=== PATIENT | female | born 1930 | race Caucasian/White ===

== ENCOUNTER 2017-06-06 10:41 | Inpatient (IN) ==
[2017-06-06] MEDS ORDERED: 0.9 % Sodium Chloride 500 ML IVC ONE ×2 (11:06→13:05)
--- NOTE | 2017-06-06 11:08 | Emergency Department Note ---
Disposition Clinical Impression: Atrial fibrillation with RVR, Acute kidney injury Dyspnea Qualifiers: Dyspnea type: unspecified Qualified Code(s): R06.00 - Dyspnea, unspecified Disposition: Admitted As Inpatient Condition: Fair General Adult HPI - General Chief complaint: ED Shortness of Breath/Dyspnea Stated complaint: BRANDT Time Seen by Provider: 06/06/17 10:45 Source: patient Limitations: age Nursing Notes Reviewed: Yes Vital Signs Reviewed: Yes - History of Present Illness HPI Narrative: 86-year-old female who presents to the emergency Department due to shortness of breath. She reports she has a history of atrial fibrillation. She was just admitted a little over one week ago due to congestive heart failure. The patient is a poor historian and is unable to give much more significant history aside from feeling short of breath and feeling "sick". EMS did administer a DuoNeb in route. Pain Scale: 0 Improves with: nothing Worsens with: nothing Associated symptoms: Reports: denies other symptoms Treatments Prior to Arrival: none - Related Data Home Medications Medication Instructions Recorded Confirmed Aspirin [Adult Low Dose Aspirin EC] 81 mg PO QAM 12/29/14 06/06/17 Docusate [Colace] 100 mg PO BID 12/29/14 06/06/17 FLUoxetine HCl [Prozac] 20 mg PO QAM 12/29/14 06/06/17 Nitroglycerin [Nitrostat] 0.4 mg SL Q5M PRN 12/29/14 06/06/17 Simvastatin [Zocor] 20 mg PO 12/29/14 06/06/17 Pantoprazole Sodium [Protonix] 40 mg PO QAM 06/10/15 06/06/17 Albuterol Sulfate [Albuterol 2 puff IH Q4HR PRN 04/26/17 06/06/17 Inhaler] Budesonide/Formoterol 160/4.5 2 puff IH QA 05/19/17 06/06/17 [Symbicort 160/4.5] Diltiazem HCl [Diltiazem 24Hr Cd] 360 mg PO QA 05/19/17 06/06/17 Isosorbide MONOnitrate (24 HR) 60 mg PO [facility] 05/19/17 06/06/17 [Imdur] Pramipexole Di-HCl [Pramipexole 0.5 mg PO 05/19/17 06/06/17 Dihydrochloride] hydrOXYzine HCl [Hydroxyzine HCl] 25 mg PO HS PRN 05/19/17 06/06/17 metOLazone [Zaroxolyn] 5 mg PO QAM 05/19/17 06/06/17 Furosemide [Lasix] 40 mg PO BID 06/06/17 06/06/17 Ipratropium/Albuterol Neb [Duoneb] 3 ml IH 0800,2000 06/06/17 06/06/17 Ipratropium/Albuterol Neb [Duoneb] 3 ml IH Q4H PRN 06/06/17 06/06/17 LORazepam [Ativan] 0.5 mg PO BID PRN 06/06/17 06/06/17 Lactose-Reduced Food [Ensure 1 bottle PO TIDWM 06/06/17 06/06/17 Liquid] Metoprolol Tartrate [Lopressor] 125 mg PO BID 06/06/17 06/06/17 Oxycodone HCl/Acetaminophen 1 each PO Q8H PRN 06/06/17 06/06/17 [Percocet 5-325 mg Tablet] Oxygen 3 l NS CONT 06/06/17 06/06/17 Potassium Chloride 40 meq PO QAM 06/06/17 06/06/17 Allergies Allergy/AdvReac Type Severity Reaction Status Date / Time Sulfa (Sulfonamide AdvReac Nausea Verified 10/20/16 14:06 Antibiotics) All systems ED: reviewed and negative except as stated. Constitutional: Denies: fever Cardiovascular: Reports: palpitations. Denies: chest pain Respiratory: Reports: cough, dyspnea Integumentary: Denies: rash Past Medical History - Past Medical History Medical history: Reports: arthritis, atrial fibrillation, CHF, COPD, coronary artery disease, CVA, GERD, hyperlipidemia, hypertension, osteoporosis Surgical history: Reports: angioplasty/stent, appendectomy, carotid endarterectomy, coronary bypass (CABG), hysterectomy, orthopedic, other, other, LE stent (s), LE vascular intervention Psychiatric history: Reports: anxiety, depression - Social History Smoking Status: Former smoker Smokeless Tobacco Status: No Alcohol use: Reports: none Drug use: Reports: none Physical Exam - General Limitations: age General appearance: alert, in no apparent distress - Head Head exam: atraumatic - Eye Eye exam: Present: normal appearance, PERRL - ENT ENT exam: normal exam - Neck Neck exam: Present: normal inspection - Respiratory Respiratory exam: Present: other (Mild coarse wheezing is present. No respiratory distress she is to get neck.) - Cardiovascular Cardiovascular exam: Present: tachycardia, irregular rhythm - Abdominal Exam Abdominal exam: Present: soft, Non-Tender - Extremities Exam Extremities exam: Present: normal inspection - Skin Skin exam: Present: warm, dry Course Course Narrative: Troponin of 0.04 is chronic. CXR shows no new acute abnormality. Afib RVR on EKG. Started cardizem and HR is now in the 90's. Symptoms of dyspnea have improved markedly after being on cardizem. Will admit. She received a total of 1L of NS. Conservative in hydration due to hx of CHF and recent admission for such. Dr Roque accepts. Vital Signs Temperature 0 F L 06/06/17 10:44 Pulse Rate 140 06/06/17 10:44 Respiratory Rate 18 06/06/17 10:44 Blood Pressure 110/75 06/06/17 10:44 O2 Sat by Pulse Oximetry 96 06/06/17 10:44 Temperature 97.7 F 06/08/17 15:10 Pulse Rate 92 06/08/17 15:10 Respiratory Rate 18 06/08/17 15:10 Blood Pressure 144/80 06/08/17 15:10 O2 Sat by Pulse Oximetry 94 06/08/17 15:10 Oxygen Delivery Oxygen Delivery Nasal Cannula Medical Decision Making - Medical Records Medical records reviewed: Yes I reviewed the patient's medical records. - Lab Data Lab results reviewed: Yes I reviewed the patient's lab results. Result diagrams: 06/07/17 05:30 06/08/17 05:55 Lab Results 06/06/17 06/06/17 06/06/17 Range/Units 11:10 11:10 11:10 WBC 14.9 H D (4.3-11.1) K/mcL RBC 4.49 (3.82-4.97) M/mcL Hgb 12.8 (11.5-15.4) g/dL Hct 41.1 (35.3-44.9) % MCV 91.5 (83.0-100.0) fL MCH 28.5 (28.0-33.3) pg MCHC 31.1 L (31.6-35.5) g/dL RDW 17.7 H (11.5-14.5) % Plt Count 500 H (140-400) K/mcL MPV 10.3 (9.4-12.4) fL Immature Gran % 0.7 (0-4) % Seg Neutrophils % 83.5 % Lymphocytes % 8.3 % Monocytes % 7.3 % Eosinophils % 0.0 % Basophils % 0.2 % Neutrophils # 12.4 H (1.6-8.9) K/mcL Lymphocytes # 1.2 (0.6-4.6) K/mcL Monocytes # 1.1 (0.0-1.3) K/mcL Eosinophils # 0.0 (0.0-0.6) K/mcL Basophils # 0.0 (0.0-0.2) K/mcL Sodium 137 (136-145) mEq/L Potassium 3.4 L (3.5-5.1) mEq/L Chloride 89 L (98-107) mEq/L Carbon Dioxide 35 H (23-29) mEq/L BUN 68 H (8-23) mg/dL Creatinine 1.34 H (0.60-1.20) mg/dL Est GFR ( Amer) 45 L (> 60) Est GFR (Non-Af Amer) 37 L (> 60) BUN/Creatinine Ratio 51 H (6-26) Glucose 183 H (70-105) mg/dL Calculated Osmolality 308 H (280-300) Lactic Acid 3.2 H (0.5-2.2) mmol/L Calcium 9.9 (8.6-10.3) mg/dL Troponin I (< 0.04) ng/mL B-Natriuretic Peptide (Less than 100) pg/mL Urine Color (Yellow) Urine Clarity (Clear) Urine pH (5.0-8.0) pH Units Ur Specific [place] (1.010-1.025) Urine Protein (Neg-Trace) mg/dL Urine Glucose (UA) (Normal) mg/dL Urine Ketones (Negative) mg/dL Urine Blood (Negative) Urine Nitrite (Negative) Urine Bilirubin (Negative) Urine Urobilinogen (Normal) mg/dL Ur Leukocyte Esterase (Negative) Ur Culture Indicated? (NO) 06/06/17 06/06/17 06/06/17 Range/Units 11:10 11:10 13:00 WBC (4.3-11.1) K/mcL RBC (3.82-4.97) M/mcL Hgb (11.5-15.4) g/dL Hct (35.3-44.9) % MCV (83.0-100.0) fL MCH (28.0-33.3) pg MCHC (31.6-35.5) g/dL RDW (11.5-14.5) % Plt Count (140-400) K/mcL MPV (9.4-12.4) fL Immature Gran % (0-4) % Seg Neutrophils % % Lymphocytes % % Monocytes % % Eosinophils % % Basophils % % Neutrophils # (1.6-8.9) K/mcL Lymphocytes # (0.6-4.6) K/mcL Monocytes # (0.0-1.3) K/mcL Eosinophils # (0.0-0.6) K/mcL Basophils # (0.0-0.2) K/mcL Sodium (136-145) mEq/L Potassium (3.5-5.1) mEq/L Chloride (98-107) mEq/L Carbon Dioxide (23-29) mEq/L BUN (8-23) mg/dL Creatinine (0.60-1.20) mg/dL Est GFR ( Amer) (> 60) Est GFR (Non-Af Amer) (> 60) BUN/Creatinine Ratio (6-26) Glucose (70-105) mg/dL Calculated Osmolality (280-300) Lactic Acid 1.8 (0.5-2.2) mmol/L Calcium (8.6-10.3) mg/dL Troponin I 0.04 H* (< 0.04) ng/mL B-Natriuretic Peptide 389 H (Less than 100) pg/mL Urine Color (Yellow) Urine Clarity (Clear) Urine pH (5.0-8.0) pH Units Ur Specific [place] (1.010-1.025) Urine Protein (Neg-Trace) mg/dL Urine Glucose (UA) (Normal) mg/dL Urine Ketones (Negative) mg/dL Urine Blood (Negative) Urine Nitrite (Negative) Urine Bilirubin (Negative) Urine Urobilinogen (Normal) mg/dL Ur Leukocyte Esterase (Negative) Ur Culture Indicated? (NO) 06/06/17 06/06/17 Range/Units 13:29 17:24 WBC (4.3-11.1) K/mcL RBC (3.82-4.97) M/mcL Hgb (11.5-15.4) g/dL Hct (35.3-44.9) % MCV (83.0-100.0) fL MCH (28.0-33.3) pg MCHC (31.6-35.5) g/dL RDW (11.5-14.5) % Plt Count (140-400) K/mcL MPV (9.4-12.4) fL Immature Gran % (0-4) % Seg Neutrophils % % Lymphocytes % % Monocytes % % Eosinophils % % Basophils % % Neutrophils # (1.6-8.9) K/mcL Lymphocytes # (0.6-4.6) K/mcL Monocytes # (0.0-1.3) K/mcL Eosinophils # (0.0-0.6) K/mcL Basophils # (0.0-0.2) K/mcL Sodium (136-145) mEq/L Potassium (3.5-5.1) mEq/L Chloride (98-107) mEq/L Carbon Dioxide (23-29) mEq/L BUN (8-23) mg/dL Creatinine (0.60-1.20) mg/dL Est GFR ( Amer) (> 60) Est GFR (Non-Af Amer) (> 60) BUN/Creatinine Ratio (6-26) Glucose (70-105) mg/dL Calculated Osmolality (280-300) Lactic Acid (0.5-2.2) mmol/L Calcium (8.6-10.3) mg/dL Troponin I 0.03 (< 0.04) ng/mL B-Natriuretic Peptide (Less than 100) pg/mL Urine Color Yellow (Yellow) Urine Clarity Clear (Clear) Urine pH 6.0 (5.0-8.0) pH Units Ur Specific [place] 1.017 (1.010-1.025) Urine Protein Negative (Neg-Trace) mg/dL Urine Glucose (UA) Normal (Normal) mg/dL Urine Ketones Negative (Negative) mg/dL Urine Blood Negative (Negative) Urine Nitrite Negative (Negative) Urine Bilirubin Negative (Negative) Urine Urobilinogen Normal (Normal) mg/dL Ur Leukocyte Esterase Negative (Negative) Ur Culture Indicated? NO (NO) - Radiology Data Radiology results reviewed: Yes I reviewed the patient's radiology results. - EKG Data EKG #1 EKG attestation: Yes I reviewed and interpreted this EKG. Rate: tachycardia Rhythm: A.Fib ST segment depression in: v5, v6 Interpretation: other (Afib RVR, rate 144.) Attestation Statement - Attestation Attestation: I, Samm Drew, examined this patient and my medical decision-making was reviewed with the HEALTH COUNSELOR/PA/Advanced Practice Nurse/Resident Physician. I agree with the documented findings, disposition and treatment plan as described except to the extent set forth below. 86-year-old female presents emergency department with concerns of generalized malaise, shortness of breath. Pt recently admitted for similar symptoms. Pt has a history of atrial fibrillation with RVR. EKG shows A. fib with RVR in the emergency department today. Heart rate improved with Cardizem in the emergency department. Patient be admitted to the hospital for continuation of care.
[2017-06-06 11:23] LABS: Basophils % 0.2 %; Hematocrit 41.1 % (35.3-44.9); Hemoglobin 12.8 g/dL (11.5-15.4); Immature Granulocytes % 0.7 % (0-4); Lymphocytes # 1.2 K/mcL (0.6-4.6); Lymphocytes % 8.3 %; Mean Corpuscular HGB Conc 31.1 g/dL (31.6-35.5); Mean Corpuscular Hemoglobin 28.5 pg (28.0-33.3); Mean Corpuscular Volume 91.5 fL (83.0-100.0); Mean Platelet Volume 10.3 fL (9.4-12.4); Monocytes # 1.1 K/mcL (0.0-1.3); Monocytes % 7.3 %; Neutrophils # 12.4 K/mcL (1.6-8.9); Platelet Count 500 K/mcL (140-400); Red Blood Count 4.49 M/mcL (3.82-4.97); Red Cell Distribution Width 17.7 % (11.5-14.5); Segmented Neutrophils % 83.5 %
[2017-06-06 11:38] LABS: Calcium 9.9 mg/dL (8.6-10.3); Potassium 3.4 mEq/L (3.5-5.1)
[2017-06-06 13:36] LABS: Bilirubin,Urine Negative (Negative); Blood,Urine Negative (Negative); Clarity,Urine Clear (Clear); Color,Urine Yellow (Yellow); Glucose,Urine (UA) Normal (Normal); Ketones,Urine Negative (Negative); Leukocyte Esterase,Urine Negative (Negative); Nitrite,Urine Negative (Negative); Protein,Urine Negative (Neg-Trace); Specific Gravity,Urine 1.017 (1.010-1.025); Urobilinogen,Urine Normal (Normal)
[2017-06-06] MEDS ORDERED: Naloxone 0.4 MG/ML INJ IVP PRN (15:16)
[2017-06-06] MEDS ORDERED: *HR* Morphine 2 MG/ML SYRINGE IVP PRN (15:16)
[2017-06-06] MEDS ORDERED: hydrOXYzine pamoate 25 MG CAPSULE PO PRN (15:20)
[2017-06-06] MEDS ORDERED: Nitroglycerin 0.4 MG TAB.SUBL SL PRN (15:20)
[2017-06-06] MEDS ORDERED: NON-FORMULARY MEDICATION 1 EACH EACH (Oxygen [Oxygen] 3 L) NS SCH (15:30)
--- NOTE | 2017-06-06 15:42 | Internal Med History&Physical ---
Date of Encounter: 06/06/17 Time of Encounter: 15:42 Assessment and Plan (1) Atrial fibrillation with rapid ventricular response Current visit: Yes Status: Acute Patient is presently admitted with atrial fibrillation with a rapid ventricular response. Her heart rate is between 130 and 140. EKG: Atrial fibrillation with rapid ventricular rate. Chest x-ray: Increased interstitial markings otherwise stable exam. Rate control: Intravenous Cardizem drip, titrate to keep heart rate between 80 and 90. Jass miroslava: Metoprolol 125 mg twice a day. Anticoagulation: This patient has a previous history of a GI bleed and recurrent falls. This patient is not a candidate for anticoagulation. (2) COPD (chronic obstructive pulmonary disease) Current visit: No Status: Chronic Atrial fibrillation with rapid ventricular rest is likely secondary to COPD exacerbation. Plan: We will start patient on IV levofloxacin 500 mg every 48 hours. We will start patient on IV Solu-Medrol 40 mg every 8 hour. We will start patient on inhaled bronchodilators. Was monitoring of the respiratory status Qualifiers: COPD type: unspecified COPD Qualified Code(s): J44.9 - Chronic obstructive pulmonary disease, unspecified (3) Hypertension Current visit: No Status: Chronic At this point blood pressure is within acceptable range. Noted that patient's creatinine is mildly worsened. We will trend the labs tomorrow. Qualifiers: Hypertension type: essential hypertension Qualified Code(s): I10 - Essential (primary) hypertension (4) Age-related physical debility Current visit: No Status: Acute Patient is a 86-year-old and she has age-related disability. (5) DVT prophylaxis Current visit: No Status: Acute Antiembolic stockings. Medical decision making: This patient has a moderate to severe risk of worsening in spite of being on appropriate medication due to the underlying advanced age and chronic comorbid conditions. Internal Medicine - H&P: HPI Chief complaint: shortness of breath Admitted From: Emergency Dept Plans for Post Hospital Care: Home History of present illness: Ms. Evans is a 86 year old female who is known to have a history of atrial fibrillation( unable to get anticoagulation due to the previous GI bleed/ recurrent falls) and was recently discharged from this hospital. [facility]. It was noted that, at the [facility] facility patient was reported sick and that was the reason she was sent back to this facility for further evaluation. Patient also known to have a congestive heart failure and multiple other comorbid conditions. Patient was evaluated in the emergency room, it was found that patient was in atrial fibrillation with rapid ventricular rate. She was started on IV Cardizem and was transferred to floor for further management. Upon further evaluation, patient informed me that she was short of breath and when squad came and they gave her del with which she failed little better. Past Med Surg Social Fam HX - Past Medical History Medical history: arthritis, atrial fibrillation, CHF, COPD, coronary artery disease, CVA, GERD, hyperlipidemia, hypertension, osteoporosis Psychiatric history: anxiety, depression - Past Surgical History Surgical History: angioplasty/stent, appendectomy, carotid endarterectomy, coronary bypass (CABG), hysterectomy, orthopedic, other, other, LE stent (s), LE vascular intervention - Social History Smoking Status: Former smoker Smokeless Tobacco Status: No Alcohol use: none Drug use: none - Family History Mother Living Status: Hx Family Cardiac Disorders: Yes (CAD) Father Living Status: Hx Family Cardiac Disorders: Yes (CAD) Hx Family Neurologic Disorders: Yes (epilepsy) Sister Living Status: Unknown Hx Family Cardiac Disorders: Yes (CAD) Hx Family Cancer: No Hx Family Neurologic Disorders: Yes (CVA) Internal Medicine - H&P: Meds Aspirin [Adult Low Dose Aspirin EC] 81 mg PO QAM 12/29/14 [History] Docusate [Colace] 100 mg PO BID 12/29/14 [History] FLUoxetine HCl [Prozac] 20 mg PO QAM 12/29/14 [History] Nitroglycerin [Nitrostat] 0.4 mg SL Q5M PRN 12/29/14 [History] Simvastatin [Zocor] 20 mg PO HS 12/29/14 [History] Pantoprazole Sodium [Protonix] 40 mg PO QAM 06/10/15 [History] Albuterol Sulfate [Albuterol Inhaler] 2 puff IH Q4HR PRN 04/26/17 [History] Budesonide/Formoterol 160/4.5 [Symbicort 160/4.5] 2 puff IH QAM 05/19/17 [ History] Diltiazem HCl [Diltiazem 24Hr Cd] 360 mg PO QAM 05/19/17 [History] Isosorbide MONOnitrate (24 HR) [Imdur] 60 mg PO QAM 05/19/17 [History] Pramipexole Di-HCl [Pramipexole Dihydrochloride] 0.5 mg PO HS 05/19/17 [History] hydrOXYzine HCl [Hydroxyzine HCl] 25 mg PO HS PRN 05/19/17 [History] metOLazone [Zaroxolyn] 5 mg PO QAM 05/19/17 [History] Furosemide [Lasix] 40 mg PO BID 06/06/17 [History] Ipratropium/Albuterol Neb [Duoneb] 3 ml IH 0800,2000 06/06/17 [History] Ipratropium/Albuterol Neb [Duoneb] 3 ml IH Q4H PRN 06/06/17 [History] LORazepam [Ativan] 0.5 mg PO BID PRN 06/06/17 [History] Lactose-Reduced Food [Ensure Liquid] 1 bottle PO TIDWM 06/06/17 [History] Metoprolol Tartrate [Lopressor] 125 mg PO BID 06/06/17 [History] Oxycodone HCl/Acetaminophen [Percocet 5-325 mg Tablet] 1 each PO Q8H PRN [History] Oxygen 3 l NS CONT 06/06/17 [History] Potassium Chloride 40 meq PO QAM 06/06/17 [History] 3 Allergy/AdvReac Type Severity Reaction Status Date / Time Sulfa (Sulfonamide AdvReac Nausea Verified 10/20/16 14:06 Antibiotics) All Systems PM: A 10-system review of systems was performed and is negative for pertinent findings except as documented above in the HPI. - Constitutional Constitutional: no chills, no fever(s), no night sweats - EENT Eyes: no change in vision, no discharge, no pain, no photophobia Ears: no ear discharge, no ear pain, no tinnitus Nose, mouth and throat: no dysphagia, no nasal discharge, no neck pain, no sore throat - Cardiovascular Cardiovascular ROS IM: no chest pain, no diaphoresis, no dyspnea, no lightheadedness, no palpitations, no syncope - Respiratory Respiratory: cough, dyspnea, excessive phlegm production, no wheezing - Gastrointestinal Gastrointestinal: no abdominal pain, no diarrhea, no hematemesis, no hematochezia, no melena, no nausea, no vomiting - Genitourinary Genitourinary: no change in urinary stream, no dysuria, no flank pain, no hematuria - Musculoskeletal Musculoskeletal ROS IM: no numbness, no tingling - Integumentary Integumentary IM: no rash, no unusual bruising - Neurological Neurological ROS: no confusion, no convulsions, no focal weakness, no numbness, no tingling, no tremor(s) - Hematologic/Lymphatic Hematologic/Lymphatic: no easy bruising - Constitutional Vitals: Temp Pulse Resp BP Pulse Ox 97.6 F 90 16 119/57 95 06/06/17 14:17 06/06/17 14:17 06/06/17 14:17 06/06/17 14:17 06/06/17 14:17 General appearance: Present: A&O X 3, pleasant, no acute distress, answers questions appropriately - Head Head exam: Present: atraumatic, normocephalic - Eye Eye exam: Present: PERRL, conjuntiva pink, sclera anicteric Pupils: Present: PERRL - Neck Neck exam general surgery: Present: supple, trachea midline. Absent: lymphadenopathy - Respiratory Respiratory exam: Present: CTAB. Absent: accessory muscle use, rales, rhonchi, wheezes - Cardiovascular Cardiovascular exam: Present: RRR, +S1, +S2. Absent: diastolic murmur, gallop, rubs, systolic murmur - GI/Abdominal GI/Abdominal exam: Present: normal bowel sounds, soft, no peritoneal signs. Absent: distended, tenderness - Extremities Exam Extremities exam: Present: warm, radial pulses palpable and symmetrical. Absent : calf tenderness, cyanotic, pedal edema - Neurological Exam Neurological exam: Present: CN II-XII intact, oriented X3, no focal deficits. Absent: pronater drift, facial droop, speech deficit - Skin Skin exam: Present: dry, intact Internal Med - H&P Results - Labs CBC & Chem 7: 06/06/17 11:10 06/06/17 11:10 Labs: Urine 06/06/17 Range/Units 13:29 Urine Color Yellow (Yellow) Urine Clarity Clear (Clear) Urine pH 6.0 (5.0-8.0) pH Units Ur Specific [place] 1.017 (1.010-1.025) Urine Protein Negative (Neg-Trace) mg/dL Urine Glucose (UA) Normal (Normal) mg/dL
[2017-06-06] MEDS: Ipratropium/Albuterol Neb 3 ML IH SCH ×4 (16:53→21:12)
[2017-06-06] MEDS ORDERED: Levofloxacin 500 MG/100 ML 500 MG/100 ML BAG IVPB SCH (18:00)
[2017-06-06] MEDS: *HR* OxyCODONE/APAP 5/325 TABLET PO PRN (20:45)
[2017-06-07] MEDS: Ipratropium/Albuterol Neb 3 ML IH SCH ×13 (00:01→23:45)
[2017-06-07] MEDS: MethylPREDNISolone 40 MG/ML VIAL IVP SCH ×3 (00:18→16:02)
[2017-06-07 05:48] LABS: INR 1.2; Prothrombin Time 13.5 Seconds (9.4-12.1)
[2017-06-07 05:51] LABS: Activated Partial Thrombo Time 25.9 Seconds (26.0-36.0); Basophils % 0.1 %; Hematocrit 35.5 % (35.3-44.9); Immature Granulocytes % 0.6 % (0-4); Lymphocytes # 0.7 K/mcL (0.6-4.6); Lymphocytes % 5.9 %; Mean Corpuscular HGB Conc 31.5 g/dL (31.6-35.5); Mean Corpuscular Hemoglobin 29.2 pg (28.0-33.3); Mean Corpuscular Volume 92.7 fL (83.0-100.0); Mean Platelet Volume 10.3 fL (9.4-12.4); Monocytes # 0.1 K/mcL (0.0-1.3); Monocytes % 0.8 %; Neutrophils # 10.6 K/mcL (1.6-8.9); Platelet Count 389 K/mcL (140-400); Red Blood Count 3.83 M/mcL (3.82-4.97); Red Cell Distribution Width 17.7 % (11.5-14.5); Segmented Neutrophils % 92.6 %
[2017-06-07 05:54] LABS: Hemoglobin 11.2 g/dL (11.5-15.4)
[2017-06-07 06:07] LABS: Alanine Aminotransferase 9 Units/L (7-52); Albumin/Globulin Ratio 0.9 (1.1-2.2); Alkaline Phosphatase 76 Units/L (34-104); Aspartate Amino Transferase 15 Units/L (13-39); BUN/Creatinine Ratio 60 (6-26); Bilirubin,Total 0.3 mg/dL (0.3-1.0); Blood Urea Nitrogen 58 mg/dL (8-23); Calcium 9.3 mg/dL (8.6-10.3); Carbon Dioxide 36 mEq/L (23-29); Chloride 93 mEq/L (98-107); Chol/HDL Ratio 3.5 (0-4.9); Cholesterol 130 mg/dL (< 200); Globulin 3.3 g/dL (2.4-3.5); Glucose 179 mg/dL (70-105); HDL Cholesterol 37 mg/dL (40-59); LDL Cholesterol,Calculated 81 mg/dL (0-99); Magnesium 2.2 mg/dL (1.6-2.6); Osmolality,Calculated 313 (280-300); Phosphorous 3.6 mg/dL (2.7-4.5); Potassium 3.4 mEq/L (3.5-5.1); Sodium 141 mEq/L (136-145); Total Protein 6.3 g/dL (6.4-8.9); Triglycerides 60 mg/dL (< 150); eGFR For African Americans > 60 (> 60); eGFR For Non-African Americans 54 (> 60)
[2017-06-07] MEDS: *HR* OxyCODONE/APAP 5/325 TABLET PO PRN ×3 (06:46→18:36)
[2017-06-07] MEDS: Isosorbide MONOnitrate (24 HR) 60 MG TAB.ER.24H PO SCH (09:08)
[2017-06-07] MEDS: FLUoxetine 20 MG CAPSULE PO SCH (09:08)
[2017-06-07] MEDS: Aspirin Enteric Coated 81 MG Tablet PO SCH (09:08)
[2017-06-07] MEDS: *HR* LORazepam 0.5 MG TABLET PO PRN ×2 (11:29→22:42)
--- NOTE | 2017-06-07 13:13 | Internal Med Progress Note ---
Date of Encounter: 06/07/17 Time of Encounter: 13:11 - Assessment and plan (1) Acute and chronic respiratory failure with hypoxia Current Visit: Yes Status: Acute Assessment and plan: Acute on chronic hypoxic respiratory failure secondary to acute COPD exacerbation due to sepsis from acute bacterial bronchitis Continue Levaquin, Solu-Medrol, DuoNeb's and oxygen therapy (2) Atrial fibrillation with rapid ventricular response Current Visit: Yes Status: Acute Assessment and plan: Secondary to acute COPD exacerbation Continue metoprolol Continue Cardizem drip (the patient takes diltiazem 360 mg daily) No anticoagulation due to history of recurrent severe GI bleed and falls (3) CKD (chronic kidney disease) Current Visit: No Status: Chronic Assessment and plan: Acute on chronic renal failure in the setting of chronic kidney disease of stage III, improving No IV fluids due to severe congestion Consider Lasix Qualifiers: Chronic kidney disease stage: stage 3 (moderate) Qualified Code(s): N18.3 - Chronic kidney disease, stage 3 (moderate) (4) Severe peripheral arterial disease Current Visit: No Status: Chronic (5) History of coronary artery bypass graft Current Visit: No Status: Chronic (6) History of CVA (cerebrovascular accident) Current Visit: No Status: Chronic (7) COPD exacerbation Current Visit: No Status: Chronic (8) Hypokalemia Current Visit: No Status: Acute Assessment and plan: Replete as needed - Subjective Interval history: Very congested, very short of breath, no fevers or chills, no chest pain no abdominal pain or dysuria - Constitutional Vitals: Temp Pulse Resp BP Pulse Ox 97.8 F 90 16 117/65 93 06/07/17 12:07 06/07/17 12:07 06/07/17 12:07 06/07/17 12:07 06/07/17 12:07 General appearance: Present: A&O X 3, pleasant, no acute distress, answers questions appropriately - Head Head exam: Present: atraumatic, normocephalic - Eye Eye exam: Present: PERRL, conjuntiva pink, sclera anicteric Pupils: Present: PERRL - Neck Neck exam general surgery: Present: supple, trachea midline. Absent: lymphadenopathy - Respiratory Respiratory exam: Present: CTAB, rales, wheezes (Diffuse crackles and wheezing) . Absent: accessory muscle use, rhonchi - Cardiovascular Cardiovascular exam: Present: RRR, +S1, +S2. Absent: diastolic murmur, gallop, rubs, systolic murmur - GI/Abdominal GI/Abdominal exam: Present: normal bowel sounds, soft, no peritoneal signs. Absent: distended, tenderness - Extremities Exam Extremities exam: Present: warm, radial pulses palpable and symmetrical. Absent : calf tenderness, cyanotic, pedal edema - Neurological Exam Neurological exam: Present: CN II-XII intact, oriented X3, no focal deficits. Absent: pronater drift, facial droop, speech deficit - Skin Skin exam: Present: dry, intact Internal Medicine: Result - Labs CBC & Chem 7: 06/07/17 05:30 06/07/17 05:30 Labs: Short CBC 06/07/17 Range/Units 05:30 WBC 11.4 H (4.3-11.1) K/mcL Hgb 11.2 L D (11.5-15.4) g/dL Hct 35.5 (35.3-44.9) % Plt Count 389 (140-400) K/mcL Neutrophils # 10.6 H (1.6-8.9) K/mcL BMP 06/07/17 05:30 Sodium 141 Potassium 3.4 L Chloride 93 L Carbon Dioxide 36 H BUN 58 H Creatinine 0.97 Glucose 179 H Calcium 9.3 Cardiac Enzymes 06/06/17 06/07/17 Range/Units 23:46 05:30 Troponin I 0.03 0.03 (< 0.04) ng/mL Liver Function 06/07/17 Range/Units 05:30 Total Bilirubin 0.3 (0.3-1.0) mg/dL AST 15 (13-39) Units/L ALT 9 (7-52) Units/L Alkaline Phosphatase 76 (34-104) Units/L Albumin 3.0 L (3.5-5.7) g/dL - ABG Interpretation ABG results: PT/INR, D-dimer PT 13.5 Seconds (9.4-12.1) H 06/07/17 05:30 Consult Discharge Plan - Plan Referrals: Tamiko Keys CNP [Primary Care Provider] - 06/15/17 10:35 am Adis Rey MD [Partnered Physician] - 01/23/18 1:45 pm Aubrey Torres MD [Partnered Physician] - 06/24/17 11:30 am
--- NOTE | 2017-06-07 13:57 | Electrocardiograph Report ---
[place] [id number] Test Date: 2017-06-06 Pat Name: Ivette Evans Department: 104 Room: [id number] Gender: F Ham Stringer: : 1930 Requested By: Samm Drew Order Number: [id number] Reading MD: Kandice Nelson Measurements Intervals [place] Rate: 144 P: CT: 0 QRS: 112 QRSD: 93 T: -66 QT: 278 QTc: 361 Interpretive Statements ATRIAL FIBRILLATION WITH RAPID VENTRICULAR RESPONSE ST DEVIATION AND MODERATE T-WAVE ABNORMALITY, CONSIDER ANTERIOR ISCHEMIA [-0.1+ mV T WAVE IN V3/V4] ST DEVIATION AND MODERATE T-WAVE ABNORMALITY, CONSIDER INFERIOR ISCHEMIA [-0.1+ mV T WAVE IN II/aVF] Electronically Signed On 06-07-2017 13:55:42 EST by Kandice Nelson
[2017-06-08] MEDS: MethylPREDNISolone 40 MG/ML VIAL IVP SCH ×2 (00:53→09:17)
[2017-06-08] MEDS: *HR* OxyCODONE/APAP 5/325 TABLET PO PRN ×3 (00:53→14:57)
[2017-06-08] MEDS: Ipratropium/Albuterol Neb 3 ML IH SCH ×6 (03:57→23:34)
[2017-06-08 06:39] LABS: BUN/Creatinine Ratio 56 (6-26); Blood Urea Nitrogen 57 mg/dL (8-23); Calcium 9.2 mg/dL (8.6-10.3); Carbon Dioxide 32 mEq/L (23-29); Chloride 97 mEq/L (98-107); Glucose 215 mg/dL (70-105); Osmolality,Calculated 302 (280-300); Potassium 4.9 mEq/L (3.5-5.1); Sodium 135 mEq/L (136-145); eGFR For African Americans > 60 (> 60); eGFR For Non-African Americans 51 (> 60)
[2017-06-08] MEDS: Aspirin Enteric Coated 81 MG Tablet PO SCH (09:17)
[2017-06-08] MEDS: FLUoxetine 20 MG CAPSULE PO SCH (09:19)
[2017-06-08] MEDS: Isosorbide MONOnitrate (24 HR) 60 MG TAB.ER.24H PO SCH (09:49)
[2017-06-08] MEDS: predniSONE 20 MG TABLET PO SCH (13:19)
[2017-06-08] MEDS: Furosemide 40 MG/4 ML VIAL IVP SCH (13:19)
[2017-06-08] MEDS: Diltiazem CD (24hr) 180 MG CAPSULE PO SCH (16:36)
[2017-06-08] MEDS: *HR* LORazepam 0.5 MG TABLET PO PRN (16:36)
--- NOTE | 2017-06-08 17:31 | Internal Med Progress Note ---
<Raza Garcia - Last Filed: 06/08/17 17:28> Date of Encounter: 06/08/17 Time of Encounter: 08:00 - Assessment and plan (1) Atrial fibrillation with rapid ventricular response Current Visit: Yes Status: Acute Assessment and plan: Secondary to COPD exacerbation and diastolic heart failure exacerbation. Currently rate controlled while weaning off Cardizem drip with plans to switch to oral Cardizem today. 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 - Continue to wean back to patient's baseline of 3 L nasal cannula oxygen - IV Lasix 40 mg daily - 2 L fluid restrictions - 40 mg by mouth prednisone - Levaquin 750 every 48 hours - Daily weights, 2 g sodium restrictions - Continue cardiac monitoring (4) Diastolic CHF Current Visit: No Status: Acute Assessment and plan: Patient demonstrates volume overload with auscultation demonstrating diffuse rhonchi, JVD and a BNP of 456 Plan: - 40 mg IV Lasix daily - Fluid restrictions, sodium restrictions and daily weights as discussed above - Wean oxygen as tolerated, monitor rate and rhythm Qualifiers: Congestive heart failure chronicity: acute on chronic Qualified Code(s): I50.33 - Acute on chronic diastolic (congestive) heart failure (5) DVT prophylaxis Current Visit: No Status: Acute Assessment and plan: Subcutaneous heparin (6) Hyperglycemia Current Visit: Yes Status: Acute Assessment and plan: No documentation of previous diabetes. Glucose 215 in the setting of steroid use. - We will start low-dose sliding scale with before meals and at bedtime glucose checks - Subjective Interval history: Mrs. Evans has been seen and evaluated at bedside. She is awake alert and interactive no acute distress. She states that she does have some shortness of breath but improved compared to yesterday denies any chest pain or chest pressure, nausea vomiting diarrhea constipation. She denies any other concerns at this time. - Constitutional Vitals: Temp Pulse Resp BP Pulse Ox 97.7 F 92 18 144/80 94 06/08/17 15:10 06/08/17 15:10 06/08/17 15:10 06/08/17 15:10 06/08/17 15:10 General appearance: Present: A&O X 3, pleasant, no acute distress, answers questions appropriately Exam: General: Patient alert, awake, oriented 3, interactive, in no acute distress HEENT: Normocephalic, atraumatic, pupils equal reactive to light, neck supple trachea midline no palpable lymphadenopathy, no thyromegaly. Chest: Symmetric bilateral correlating with respiratory effort, effort nonlabored. Cardiac: Irregularly irregular heart rate and rhythm. no bruits appreciated bilateral carotids, Radial pulses 2+ bilateral, posterior tibial and dorsal pedal pulses 2+ bilateral. Respiratory: Diminished inspiratory and expiratory breath sounds, diffuse rhonchi Abdomen: Soft, nontender, positive bowel sounds, no palpable masses appreciated on examination Extremities: Symmetric bilateral, bilateral lower extremities without erythema or edema patient moving all 4 extremities spontaneously. Neurologic: No focal deficits appreciated on examination. Face symmetric, muscle strength symmetric bilateral upper and lower extremities. Internal Medicine: Result - Labs CBC & Chem 7: 06/07/17 05:30 06/08/17 05:55 Labs: BMP 06/08/17 05:55 Sodium 135 L Potassium 4.9 Chloride 97 L Carbon Dioxide 32 H BUN 57 H Creatinine 1.02 Glucose 215 H Calcium 9.2 - ABG Interpretation ABG results: PT/INR, D-dimer PT 13.5 Seconds (9.4-12.1) H 06/07/17 05:30 Consult Discharge Plan - Plan Referrals: Tamiko Keys CNP [Primary Care Provider] - 06/15/17 10:35 am Adis Rey MD [Partnered Physician] - 06/15/17 1:45 pm Aubrey Torres MD [Partnered Physician] - 06/24/17 11:30 am <Carlos Wills - Last Filed: 06/08/17 18:53> Date of Encounter: 06/08/17 - Assessment and plan (1) Acute and chronic respiratory failure with hypoxia Current Visit: Yes Status: Acute (2) Atrial fibrillation Current Visit: No Status: Chronic Qualifiers: Atrial fibrillation type: paroxysmal Qualified Code(s): I48.0 - Paroxysmal atrial fibrillation (3) CHF exacerbation Current Visit: No Status: Acute Qualifiers: Congestive heart failure type: diastolic Qualified Code(s): I50.33 - Acute on chronic diastolic (congestive) heart failure (4) CKD (chronic kidney disease) Current Visit: No Status: Chronic Qualifiers: Chronic kidney disease stage: stage 3 (moderate) Qualified Code(s): N18.3 - Chronic kidney disease, stage 3 (moderate) (5) Hypertension Current Visit: No Status: Chronic Qualifiers: Hypertension type: essential hypertension Qualified Code(s): I10 - Essential (primary) hypertension - Constitutional Vitals: Temp Pulse Resp BP Pulse Ox 97.7 F 92 16 144/80 93 06/08/17 15:10 06/08/17 15:10 06/08/17 16:44 06/08/17 15:10 06/08/17 16:44 Internal Medicine: Result - Labs CBC & Chem 7: 06/07/17 05:30 06/08/17 05:55 Labs: BMP 06/08/17 05:55 Sodium 135 L Potassium 4.9 Chloride 97 L Carbon Dioxide 32 H BUN 57 H Creatinine 1.02 Glucose 215 H Calcium 9.2 - ABG Interpretation ABG results: PT/INR, D-dimer PT 13.5 Seconds (9.4-12.1) H 06/07/17 05:30 - Attending Attestation I examined this patient and my medical decision-making was reviewed with the Resident Physician on 06/08/17. I agree with the documented findings, disposition and treatment plan as described except to the extent set forth below. Ms Evans is currently admitted for rapid a fib and CHR exacerbation. She remains moderate to high risk due to potential for worsening clinical status. Ms Evans feels anxious. She has a lot of congestion in her chest. No fever or chills. No abd pain. Exam Alert. Comfortable Mucus membranes dry Heart irreg Lungs with rhonchi Abd soft I/P 1. Hypoxia 2. A fib 3. CHF Further diagnoses and plan as above.
[2017-06-08] MEDS ORDERED: D5% in Water 1,000 ML IVC PRN (17:41)
[2017-06-08] MEDS ORDERED: *HR* Dextrose 50 % in Water (Syg) 50 ML SYRINGE IVP PRN (17:41)
[2017-06-08] MEDS ORDERED: Dextrose Gel 15 GM/37.5 ML TUBE PO PRN ×2 (17:41)
[2017-06-08] MEDS ORDERED: Levofloxacin 750 MG/150 ML 750 MG/150 ML BAG IVPB SCH (18:00)
[2017-06-08] MEDS: *HR* Heparin 5,000 UNIT/ML VIAL SQ SCH (18:42)
[2017-06-09] MEDS: *HR* OxyCODONE/APAP 5/325 TABLET PO PRN ×3 (00:03→16:34)
[2017-06-09] MEDS: *HR* LORazepam 0.5 MG TABLET PO PRN ×3 (00:04→14:39)
[2017-06-09] MEDS: Insulin LISPRO 300 UNITS/3 ML VIAL SQ SCH ×5 (00:04→20:09)
[2017-06-09] MEDS: Ipratropium/Albuterol Neb 3 ML IH SCH ×6 (04:18→23:21)
[2017-06-09 05:38] LABS: Basophils % 0.3 %; Hematocrit 34.6 % (35.3-44.9); Hemoglobin 10.8 g/dL (11.5-15.4); Immature Granulocytes % 2.2 % (0-4); Lymphocytes # 0.8 K/mcL (0.6-4.6); Lymphocytes % 7.4 %; Mean Corpuscular HGB Conc 31.2 g/dL (31.6-35.5); Mean Corpuscular Volume 92.8 fL (83.0-100.0); Mean Platelet Volume 9.9 fL (9.4-12.4); Monocytes # 0.5 K/mcL (0.0-1.3); Monocytes % 4.1 %; Neutrophils # 9.5 K/mcL (1.6-8.9); Platelet Count 371 K/mcL (140-400); Red Blood Count 3.73 M/mcL (3.82-4.97); Red Cell Distribution Width 17.3 % (11.5-14.5)
[2017-06-09] MEDS: *HR* Heparin 5,000 UNIT/ML VIAL SQ SCH ×2 (05:48→16:34)
[2017-06-09 05:54] LABS: Albumin 2.9 g/dL (3.5-5.7); Albumin/Globulin Ratio 0.9 (1.1-2.2); Bilirubin,Total 0.3 mg/dL (0.3-1.0); Globulin 3.2 g/dL (2.4-3.5); Potassium 4.7 mEq/L (3.5-5.1); Total Protein 6.1 g/dL (6.4-8.9)
[2017-06-09] MEDS: predniSONE 20 MG TABLET PO SCH (09:43)
[2017-06-09] MEDS: Furosemide 40 MG/4 ML VIAL IVP SCH (09:43)
[2017-06-09] MEDS: FLUoxetine 20 MG CAPSULE PO SCH (09:44)
[2017-06-09] MEDS: Aspirin Enteric Coated 81 MG Tablet PO SCH (09:44)
[2017-06-09] MEDS: Diltiazem CD (24hr) 180 MG CAPSULE PO SCH (09:45)
--- NOTE | 2017-06-09 10:43 | Discharge Summary ---
Date of Encounter: 06/09/17 Time of Encounter: 10:43 - Discharge Diagnosis (1) Atrial fibrillation with rapid ventricular response Priority: Primary Status: Acute (2) CKD (chronic kidney disease) Priority: Primary Status: Chronic Qualifiers: Chronic kidney disease stage: stage 3 (moderate) Qualified Code(s): N18.3 - Chronic kidney disease, stage 3 (moderate) (3) Acute and chronic respiratory failure with hypoxia Priority: Primary Status: Acute (4) Diastolic CHF Priority: Primary Status: Acute Qualifiers: Congestive heart failure chronicity: acute on chronic Qualified Code(s): I50.33 - Acute on chronic diastolic (congestive) heart failure (5) DVT prophylaxis Priority: Secondary Status: Acute (6) Hyperglycemia Priority: Primary Status: Acute - Discharge Medications Home Medications: Aspirin [Adult Low Dose Aspirin EC] 81 mg PO QAM 12/29/14 [History] Docusate [Colace] 100 mg PO BID 12/29/14 [History] FLUoxetine HCl [Prozac] 20 mg PO QAM 12/29/14 [History] Nitroglycerin [Nitrostat] 0.4 mg SL Q5M PRN 12/29/14 [History] Simvastatin [Zocor] 20 mg PO HS 12/29/14 [History] Pantoprazole Sodium [Protonix] 40 mg PO QAM 06/10/15 [History] Albuterol Sulfate [Albuterol Inhaler] 2 puff IH Q4HR PRN 04/26/17 [History] Budesonide/Formoterol 160/4.5 [Symbicort 160/4.5] 2 puff IH QAM 05/19/17 [ History] Diltiazem HCl [Diltiazem 24Hr Cd] 360 mg PO QAM 05/19/17 [History] Isosorbide MONOnitrate (24 HR) [Imdur] 60 mg PO QAM 05/19/17 [History] Pramipexole Di-HCl [Pramipexole Dihydrochloride] 0.5 mg PO HS 05/19/17 [History] hydrOXYzine HCl [Hydroxyzine HCl] 25 mg PO HS PRN 05/19/17 [History] metOLazone [Zaroxolyn] 5 mg PO QAM 05/19/17 [History] Furosemide [Lasix] 40 mg PO BID 06/06/17 [History] Ipratropium/Albuterol Neb [Duoneb] 3 ml IH 0800,199906/06/17 [History] Ipratropium/Albuterol Neb [Duoneb] 3 ml IH Q4H PRN 06/06/17 [History] LORazepam [Ativan] 0.5 mg PO BID PRN 06/06/17 [History] Lactose-Reduced Food [Ensure Liquid] 1 bottle PO TIDWM 06/06/17 [History] Metoprolol Tartrate [Lopressor] 125 mg PO BID 06/06/17 [History] Oxycodone HCl/Acetaminophen [Percocet 5-325 mg Tablet] 1 each PO Q8H PRN [History] Oxygen 3 l NS CONT 06/06/17 [History] Potassium Chloride 40 meq PO QAM 06/06/17 [History] Allergies/Adverse Reactions: 3 Allergy/AdvReac Type Severity Reaction Status Date / Time Sulfa (Sulfonamide AdvReac Nausea Verified 10/20/16 14:06 Antibiotics) Date of admission: 06/06/17 17:25 Primary care physician: Tamiko Keys CNP Consults: 06/07/17 11:40 Consult to Magazine Repairer [CONS] Routine Reason for SW Consult: From [facility] 06/08/17 10:58 Consult to Physical Therapy [CONS] Routine Comment: Evaluate, develop and implement POC Reason for Consult: Return to [facility]CF 06/08/17 10:59 Consult to Occupational Therapy [CONS] Routine Comment: Evaluate, develop and implement POC Reason for Consult: Return to ECF Discharging clinician: Raza Garcia Anticipated date of discharge: 06/09/17 - Patient Status Condition: Fair - Discharge Instructions Follow Up With: Tamiko Keys CNP [Primary Care Provider] - 06/15/17 10:35 am Adis Rey MD [Partnered Physician] - 06/15/17 1:45 pm Aubrey Torres MD [Partnered Physician] - 06/24/17 11:30 am Hospital course: Ms. Evans is a 86 year old female - Time Spent with Patient Total time spent providing and/or coordinating discharge services: - Constitutional Vitals: Temp Pulse Resp BP Pulse Ox 97.7 F 70 14 107/62 94 06/09/17 10:27 06/09/17 10:27 06/09/17 10:27 06/09/17 10:27 06/09/17 10:27 General appearance: Present: A&O X 3, pleasant, no acute distress, answers questions appropriately - VTE Documentation of Mechanical Device: Graduated compression elastic hosiery
--- NOTE | 2017-06-09 11:19 | Internal Med Progress Note ---
<Raza Garcia - Last Filed: 06/09/17 11:16> Date of Encounter: 06/09/17 Time of Encounter: 10:00 - Assessment and plan (1) Atrial fibrillation with rapid ventricular response Current Visit: Yes Status: Acute Assessment and plan: Secondary to COPD exacerbation and diastolic heart failure exacerbation. Currently uncontrolled, difficulty likely secondary to hypoxia, COPD exacerbation and vascular overload. Plan: - Cardizem 360 CD by mouth every morning - Metoprolol tartrate 125 mg by mouth twice a day - Improve respiratory status and diuresis. 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 - Continue to wean back to patient's baseline of 3 L nasal cannula oxygen - IV Lasix 40 mg daily - 1 time dose IV Lasix 40 mg push - 2 L fluid restrictions - 40 mg by mouth prednisone - Levaquin 750 every 48 hours - Daily weights, 2 g sodium restrictions - Continue cardiac monitoring - Symbicort 160 BID (4) Diastolic CHF Current Visit: No Status: Acute Assessment and plan: Patient demonstrates volume overload with auscultation demonstrating diffuse rhonchi, JVD and a BNP of 456 Plan: - 40 mg IV Lasix daily - Fluid restrictions, sodium restrictions and daily weights as discussed above - Wean oxygen as tolerated, monitor rate and rhythm Qualifiers: Congestive heart failure chronicity: acute on chronic Qualified Code(s): I50.33 - Acute on chronic diastolic (congestive) heart failure (5) Hyperglycemia Current Visit: Yes Status: Acute Assessment and plan: No documentation of previous diabetes. Glucose 197 in the setting of steroid use. - Continue low-dose sliding scale with before meals and at bedtime glucose checks (6) DVT prophylaxis Current Visit: No Status: Acute Assessment and plan: Subcutaneous heparin - Subjective Interval history: Mrs. Evans has been seen and evaluated at bedside. She is awake alert interactive and says that she is very lethargic. She is asking about her discharge back to [facility] for which her is agreeable. She denies any acute changes overnight. She denies any shortness of breath increased work of breathing but does have difficulty with ambulation. According to nursing staff her oxygen saturation dropped to 70% at her baseline 3 L nasal Oxygen with any sort of ambulation. - Constitutional Vitals: Temp Pulse Resp BP Pulse Ox 97.7 F 70 14 107/62 94 06/09/17 10:27 06/09/17 10:27 06/09/17 10:27 06/09/17 10:27 06/09/17 10:27 General appearance: Present: A&O X 3, pleasant, no acute distress, answers questions appropriately Exam: General: Patient alert, awake, oriented 3, interactive, in no acute distress HEENT: Normocephalic, atraumatic, pupils equal reactive to light, nasal cavity patent and open septum median position, oral mucosa moist, uvula midline, neck supple trachea midline no palpable lymphadenopathy, no thyromegaly. Chest: Symmetric bilateral correlating with respiratory effort, effort nonlabored. Cardiac: Irregularly irregular heart rate and rhythm. no bruits appreciated bilateral carotids, Radial pulses 2+ bilateral, posterior tibial and dorsal pedal pulses 2+ bilateral. Respiratory: Diminished inspiratory and expiratory breath sounds, diffuse rhonchi with exhalation wheezing. Abdomen: Soft, nontender, positive bowel sounds, no palpable masses appreciated on examination Extremities: Symmetric bilateral, bilateral lower extremities without erythema or edema patient moving all 4 extremities spontaneously. Neurologic: No focal deficits appreciated on examination. Face symmetric, muscle strength symmetric bilateral upper and lower extremities. Internal Medicine: Result - Labs CBC & Chem 7: 06/09/17 05:21 06/09/17 05:21 Labs: Short CBC 06/09/17 Range/Units 05:21 WBC 11.0 (4.3-11.1) K/mcL Hgb 10.8 L (11.5-15.4) g/dL Hct 34.6 L (35.3-44.9) % Plt Count 371 (140-400) K/mcL Neutrophils # 9.5 H (1.6-8.9) K/mcL BMP 06/09/17 05:21 Sodium 134 L Potassium 4.7 Chloride 95 L Carbon Dioxide 33 H BUN 50 H Creatinine 1.08 Glucose 197 H Calcium 9.0 Liver Function 06/09/17 Range/Units 05:21 Total Bilirubin 0.3 (0.3-1.0) mg/dL AST 16 (13-39) Units/L ALT 9 (7-52) Units/L Alkaline Phosphatase 62 (34-104) Units/L Albumin 2.9 L (3.5-5.7) g/dL - ABG Interpretation ABG results: PT/INR, D-dimer PT 13.5 Seconds (9.4-12.1) H 06/07/17 05:30 - VTE Documentation of Mechanical Device: Graduated compression elastic hosiery Consult Discharge Plan - Plan Referrals: Tamiko Keys CNP [Primary Care Provider] - 06/15/17 10:35 am Adis Rey MD [Partnered Physician] - 06/15/17 1:45 pm Aubrey Torres MD [Partnered Physician] - 06/24/17 11:30 am <Carlos Wills - Last Filed: 06/09/17 19:17> Date of Encounter: 06/09/17 - Assessment and plan (1) Acute and chronic respiratory failure with hypoxia Current Visit: Yes Status: Acute (2) Atrial fibrillation Current Visit: No Status: Chronic Qualifiers: Atrial fibrillation type: paroxysmal Qualified Code(s): I48.0 - Paroxysmal atrial fibrillation (3) CHF exacerbation Current Visit: No Status: Acute Qualifiers: Congestive heart failure type: diastolic Qualified Code(s): I50.33 - Acute on chronic diastolic (congestive) heart failure (4) CKD (chronic kidney disease) Current Visit: No Status: Chronic Qualifiers: Chronic kidney disease stage: stage 3 (moderate) Qualified Code(s): N18.3 - Chronic kidney disease, stage 3 (moderate) (5) Hypertension Current Visit: No Status: Chronic Qualifiers: Hypertension type: essential hypertension Qualified Code(s): I10 - Essential (primary) hypertension - Constitutional Vitals: Temp Pulse Resp BP Pulse Ox 97.8 F 85 16 123/76 93 06/09/17 14:42 06/09/17 14:42 06/09/17 15:32 06/09/17 14:42 06/09/17 15:32 Internal Medicine: Result - Labs CBC & Chem 7: 06/09/17 05:21 06/09/17 05:21 Labs: Short CBC 06/09/17 Range/Units 05:21 WBC 11.0 (4.3-11.1) K/mcL Hgb 10.8 L (11.5-15.4) g/dL Hct 34.6 L (35.3-44.9) % Plt Count 371 (140-400) K/mcL Neutrophils # 9.5 H (1.6-8.9) K/mcL BMP 06/09/17 05:21 Sodium 134 L Potassium 4.7 Chloride 95 L Carbon Dioxide 33 H BUN 50 H Creatinine 1.08 Glucose 197 H Calcium 9.0 Liver Function 06/09/17 Range/Units 05:21 Total Bilirubin 0.3 (0.3-1.0) mg/dL AST 16 (13-39) Units/L ALT 9 (7-52) Units/L Alkaline Phosphatase 62 (34-104) Units/L Albumin 2.9 L (3.5-5.7) g/dL - ABG Interpretation ABG results: PT/INR, D-dimer PT 13.5 Seconds (9.4-12.1) H 06/07/17 05:30 - Attending Attestation I examined this patient and my medical decision-making was reviewed with the Resident Physician on 06/09/17. I agree with the documented findings, disposition and treatment plan as described except to the extent set forth below. Ms Evans is currently admitted for rapid a fib and respiratory failure. She remains moderate to high risk due to potential for worsening clinical status. Ms Evans is still very congested in her chest. No fever or chills. No CP. Seems to be more wheezing today. Exam alert. Comfortable Mucus membranes dry Heart irreg Lungs with rhonchi I/P 1. Resp failure 2. A fib Further diagnoses and plan as above.
[2017-06-09] MEDS: Budesonide/Formoterol 160/4.5 MDI IH SCH (19:49)
[2017-06-10 03:49] LABS: Basophils % 0.4 %; Hematocrit 37.9 % (35.3-44.9); Hemoglobin 11.7 g/dL (11.5-15.4); Immature Granulocytes % 3.2 % (0-4); Immature Platelets 3.1 % (1.1-6.1); Lymphocytes % 11.4 %; Mean Corpuscular HGB Conc 30.9 g/dL (31.6-35.5); Mean Corpuscular Hemoglobin 28.9 pg (28.0-33.3); Mean Corpuscular Volume 93.6 fL (83.0-100.0); Mean Platelet Volume 10.1 fL (9.4-12.4); Monocytes # 0.7 K/mcL (0.0-1.3); Monocytes % 7.5 %; Platelet Count 405 K/mcL (140-400); Red Blood Count 4.05 M/mcL (3.82-4.97); Red Cell Distribution Width 17.2 % (11.5-14.5); Segmented Neutrophils % 77.5 %
[2017-06-10] MEDS: Ipratropium/Albuterol Neb 3 ML IH SCH ×6 (04:11→23:39)
[2017-06-10 04:22] LABS: Alanine Aminotransferase 14 Units/L (7-52); Albumin 2.9 g/dL (3.5-5.7); Albumin/Globulin Ratio 0.9 (1.1-2.2); Alkaline Phosphatase 58 Units/L (34-104); Aspartate Amino Transferase 22 Units/L (13-39); BUN/Creatinine Ratio 47 (6-26); Bilirubin,Total 0.3 mg/dL (0.3-1.0); Blood Urea Nitrogen 48 mg/dL (8-23); Calcium 9.2 mg/dL (8.6-10.3); Carbon Dioxide 32 mEq/L (23-29); Chloride 97 mEq/L (98-107); Globulin 3.1 g/dL (2.4-3.5); Glucose 161 mg/dL (70-105); Osmolality,Calculated 300 (280-300); Potassium 4.3 mEq/L (3.5-5.1); Sodium 137 mEq/L (136-145); eGFR For African Americans > 60 (> 60); eGFR For Non-African Americans 51 (> 60)
[2017-06-10] MEDS: *HR* OxyCODONE/APAP 5/325 TABLET PO PRN ×3 (05:32→21:29)
[2017-06-10] MEDS: *HR* Heparin 5,000 UNIT/ML VIAL SQ SCH ×2 (05:33→19:22)
[2017-06-10] MEDS: Budesonide/Formoterol 160/4.5 MDI IH SCH ×2 (07:33→19:37)
[2017-06-10] MEDS: Furosemide 40 MG/4 ML VIAL IVP SCH (08:42)
[2017-06-10] MEDS: Aspirin Enteric Coated 81 MG Tablet PO SCH (08:42)
[2017-06-10] MEDS: Diltiazem CD (24hr) 180 MG CAPSULE PO SCH (08:43)
[2017-06-10] MEDS: FLUoxetine 20 MG CAPSULE PO SCH (08:43)
[2017-06-10] MEDS: predniSONE 20 MG TABLET PO SCH (08:43)
[2017-06-10] MEDS: Insulin LISPRO 300 UNITS/3 ML VIAL SQ SCH ×4 (09:10→21:31)
--- NOTE | 2017-06-10 15:25 | Internal Med Progress Note ---
<Raza Garcia - Last Filed: 06/10/17 15:21> Date of Encounter: 06/10/17 Time of Encounter: 15:22 - Assessment and plan (1) Atrial fibrillation with rapid ventricular response Current Visit: Yes Status: Acute Assessment and plan: Secondary to COPD exacerbation and diastolic heart failure exacerbation. Currently uncontrolled, difficulty likely secondary to hypoxia, COPD exacerbation and vascular overload. Plan: - Cardizem 360 CD by mouth every morning - Increase Metoprolol tartrate 150 mg by mouth twice a day - Improve respiratory status and diuresis. - alarm security or surveillance monitor (2) CKD (chronic kidney disease) Current Visit: No Status: Chronic Assessment and plan: Stable chronic kidney disease stage III - We will continue his IV Lasix for treatment of CHF exacerbation - Avoid nephrotoxic medications and renally dose antibiotics Qualifiers: Chronic kidney disease stage: stage 3 (moderate) Qualified Code(s): N18.3 - Chronic kidney disease, stage 3 (moderate) (3) Acute and chronic respiratory failure with hypoxia Current Visit: Yes Status: Acute Assessment and plan: Acute on chronic hypoxic respiratory failure secondary to acute COPD and CHF exacerbation. - Continue to wean back to patient's baseline of 3 L nasal cannula oxygen - IV Lasix 40 mg daily - 2 L fluid restrictions - 40 mg by mouth prednisone - Levaquin 750 every 48 hours - Daily weights, 2 g sodium restrictions - Continue cardiac monitoring - Symbicort 160 BID (4) Diastolic CHF Current Visit: No Status: Acute Assessment and plan: Patient demonstrates volume overload with auscultation demonstrating diffuse rhonchi, JVD and a BNP of 456 Plan: - 40 mg IV Lasix daily - Fluid restrictions, sodium restrictions and daily weights as discussed above - Wean oxygen as tolerated, monitor rate and rhythm - Continue Imdur Qualifiers: Congestive heart failure chronicity: acute on chronic Qualified Code(s): I50.33 - Acute on chronic diastolic (congestive) heart failure (5) Hyperglycemia Current Visit: Yes Status: Acute Assessment and plan: No documentation of previous diabetes. - Continue low-dose sliding scale with before meals and at bedtime glucose checks (6) DVT prophylaxis Current Visit: No Status: Acute Assessment and plan: Subcutaneous heparin Code(s): [id number] - - Subjective Interval history: Mrs. Evans has been seen and evaluated at bedside. She is awake alert interactive with no improvement in respiratory status. She does describe some shortness of breath but denies any new events or changes overnight. She is eating and drinking and having bowel movements. - Constitutional Vitals: Temp Pulse Resp BP Pulse Ox 98.1 F 104 16 163/99 93 06/10/17 12:00 06/10/17 12:00 06/10/17 12:00 06/10/17 12:00 06/10/17 12:00 General appearance: Present: A&O X 3, pleasant, no acute distress, answers questions appropriately Exam: General: Patient alert, awake, oriented 3, interactive, no acute distress HEENT: Normocephalic, atraumatic, pupils equal reactive to light, nasal cavity patent and open septum median position, oral mucosa moist, uvula midline, neck supple trachea midline no palpable lymphadenopathy, no thyromegaly. Chest: Symmetric bilateral correlating with respiratory effort, effort nonlabored. Cardiac: Irregularly irregular heart rate and rhythm. no bruits appreciated bilateral carotids, Radial pulses 2+ bilateral, posterior tibial and dorsal pedal pulses 2+ bilateral. Respiratory: Diminished inspiratory and expiratory breath sounds, apical ronchi Abdomen: Soft, nontender, positive bowel sounds, no palpable masses appreciated on examination Extremities: Symmetric bilateral, bilateral lower extremities without erythema or edema patient moving all 4 extremities spontaneously. Neurologic: No focal deficits appreciated on examination. Face symmetric, muscle strength symmetric bilateral upper and lower extremities. Internal Medicine: Result - Labs CBC & Chem 7: 06/10/17 03:15 06/10/17 03:15 Labs: Short CBC 06/10/17 Range/Units 03:15 WBC 9.1 (4.3-11.1) K/mcL Hgb 11.7 (11.5-15.4) g/dL Hct 37.9 (35.3-44.9) % Plt Count 405 H (140-400) K/mcL Neutrophils # 7.0 (1.6-8.9) K/mcL BMP 06/10/17 03:15 Sodium 137 Potassium 4.3 Chloride 97 L Carbon Dioxide 32 H BUN 48 H Creatinine 1.03 Glucose 161 H Calcium 9.2 Liver Function 06/10/17 Range/Units 03:15 Total Bilirubin 0.3 (0.3-1.0) mg/dL AST 22 (13-39) Units/L ALT 14 (7-52) Units/L Alkaline Phosphatase 58 (34-104) Units/L Albumin 2.9 L (3.5-5.7) g/dL - ABG Interpretation ABG results: PT/INR, D-dimer PT 13.5 Seconds (9.4-12.1) H 06/07/17 05:30 - Impressions Impressions Chest X-Ray 06/10/17 11:27 IMPRESSION: 1. Lateral left basilar atelectasis, infiltrate or scar. 2. Cardiomegaly. 3. Calcific atherosclerosis aorta. D/ / Haroldo Mcdonough / Haroldo Mcdonough Interpreting Provider: Haroldo Mcdonough - VTE Documentation of Mechanical Device: Graduated compression elastic hosiery Consult Discharge Plan - Plan Referrals: Tamiko Keys CNP [Primary Care Provider] - 06/15/17 10:35 am Adis Rey MD [Partnered Physician] - 06/15/17 1:45 pm Aubrey Torres MD [Partnered Physician] - 06/24/17 11:30 am <Carlos Wills - Last Filed: 06/10/17 19:57> Date of Encounter: 06/10/17 - Assessment and plan (1) Acute and chronic respiratory failure with hypoxia Current Visit: Yes Status: Acute (2) Atrial fibrillation Current Visit: No Status: Chronic Qualifiers: Atrial fibrillation type: paroxysmal Qualified Code(s): I48.0 - Paroxysmal atrial fibrillation (3) CHF exacerbation Current Visit: No Status: Acute Qualifiers: Congestive heart failure type: diastolic Qualified Code(s): I50.33 - Acute on chronic diastolic (congestive) heart failure (4) CKD (chronic kidney disease) Current Visit: No Status: Chronic Qualifiers: Chronic kidney disease stage: stage 3 (moderate) Qualified Code(s): N18.3 - Chronic kidney disease, stage 3 (moderate) (5) Hypertension Current Visit: No Status: Chronic Qualifiers: Hypertension type: essential hypertension Qualified Code(s): I10 - Essential (primary) hypertension - Constitutional Vitals: Temp Pulse Resp BP Pulse Ox 98.6 F 102 16 107/87 92 06/10/17 19:41 06/10/17 19:41 06/10/17 19:41 06/10/17 19:41 06/10/17 19:41 Internal Medicine: Result - Labs CBC & Chem 7: 06/10/17 03:15 06/10/17 03:15 Labs: Short CBC 06/10/17 Range/Units 03:15 WBC 9.1 (4.3-11.1) K/mcL Hgb 11.7 (11.5-15.4) g/dL Hct 37.9 (35.3-44.9) % Plt Count 405 H (140-400) K/mcL Neutrophils # 7.0 (1.6-8.9) K/mcL BMP 06/10/17 03:15 Sodium 137 Potassium 4.3 Chloride 97 L Carbon Dioxide 32 H BUN 48 H Creatinine 1.03 Glucose 161 H Calcium 9.2 Liver Function 06/10/17 Range/Units 03:15 Total Bilirubin 0.3 (0.3-1.0) mg/dL AST 22 (13-39) Units/L ALT 14 (7-52) Units/L Alkaline Phosphatase 58 (34-104) Units/L Albumin 2.9 L (3.5-5.7) g/dL - ABG Interpretation ABG results: PT/INR, D-dimer PT 13.5 Seconds (9.4-12.1) H 06/07/17 05:30 - Impressions Impressions Chest X-Ray 06/10/17 11:27 IMPRESSION: 1. Lateral left basilar atelectasis, infiltrate or scar. 2. Cardiomegaly. 3. Calcific atherosclerosis aorta. D/ / Haroldo Mcdonough / Haroldo Mcdonough Interpreting Provider: Haroldo Mcdonough - Attending Attestation I examined this patient and my medical decision-making was reviewed with the Resident Physician on 06/10/17. I agree with the documented findings, disposition and treatment plan as described except to the extent set forth below. Ms Evans is currently admitted for resp failure and atrial fibrillation. She remains moderate to high risk due to potential for worsening clinical status. Ms Evans still has a lot of chest congestion. No fever. Heart rate rapid in AM. Coughing but can't get up sputum. Exam alert. Comfortable Mucus membranes dry Heart tachy and irreg Lungs with rhonchi upper airway I/P 1. hypoxia 2 A fib Speech eval -? aspiration Add mucinex and mucomyst Further diagnoses and plan as above.
[2017-06-10] MEDS ORDERED: levoFLOXacin 750 MG TABLET PO SCH (18:00)
[2017-06-10] MEDS: *HR* Acetylcysteine 20% 600 MG/3 ML ORAL SYRINGE PO SCH (21:30)
[2017-06-11] MEDS: Ipratropium/Albuterol Neb 3 ML IH SCH ×6 (03:47→23:05)
[2017-06-11] MEDS: *HR* Heparin 5,000 UNIT/ML VIAL SQ SCH ×2 (06:25→17:34)
[2017-06-11] MEDS: *HR* OxyCODONE/APAP 5/325 TABLET PO PRN ×3 (06:25→21:08)
[2017-06-11] MEDS: Budesonide/Formoterol 160/4.5 MDI IH SCH ×2 (07:54→20:15)
[2017-06-11] MEDS: Insulin LISPRO 300 UNITS/3 ML VIAL SQ SCH ×4 (10:54→21:09)
[2017-06-11] MEDS: Isosorbide MONOnitrate (24 HR) 60 MG TAB.ER.24H PO SCH (10:56)
[2017-06-11] MEDS: predniSONE 20 MG TABLET PO SCH (10:56)
[2017-06-11] MEDS: Metoprolol XL (24 HR) Succ 50 MG TAB.ER.24H PO SCH ×2 (10:56→21:07)
[2017-06-11] MEDS: Aspirin Enteric Coated 81 MG Tablet PO SCH (10:56)
[2017-06-11] MEDS: *HR* Acetylcysteine 20% 600 MG/3 ML ORAL SYRINGE PO SCH ×2 (10:56→21:08)
[2017-06-11] MEDS: FLUoxetine 20 MG CAPSULE PO SCH (10:56)
[2017-06-11] MEDS: Diltiazem CD (24hr) 180 MG CAPSULE PO SCH (10:57)
[2017-06-11] MEDS: Furosemide 40 MG/4 ML VIAL IVP SCH (10:57)
[2017-06-11] MEDS: Furosemide 40 MG TABLET PO SCH ×2 (13:24→17:35)
--- NOTE | 2017-06-11 15:41 | Internal Med Progress Note ---
<Raza Garcia - Last Filed: 06/11/17 15:38> Date of Encounter: 06/11/17 Time of Encounter: 08:00 - Assessment and plan (1) Acute and chronic respiratory failure with hypoxia Current Visit: Yes Status: Acute Assessment and plan: Acute on chronic hypoxic respiratory failure secondary to acute COPD and CHF exacerbation. - Continue to wean back to patient's baseline of 3 L nasal cannula oxygen - 40 mg Lasix by mouth twice a day - 2 L fluid restrictions - 40 mg by mouth prednisone (day 4 out of 5) - Daily weights, 2 g sodium restrictions - Continue cardiac monitoring - Symbicort 160 BID (2) Atrial fibrillation with rapid ventricular response Current Visit: Yes Status: Acute Assessment and plan: Secondary to COPD exacerbation and diastolic heart failure exacerbation. Currently uncontrolled, difficulty likely secondary to hypoxia, COPD exacerbation and vascular overload. Plan: - Cardizem 360 CD by mouth every morning - Changed to metoprolol succinate 100 mg by mouth twice a day - No improvement in rate control. We will consult cardiology to assist with rate control. 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 (3) CKD (chronic kidney disease) Current Visit: No Status: Chronic Assessment and plan: Stable chronic kidney disease stage III - We will continue by mouth Lasix for treatment of CHF exacerbation - Avoid nephrotoxic medications and renally dose antibiotics Qualifiers: Chronic kidney disease stage: stage 3 (moderate) Qualified Code(s): N18.3 - Chronic kidney disease, stage 3 (moderate) (4) Diastolic CHF Current Visit: No Status: Acute Assessment and plan: Patient demonstrates volume overload with auscultation demonstrating diffuse rhonchi, JVD and a BNP of 456 Plan: - 40 mg by mouth Lasix twice a day - Fluid restrictions, sodium restrictions and daily weights as discussed above - Wean oxygen as tolerated, monitor rate and rhythm - Continue Imdur Qualifiers: Congestive heart failure chronicity: acute on chronic Qualified Code(s): I50.33 - Acute on chronic diastolic (congestive) heart failure (5) Hyperglycemia Current Visit: Yes Status: Acute Assessment and plan: No documentation of previous diabetes. - Continue low-dose sliding scale with before meals and at bedtime glucose checks (6) DVT prophylaxis Current Visit: No Status: Acute Assessment and plan: Subcutaneous heparin Code(s): [id number] - - Subjective Interval history: Mrs. Evans has been seen and evaluated at bedside. She is awake alert interactive and feels that her respiratory status has been stable. She had a little bit of difficulty swallowing pills tries so with applesauce. Denies any other current problems. She is looking forward to discharge. - Constitutional Vitals: Temp Pulse Resp BP Pulse Ox 97.9 F 95 14 113/86 97 06/11/17 14:43 06/11/17 14:43 06/11/17 14:43 06/11/17 14:43 06/11/17 14:43 General appearance: Present: A&O X 3, pleasant, no acute distress, answers questions appropriately Exam: General: Patient alert, awake, oriented 3, interactive, no acute distress HEENT: Normocephalic, atraumatic, pupils equal reactive to light, nasal cavity patent and open septum median position, oral mucosa moist, uvula midline, neck supple trachea midline no palpable lymphadenopathy, no thyromegaly. Chest: Symmetric bilateral correlating with respiratory effort, effort nonlabored. Cardiac: Irregularly irregular heart rate and rhythm. no bruits appreciated bilateral carotids, Radial pulses 2+ bilateral, posterior tibial and dorsal pedal pulses 2+ bilateral. Respiratory: Diminished inspiratory and expiratory breath sounds Abdomen: Soft, nontender, positive bowel sounds, no palpable masses appreciated on examination Extremities: Symmetric bilateral, bilateral lower extremities without erythema or edema patient moving all 4 extremities spontaneously. Neurologic: No focal deficits appreciated on examination. Face symmetric, muscle strength symmetric bilateral upper and lower extremities. Internal Medicine: Result - Labs CBC & Chem 7: 06/10/17 03:15 06/10/17 03:15 - ABG Interpretation ABG results: PT/INR, D-dimer PT 13.5 Seconds (9.4-12.1) H 06/07/17 05:30 - VTE Documentation of Mechanical Device: Graduated compression elastic hosiery Consult Discharge Plan - Plan Referrals: Tamiko Keys CNP [Primary Care Provider] - 06/15/17 10:35 am Adis Rey MD [Partnered Physician] - 06/15/17 1:45 pm Aubrey Torres MD [Partnered Physician] - 06/24/17 11:30 am <Carlos Wills - Last Filed: 06/11/17 18:42> Date of Encounter: 06/11/17 - Assessment and plan (1) Acute and chronic respiratory failure with hypoxia Current Visit: Yes Status: Acute (2) Atrial fibrillation Current Visit: No Status: Chronic Qualifiers: Atrial fibrillation type: paroxysmal Qualified Code(s): I48.0 - Paroxysmal atrial fibrillation (3) CHF exacerbation Current Visit: No Status: Acute Qualifiers: Congestive heart failure type: diastolic Qualified Code(s): I50.33 - Acute on chronic diastolic (congestive) heart failure (4) CKD (chronic kidney disease) Current Visit: No Status: Chronic Qualifiers: Chronic kidney disease stage: stage 3 (moderate) Qualified Code(s): N18.3 - Chronic kidney disease, stage 3 (moderate) (5) Hypertension Current Visit: No Status: Chronic Qualifiers: Hypertension type: essential hypertension Qualified Code(s): I10 - Essential (primary) hypertension - Constitutional Vitals: Temp Pulse Resp BP Pulse Ox 97.9 F 95 16 113/86 97 06/11/17 14:43 06/11/17 14:43 06/11/17 15:58 06/11/17 14:43 06/11/17 15:58 Internal Medicine: Result - Labs CBC & Chem 7: 06/10/17 03:15 06/10/17 03:15 - ABG Interpretation ABG results: PT/INR, D-dimer PT 13.5 Seconds (9.4-12.1) H 06/07/17 05:30 - Attending Attestation I examined this patient and my medical decision-making was reviewed with the Resident Physician on 06/11/17. I agree with the documented findings, disposition and treatment plan as described except to the extent set forth below. Ms Evans is currently admitted for rapid a fib and hypoxic resp failure. She remains moderate to high risk due to potential for worsening clinical status. Ms Evans is still having tachycardia and chest congestion. No fever. Eating OK - no swallow issues. Exam Alert. Comfortable Mucus membranes dry Heart irreg and tachy Lungs with rhonchi Abd soft I/P 1. Rapid a fib 2. Resp failure CTA chest today Further diagnoses and plan as above.
[2017-06-12] MEDS: *HR* LORazepam 0.5 MG TABLET PO PRN (01:36)
[2017-06-12] MEDS: Ipratropium/Albuterol Neb 3 ML IH SCH ×6 (03:53→23:02)
[2017-06-12 04:42] LABS: Basophils % 0.3 %; Hematocrit 35.4 % (35.3-44.9); Hemoglobin 11.2 g/dL (11.5-15.4); Immature Granulocytes % 2.2 % (0-4); Lymphocytes # 1.1 K/mcL (0.6-4.6); Lymphocytes % 8.9 %; Mean Corpuscular HGB Conc 31.6 g/dL (31.6-35.5); Mean Corpuscular Hemoglobin 28.9 pg (28.0-33.3); Mean Corpuscular Volume 91.2 fL (83.0-100.0); Mean Platelet Volume 10.2 fL (9.4-12.4); Monocytes # 0.8 K/mcL (0.0-1.3); Monocytes % 6.5 %; Neutrophils # 10.2 K/mcL (1.6-8.9); Platelet Count 335 K/mcL (140-400); Red Blood Count 3.88 M/mcL (3.82-4.97); Red Cell Distribution Width 16.3 % (11.5-14.5); Segmented Neutrophils % 82.1 %
[2017-06-12 04:55] LABS: Alanine Aminotransferase 14 Units/L (7-52); Alkaline Phosphatase 54 Units/L (34-104); Aspartate Amino Transferase 13 Units/L (13-39); BUN/Creatinine Ratio 35 (6-26); Bilirubin,Total 0.4 mg/dL (0.3-1.0); Blood Urea Nitrogen 33 mg/dL (8-23); Calcium 8.8 mg/dL (8.6-10.3); Carbon Dioxide 34 mEq/L (23-29); Chloride 91 mEq/L (98-107); Globulin 2.9 g/dL (2.4-3.5); Glucose 134 mg/dL (70-105); Osmolality,Calculated 287 (280-300); Sodium 134 mEq/L (136-145); Total Protein 5.9 g/dL (6.4-8.9); eGFR For African Americans > 60 (> 60); eGFR For Non-African Americans 56 (> 60)
[2017-06-12] MEDS: *HR* Heparin 5,000 UNIT/ML VIAL SQ SCH ×2 (05:47→18:02)
[2017-06-12] MEDS ORDERED: Potassium Chloride 40 MEQ, Lidocaine 1% 2 ML in D5% in Water 500 ML IVPB ONE (07:18)
--- NOTE | 2017-06-12 07:19 | Cardiology Consult Note ---
<Tomy Duncan - Last Filed: 06/12/17 11:00> Date of Encounter: 06/12/17 Time of Encounter: 07:15 Assessment and Plan (1) Acute and chronic respiratory failure with hypoxia Current Visit: Yes Status: Acute Per Cardiology: Acute on Chronic COPD exac and CHF-- BNP only in 400's. Has moderate PHTN. Management per primary service. On treatments and steroids. On lasix. Net I&O - 1930ml. (2) Atrial fibrillation with rapid ventricular response Current Visit: Yes Status: Acute Per Cardiology: Known history of chronic atrial fibrillation. Tele shows avg HR past 12 hrs 118 , currently afib 140s to 150s. Systolic blood pressures in the 90s to 100s. CT - PE. On Toprol XL 100mg PO BID and Cardizem CD 360mg PO daily. TSH ok. Mag stable 06/07/16 at 2.2, with afib and on lasix, will check mag this am = 1.7. Discussed and reviewed with Dr. Nelson, will transfer to 2 N to proceed with amiodarone bolus and infusion. Suspect A. fib with RVR driven by underlying respiratory condition. Anticipate will be difficult to rate control. Will check echo when HR controlled-- last echo 10/2016 with preserved EF, mild MR, moderate PHTN. Regarding long-term anticoagulation, history of TIA and CVA, however unfortunately not anticoagulated other than aspirin due to history of bleeding. Currently on aspirin. Patient desire for code status to be DNR/DNI-- addressed by primary team. (3) History of coronary artery disease Current Visit: No Status: Chronic Per Cardiology: Hx of CAD. Last [facility] 10/2015-- Patent ESTEVEZ to LAD. Occluded SVG to OM and Diagonal. Severe diffuse circumflex artery stenosis and in-stent restenosis ( small diseased distal vessel). On asa, statin, BB. Stress test October 2016. Continue to monitor. On aspirin, statin, beta miroslava, long-acting nitrate. CP this am with food and afib RVR. Will check trop. (4) Hypokalemia Current Visit: No Status: Acute Per Cardiology: On Lasix 40mg PO BID. On replacement, but K+ 3.0 today, will give rider. BNP only 420. Discussion w patient/family: The assessment and plan as outlined above was discussed with the patient and/or family members who expressed understanding and agreement. All questions were answered. Thank you for involving us in the care of your patient. Please call with any questions. History of Present Illness Consult date: 06/12/17 Requesting physician: Raza Garcia Consult reason: Elevated HR Chief complaint: SOB History of present illness: Ms. Evans is a 86 year old female well known to cardiology with a relevant past medical history of CAD with CABG, GERD, hypertension, TIA/CVA, atrial fibrillation, COPD. Last seen by Dr. Torres October 2016. Cardiology consult for A. fib with RVR. Patient seen today with at bedside. They report multiple hospitalizations recently and currently no longer residing at home and a usp. She does report increased overall short of breath worse today. Does report some midsternal chest pressure this morning was eating breakfast about 5 out of 10. She does report palpitations and fluttering sensations. Denies any dizziness or lightheadedness. He reports nonproductive cough. Reports overall increased swelling to lower extremities has worsened. She denies any fever, chills, nausea, vomiting, diarrhea. Patient and confirm this morning her desire to be DNR/DNI/comfort care rest. Past Med Surg Social Fam HX - Past Medical History Attestation: Yes The following information was validated with the patient. Source: patient, old records reviewed, obtained from family Medical history: arthritis, atrial fibrillation, CHF, COPD, coronary artery disease, CVA, GERD, hyperlipidemia, hypertension, osteoporosis Psychiatric history: anxiety, depression - Past Surgical History Surgical History: angioplasty/stent, appendectomy, carotid endarterectomy, coronary bypass (CABG), hysterectomy, orthopedic, other, other, LE stent (s), LE vascular intervention - Social History Smoking Status: Former smoker Smokeless Tobacco Status: No Alcohol use: none Drug use: none - Family History Mother Living Status: Hx Family Cardiac Disorders: Yes (CAD) Father Living Status: Hx Family Cardiac Disorders: Yes (CAD) Hx Family Neurologic Disorders: Yes (epilepsy) Sister Living Status: Unknown Hx Family Cardiac Disorders: Yes (CAD) Hx Family Cancer: No Hx Family Neurologic Disorders: Yes (CVA) Medications and Allergies Aspirin [Adult Low Dose Aspirin EC] 81 mg PO QAM 12/29/14 [History] Docusate [Colace] 100 mg PO BID 12/29/14 [History] FLUoxetine HCl [Prozac] 20 mg PO QAM 12/29/14 [History] Nitroglycerin [Nitrostat] 0.4 mg SL Q5M PRN 12/29/14 [History] Simvastatin [Zocor] 20 mg PO HS 12/29/14 [History] Pantoprazole Sodium [Protonix] 40 mg PO QAM 06/10/15 [History] Albuterol Sulfate [Albuterol Inhaler] 2 puff IH Q4HR PRN 04/26/17 [History] Budesonide/Formoterol 160/4.5 [Symbicort 160/4.5] 2 puff IH QAM 05/19/17 [ History] Diltiazem HCl [Diltiazem 24Hr Cd] 360 mg PO QAM 05/19/17 [History] Isosorbide MONOnitrate (24 HR) [Imdur] 60 mg PO QAM 05/19/17 [History] Pramipexole Di-HCl [Pramipexole Dihydrochloride] 0.5 mg PO HS 05/19/17 [History] hydrOXYzine HCl [Hydroxyzine HCl] 25 mg PO HS PRN 05/19/17 [History] metOLazone [Zaroxolyn] 5 mg PO QAM 05/19/17 [History] Furosemide [Lasix] 40 mg PO BID 06/06/17 [History] Ipratropium/Albuterol Neb [Duoneb] 3 ml IH 0800,2000 06/06/17 [History] Ipratropium/Albuterol Neb [Duoneb] 3 ml IH Q4H PRN 06/06/17 [History] LORazepam [Ativan] 0.5 mg PO BID PRN 06/06/17 [History] Lactose-Reduced Food [Ensure Liquid] 1 bottle PO TIDWM 06/06/17 [History] Metoprolol Tartrate [Lopressor] 125 mg PO BID 06/06/17 [History] Oxycodone HCl/Acetaminophen [Percocet 5-325 mg Tablet] 1 each PO Q8H PRN [History] Oxygen 3 l NS CONT 06/06/17 [History] Potassium Chloride 40 meq PO QAM 06/06/17 [History] 3 Allergy/AdvReac Type Severity Reaction Status Date / Time Sulfa (Sulfonamide AdvReac Nausea Verified 10/20/16 14:06 Antibiotics) All Systems Review: A 10-system review of systems was performed and is negative for pertinent findings except as documented above in the HPI. - Constitutional Constitutional: fatigue, weakness - Cardiovascular Cardiovascular: as per HPI, chest pain at rest, dyspnea at rest, dyspnea on exertion, irregular heart rhythm, leg edema, palpitations, rapid heart rate - Respiratory Respiratory: cough, dyspnea Physical Examination Vital Signs, Last 4 Hours Temp Pulse Resp BP Pulse Ox 06/12/17 06:29 97.8 F 98 14 97/85 94 06/12/17 04:15 98.9 F 126 16 117/80 94 06/12/17 03:53 18 97 General: Conversant, Other (Pale in appearance, appears acutely ill) HEENT: Atraumatic, Normocephaly, Mucus Membranes Moist Neck: No JVD, Normal carotid pulses Cardiac: No Murmur, Other (Irregularly irregular, heart rate noted to be A. fib in the 140s to 150s on telemetry) Lungs: Other (Conversational dyspnea noted, scattered rhonchi throughout, mild shortness of breath at rest) Neuro: Alert and responsive, No focal deficits noted Abdomen: Soft, Non-Tender Skin: No rashes noted on visualized skin Musculoskeletal: No Chest Wall Tenderness Extremities: No Clubbing, No Cyanosis, Normal Pulses, Other (+1 nonpitting bilateral LE-- has bilateral knee-high FOSTER hose) Results 06/12/17 03:44 06/12/17 03:44 Lab Results Laboratory Tests 04/26/17 06/07/17 06/10/17 16:37 05:30 15:44 Potassium Creatinine BUN/Creatinine Ratio Magnesium 2.2 AST ALT B-Natriuretic Peptide 420 H TSH 3.080 06/12/17 03:44 Potassium 3.0 L Creatinine 0.94 BUN/Creatinine Ratio 35 H Magnesium AST 13 ALT 14 B-Natriuretic Peptide TSH ITS Impressions Chest X-Ray 06/06/17 10:46 IMPRESSION: 1. Stable appearance of the chest without acute cardiopulmonary process identified. 2. Stable cardiomegaly. 3. Mild diffuse increased interstitial markings, stable from the previous exam and likely chronic. D/ 06/06/2017 12:10:25 Maximus Hickman MD / earkannan Interpreting Provider: Maximus Hickman MD Chest X-Ray 06/10/17 11:27 IMPRESSION: 1. Lateral left basilar atelectasis, infiltrate or scar. 2. Cardiomegaly. 3. Calcific atherosclerosis aorta. D/ / Haroldo Mcdonough / Haroldo Mcdonough Interpreting Provider: Haroldo Mcdonough Chest CTA 06/11/17 16:33 IMPRESSION: No evidence of pulmonary embolism or acute pulmonary abnormality. Moderate cardiomegaly and coronary artery disease. Other incidental findings as noted above including 1 cm spiculated nodule right apex. Recommend follow-up in 3 months as below. . RECOMMENDATIONS: Fleischner Society guidelines for follow-up and management of incidentally detected pulmonary nodules: Single Solid Nodule: Nodule size less than 6 mm In a low-risk patient, no routine follow-up. In a high-risk patient, optional CT at 12 months. Nodule size equals 6-8 mm In a low-risk patient, CT at 6-12 months, then consider CT at 18-24 months. In a high-risk patient, CT at 6-12 months, then CT at 18-24 months. Nodule size greater than 8 mm In a low-risk patient, consider CT, PET/CT, or tissue sampling at 3 months. In a high-risk patient, consider CT, PET/CT, or tissue sampling at 3 months. Multiple Solid Nodules: Nodule size less than 6 mm In a low-risk patient, no routine follow-up. In a high-risk patient, optional CT at 12 months. Nodule size equals 6-8 mm In a low-risk patient, CT at 3-6 months, then consider CT at 18-24 months. In a high-risk patient, CT at 3-6 months, then CT at 18-24 months. Nodule size greater than 8 mm In a low-risk patient, CT at 3-6 months, then consider CT at 18-24 months. In a high-risk patient, CT at 3-6 months, then CT at 18-24 months. - Low risk patients include individuals with minimal or absent history of smoking and other known risk factors. - High risk patients include individuals with a history or smoking or known risk factors. Radiology 2017 http://pubs.rsna.org/doi/full/10.1148/radiol.[email or web address] D/ / Luan Ingram MD / Luan Ingram MD Interpreting Provider: Luan Ingram MD Intake & Output 06/09/17 06/10/17 06/11/17 06/12/17 23:59 23:59 23:59 23:59 Intake Total 1280 / 1280 630 / 630 540 / 540 Output Total 700 / 700 1500 / 1500 800 / 800 1350 / 1350 Balance 580 / 580 -870 / -870 -260 / -260 -1350 / -1350 Weight 62 kg 61.4 kg 62.9 kg Active Medications Acetylcysteine (Acetylcysteine 20%) 600 mg PO BID [facility] Stop: 12/10/17 21:01 Last Admin: 06/11/17 21:08 Dose: 600 mg Albuterol Sulfate (Albuterol Inhaler) 2 puff IH Q4HR PRN PRN Reason: Shortness Of Breath Stop: 12/06/17 15:21 Albuterol/Ipratropium (Duoneb) 3 ml IH [id number] [facility] Stop: 12/06/17 20:01 Last Admin: 06/12/17 03:53 Dose: 3 ml Aspirin (Aspirin Ec) 81 mg PO QAM [facility] Stop: 12/07/17 09:01 Last Admin: 06/11/17 10:56 Dose: 81 mg Budesonide/Formoterol Fumarate (Symbicort) 2 puff IH BIDRESP [facility] PRN Reason: Protocol Stop: 12/09/17 22:01 Last Admin: 06/11/17 20:15 Dose: 2 puff Dextrose/Water (Dextrose 50% (Syg)) 25 ml IVP AD PRN PRN Reason: Hypoglycemia Stop: 12/08/17 17:42 Diltiazem HCl (Cardizem Cd) 360 mg PO QAM [facility] Stop: 12/08/17 16:01 Last Admin: 06/11/17 10:57 Dose: 360 mg Docusate Sodium (Colace) 100 mg PO BID [facility] PRN Reason: Protocol Stop: 12/06/17 21:01 Last Admin: 06/11/17 21:07 Dose: 100 mg Fluoxetine HCl (Prozac) 20 mg PO QAM [facility] PRN Reason: Protocol Stop: 12/07/17 09:01 Last Admin: 06/11/17 10:56 Dose: 20 mg Furosemide (Lasix) 40 mg PO BIDDIURETIC [facility] Stop: 12/11/17 11:31 Last Admin: 06/11/17 17:35 Dose: 40 mg Glucagon (Glucagen) 1 mg IM ONCE PRN PRN Reason: Hypoglycemia Stop: 12/08/17 17:42 Glucose (Gluctose) 15 gm PO ONCE PRN PRN Reason: Hypoglycemia Stop: 12/08/17 17:42 Glucose (Gluctose) 30 gm PO ONCE PRN PRN Reason: Hypoglycemia Stop: 12/08/17 17:42 Heparin Sodium (Porcine) (Heparin) 5,000 unit SQ Q12HCO [facility] Stop: 12/08/17 18:01 Last Admin: 06/12/17 05:47 Dose: 5,000 unit Hydroxyzine Pamoate (Hydroxyzine Pamoate) 25 mg PO HS PRN PRN Reason: Sleep Last Admin: 06/07/17 22:41 Dose: 25 mg Dextrose (Dextrose 5%) 1,000 mls @ 100 mls/hr IVC .Q10H PRN PRN Reason: HYPOGLYCEMIA Stop: 12/08/17 17:42 Potassium Chloride 40 meq/ (Lidocaine 2 ml/ Dextrose) 522 mls @ 130.5 mls/hr IVPB ONCE ONE Stop: 06/12/17 11:17 Insulin Human Lispro (Humalog) 0 units SQ HS [facility] PRN Reason: Protocol Stop: 12/08/17 21:01 Last Admin: 06/11/17 21:09 Dose: 6 units Insulin Human Lispro (Humalog) 0 units SQ TIDAC [facility] PRN Reason: Protocol Stop: 12/09/17 07:31 Last Admin: 06/11/17 17:35 Dose: 4 units Isosorbide Mononitrate (Imdur) 60 mg PO DAILY [facility] Stop: 12/11/17 09:01 Last Admin: 06/11/17 10:56 Dose: 60 mg Lorazepam (Ativan) 0.5 mg PO BID PRN PRN Reason: Anxiety Stop: 12/06/17 15:21 Last Admin: 06/12/17 01:36 Dose: 0.5 mg Metoprolol Succinate (Toprol Xl) 100 mg PO BID [facility] Stop: 12/11/17 09:01 Last Admin: 06/11/17 21:07 Dose: 100 mg Naloxone HCl (Narcan) 0.4 mg IVP Q2MIN PRN PRN Reason: Opioid Reversal Stop: 12/06/17 15:17 Nitroglycerin (Nitroglycerin) 0.4 mg SL Q5M PRN PRN Reason: Chest Pain Stop: 12/06/17 15:21 Omeprazole (Prilosec) 40 mg PO 0630 [facility] Stop: 12/07/17 06:31 Last Admin: 06/12/17 05:47 Dose: 40 mg Oxycodone/Acetaminophen (Percocet 5/325) 1 each PO Q6H PRN PRN Reason: Pain Stop: 12/06/17 15:21 Last Admin: 06/11/17 21:08 Dose: 1 each Potassium Chloride (Potassium Chloride) 40 meq PO QAM [facility] Stop: 12/07/17 09:01 Last Admin: 06/11/17 10:55 Dose: 40 meq Pramipexole Dihydrochloride (Mirapex) 0.5 mg PO HS [facility] Stop: 12/06/17 21:01 Last Admin: 06/11/17 21:08 Dose: 0.5 mg Prednisone (Prednisone) 40 mg PO DAILY [facility] Stop: 12/08/17 10:31 Last Admin: 06/11/17 10:56 Dose: 40 mg Simvastatin (Zocor) 20 mg PO HS [facility] PRN Reason: Protocol Stop: 12/06/17 21:01 Last Admin: 06/11/17 21:08 Dose: 20 mg ECHO 10/2016: Impressions: LVEF 50%. Normal LV chamber size, wall thickness and low normal function. Atypical septal motion consistent with post-operative status. Indeterminate diastolic function. Normal right ventricular size with mildly reduced function. Mild mitral regurgitation. Moderate pulmonary hypertension. Estimated RVSP is 53 mmHg. Left Ventricular Wall Motion: Rest Echo Findings All wall segments showed normal motion. [facility] 10/2015: Impressions: Patent ESTEVEZ to LAD. Occluded SVG to OM and Diagonal. Severe diffuse circumflex artery stenosis and in-stent restenosis (small \T\ diseased distal vessel). Mildly elevated LVEDp. Lesion Findings/Interventions * Left Main Coronary Artery The LMCA has mild disease. * Left Anterior Descending There is a 100% stenosis in the Ostial LAD. * Circumflex There is a 80% stenosis in the Proximal Circumflex. There is a 60%-70% in stent restenosis in the Mid Circumflex. There is a 90% stenosis in the Distal Circumflex. * Right Coronary Artery. The Right Coronary Artery is very small in size. Additional Findings: Grafts * The left internal mammary graft to the Mid LAD is patent. RAMILA flow is III. * The saphenous vein graft to the 1st Marginal is occluded. * The saphenous vein graft to the 1st Diagonal is occluded. Incidental: Right SFA * 100% stenosis in the superficial femoral. Laboratory Tests 06/12/17 03:44 Magnesium 1.7 - Imaging and Cardiology Stress Test: report reviewed, other (10/2016) Echo: report reviewed Cardiac cath: report reviewed - EKG Interpretation EKG results cardiology: personally reviewed (A. fib with RVR in the 140s), other (Telemetry reviewed with average heart rate the past 12 hours noted to be 118, A. fib, however currently A. fib with RVR in the 140s to 150s upon exam) Consult Discharge Plan - Plan Referrals: Tamiko Keys CNP [Primary Care Provider] - 06/15/17 10:35 am Adis Rey MD [Partnered Physician] - 06/15/17 1:45 pm Aubrey Torres MD [Partnered Physician] - 06/24/17 11:30 am <Kandice Nelson - Last Filed: 06/12/17 13:17> Date of Encounter: 06/12/17 - Attending Attestation I examined this patient and my medical decision-making was reviewed with the [employer]. I agree with the documented findings, disposition and treatment plan as described. Impression: 86F presenting with worsening SOB and found to be in AFIB RVR with known Afib. CTA did not demonstrate PE but showed left lower lobe airspace disease. She has been afebrile without leukocytosis. Primary team managing. Plan: Patient transferred to for amiodarone gtt - heart rates already better controlled. Suspect AFIB driven by underlying pulmonary process. Most recent echo demonstrated normal LV EF, mild MR and moderate PHTN. Suspect heart rates will normalize as respiratory status improves. In regards to anticoagulation, patient has not been considered an anticoagulation candidate due to history of bleeding. Continue aspirin. Assessment and Plan Discussion w patient/family: The assessment and plan as outlined above was discussed with the patient and/or family members who expressed understanding and agreement. All questions were answered. Thank you for involving us in the care of your patient. Please call with any questions. History of Present Illness History of present illness: Ms. Evans is a 86 year old female All Systems Review: A 10-system review of systems was performed and is negative for pertinent findings except as documented above in the HPI. Physical Examination Vital Signs, Last 4 Hours Temp Pulse Resp BP Pulse Ox 06/12/17 11:19 129 06/12/17 11:11 97.8 F 135 18 106/59 95 06/12/17 10:41 97.6 F 64 14 80/65 97 Results 06/12/17 03:44 06/12/17 03:44 Lab Results 06/12/17 06/12/17 06/12/17 03:44 03:44 11:14 WBC 12.4 H Hgb 11.2 L Hct 35.4 Plt Count 335 Sodium 134 L Potassium 3.0 L Chloride 91 L Carbon Dioxide 34 H BUN 33 H Creatinine 0.94 Glucose 134 H Calcium 8.8 Magnesium 1.7 Total Bilirubin 0.4 AST 13 ALT 14 Alkaline Phosphatase 54 Troponin I 0.04 H*
[2017-06-12 07:34] LABS: Magnesium 1.7 mg/dL (1.6-2.6)
[2017-06-12] MEDS: Budesonide/Formoterol 160/4.5 MDI IH SCH ×2 (07:44→20:28)
[2017-06-12] MEDS: Insulin LISPRO 300 UNITS/3 ML VIAL SQ SCH ×4 (10:12→23:21)
--- NOTE | 2017-06-12 10:21 | Internal Med Progress Note ---
Date of Encounter: 06/12/17 Time of Encounter: 09:40 - Assessment and plan (1) Acute and chronic respiratory failure with hypoxia Current Visit: Yes Status: Acute Assessment and plan: Acute on chronic hypoxic respiratory failure secondary to acute COPD and CHF exacerbation. - Currently on home level of 3L - Transferred to due to worsening respiratory status and need for IV amiodarone to control heartrate - CTA yesterday negative for PE. ? infiltrate versus atelectasis. Speech eval yesterday - no dysphagia noted then. Will broaden abx today. - ABG consistent with metabolic alkalosis from diuresis (2) Atrial fibrillation Current Visit: No Status: Chronic Assessment and plan: Remains in rapid a fib this AM despite med adjustments. Transferred to and started on amiodarone drip. Not on anticoagulation due to reported history of bleeding. Qualifiers: Atrial fibrillation type: persistent Qualified Code(s): I48.1 - Persistent atrial fibrillation (3) CHF exacerbation Current Visit: No Status: Acute Assessment and plan: Chest remains congested but chest CT not showing significant fluid. ABG consistent with metabolic alkalosis. Will decrease diuresis and hope that rate control will improve situation some. May need small amount of IV fluids (BP on lower side, fatigued). Qualifiers: Congestive heart failure type: diastolic Qualified Code(s): I50.33 - Acute on chronic diastolic (congestive) heart failure (4) CKD (chronic kidney disease) Current Visit: No Status: Chronic Assessment and plan: Stable chronic kidney disease stage III - Avoid nephrotoxic medications and renally dose antibiotics Qualifiers: Chronic kidney disease stage: stage 3 (moderate) Qualified Code(s): N18.3 - Chronic kidney disease, stage 3 (moderate) (5) Hypertension Current Visit: No Status: Chronic Assessment and plan: BP has been on the lower side at this time due to diuresis. Continue to follow. Qualifiers: Hypertension type: essential hypertension Qualified Code(s): I10 - Essential (primary) hypertension (6) Hypokalemia Current Visit: No Status: Acute Assessment and plan: Replete today. - Subjective Interval history: Ms Evans is currently admitted for acute respiratory failure related to CHF, COPD. She continues to have rapid a fib. She remains moderate to high risk due to potential for worsening clinical and respiratory status. Ms Evans is having a lot of respiratory distress this AM. She remains in rapid a fib. Having some chest discomfort especially with coughing. No fever at this time. Feels very tired. No constipation or diarrhea. I discussed DNR status with her and her and she does not aggressive measures including intubation. She is OK with bipap if needed. She is currently on 3 liters (home level). - Constitutional Vitals: Temp Pulse Resp BP Pulse Ox 97.8 F 98 18 97/85 97 06/12/17 06:29 06/12/17 06:29 06/12/17 07:44 06/12/17 06:29 06/12/17 07:44 General appearance: Present: A&O X 3, pleasant, no acute distress, answers questions appropriately - Head Head exam: Present: normocephalic - Eye Eye exam: Present: EOMI, conjuntiva pink - ENT ENT exam: Present: mucous membranes dry - Respiratory Respiratory exam: Present: rales, rhonchi, wheezes Additional comments: Rales and rhonchi bilaterally. Some wheeze on L. - Cardiovascular Cardiovascular exam: Present: irregular rhythm, tachycardia - GI/Abdominal GI/Abdominal exam: Present: soft. Absent: tenderness - Extremities Exam Extremities exam: Present: warm. Absent: tenderness - Neurological Exam Neurological exam: Present: alert, oriented X3, no focal deficits - Skin Skin exam: Present: warm. Absent: rash Internal Medicine: Result - Labs CBC & Chem 7: 06/12/17 03:44 06/12/17 03:44 Labs: Short CBC 06/12/17 Range/Units 03:44 WBC 12.4 H (4.3-11.1) K/mcL Hgb 11.2 L (11.5-15.4) g/dL Hct 35.4 (35.3-44.9) % Plt Count 335 (140-400) K/mcL Neutrophils # 10.2 H (1.6-8.9) K/mcL BMP 06/12/17 03:44 Sodium 134 L Potassium 3.0 L Chloride 91 L Carbon Dioxide 34 H BUN 33 H Creatinine 0.94 Glucose 134 H Calcium 8.8 Liver Function 06/12/17 Range/Units 03:44 Total Bilirubin 0.4 (0.3-1.0) mg/dL AST 13 (13-39) Units/L ALT 14 (7-52) Units/L Alkaline Phosphatase 54 (34-104) Units/L Albumin 3.0 L (3.5-5.7) g/dL - ABG Interpretation ABG results: PT/INR, D-dimer PT 13.5 Seconds (9.4-12.1) H 06/07/17 05:30 - Impressions Impressions Chest CTA 06/11/17 16:33 IMPRESSION: No evidence of pulmonary embolism or acute pulmonary abnormality. Moderate cardiomegaly and coronary artery disease. Other incidental findings as noted above including 1 cm spiculated nodule right apex. Recommend follow-up in 3 months as below. . RECOMMENDATIONS: Fleischner Society guidelines for follow-up and management of incidentally detected pulmonary nodules: Single Solid Nodule: Nodule size less than 6 mm In a low-risk patient, no routine follow-up. In a high-risk patient, optional CT at 12 months. Nodule size equals 6-8 mm In a low-risk patient, CT at 6-12 months, then consider CT at 18-24 months. In a high-risk patient, CT at 6-12 months, then CT at 18-24 months. Nodule size greater than 8 mm In a low-risk patient, consider CT, PET/CT, or tissue sampling at 3 months. In a high-risk patient, consider CT, PET/CT, or tissue sampling at 3 months. Multiple Solid Nodules: Nodule size less than 6 mm In a low-risk patient, no routine follow-up. In a high-risk patient, optional CT at 12 months. Nodule size equals 6-8 mm In a low-risk patient, CT at 3-6 months, then consider CT at 18-24 months. In a high-risk patient, CT at 3-6 months, then CT at 18-24 months. Nodule size greater than 8 mm In a low-risk patient, CT at 3-6 months, then consider CT at 18-24 months. In a high-risk patient, CT at 3-6 months, then CT at 18-24 months. - Low risk patients include individuals with minimal or absent history of smoking and other known risk factors. - High risk patients include individuals with a history or smoking or known risk factors. Radiology 2017 http://pubs.[facility]na.org/doi/full/10.1148/radiol.[email or web address] D/ / Luan Ingram MD / Luan Ingram MD Interpreting Provider: Luan Ingram MD - VTE Documentation of Mechanical Device: Graduated compression elastic hosiery Consult Discharge Plan - Plan Referrals: Tamiko Keys CNP [Primary Care Provider] - 06/15/17 10:35 am Adis Rey MD [Partnered Physician] - 06/15/17 1:45 pm Aubrey Torres MD [Partnered Physician] - 06/24/17 11:30 am
[2017-06-12] MEDS: Furosemide 40 MG TABLET PO SCH (10:37)
[2017-06-12] MEDS: Diltiazem CD (24hr) 180 MG CAPSULE PO SCH (10:42)
[2017-06-12] MEDS: Isosorbide MONOnitrate (24 HR) 60 MG TAB.ER.24H PO SCH (10:42)
[2017-06-12] MEDS: Metoprolol XL (24 HR) Succ 50 MG TAB.ER.24H PO SCH ×2 (10:43→21:09)
[2017-06-12] MEDS ORDERED: Amiodarone Premix 360 MG/200 ML BAG IVC ONE (10:44)
[2017-06-12] MEDS ORDERED: Amiodarone Premix 150 MG/100 ML BAG IVPB ONE (10:44)
[2017-06-12 11:20] LABS: ABG Base Excess 9 mEq/L (-2 to 3); ABG HCO3 32 mEq/L (21-27); ABG Oxygen Saturation 97 % (95-98); ABG PCO2 35 mmHg (35-45); ABG PH 7.57 pH Units (7.32-7.45); ABG PO2 75 mmHg (85-104); ABG TCO2 33 mEq/L (20-26)
[2017-06-12] MEDS: Aspirin Enteric Coated 81 MG Tablet PO SCH (12:14)
[2017-06-12] MEDS: predniSONE 20 MG TABLET PO SCH (12:14)
[2017-06-12] MEDS: FLUoxetine 20 MG CAPSULE PO SCH (12:14)
[2017-06-12] MEDS ORDERED: Fluconazole 100 MG TABLET PO ONE (12:30)
[2017-06-12] MEDS ORDERED: Clotrimazole 1% CRM 15 GM TUBE TP SCH (12:30)
--- NOTE | 2017-06-12 13:05 | Event Note ---
Date of Encounter: 06/12/17 Time of Encounter: 13:00 - Cardiology Event Note HR now 100's 120's on amio, CP resolved, mild trop only 0.04-- suspect demand ischemia. No CR c/s warranted. Echo pending when HR controlled.
[2017-06-12] MEDS: *HR* OxyCODONE/APAP 5/325 TABLET PO PRN (13:12)
[2017-06-12] MEDS ORDERED: Furosemide 20 MG TABLET PO SCH (14:00)
[2017-06-12] MEDS ORDERED: *HR* Dextrose 50 % in Water (Syg) 50 ML SYRINGE IVP PRN (14:28)
[2017-06-12] MEDS ORDERED: Dextrose Gel 15 GM/37.5 ML TUBE PO PRN ×2 (14:28)
[2017-06-12] MEDS ORDERED: Naloxone 0.4 MG/ML INJ IVP PRN (14:28)
[2017-06-12] MEDS ORDERED: Amiodarone Premix 360 MG/200 ML BAG IVC SCH ×2 (14:28→17:00)
[2017-06-12] MEDS ORDERED: D5% in Water 1,000 ML IVC PRN (14:28)
[2017-06-12] MEDS ORDERED: Nitroglycerin 0.4 MG TAB.SUBL SL PRN (14:28)
[2017-06-12] MEDS ORDERED: Vancomycin 1,000 MG in D5% in Water 250 ML IVPB SCH (15:00)
[2017-06-12] MEDS ORDERED: Piperacillin/Tazobactam 2.25 GM in D5% in Water (Mini-Bag+) 100 ML IVPB SCH (16:00)
[2017-06-12] MEDS: Clotrimazole 1% CRM 15 GM TUBE TP SCH (21:10)
[2017-06-13] MEDS: *HR* OxyCODONE/APAP 5/325 TABLET PO PRN ×3 (01:15→18:02)
[2017-06-13] MEDS: Ipratropium/Albuterol Neb 3 ML IH SCH ×5 (04:27→20:17)
[2017-06-13] MEDS ORDERED: Ondansetron 4 MG/2 ML VIAL ONE (06:53)
[2017-06-13] MEDS: *HR* Heparin 5,000 UNIT/ML VIAL SQ SCH ×2 (07:03→18:02)
[2017-06-13] MEDS: Ondansetron 4 MG/2 ML VIAL IVP PRN (07:13)
[2017-06-13] MEDS: Budesonide/Formoterol 160/4.5 MDI IH SCH ×2 (07:43→20:17)
--- NOTE | 2017-06-13 07:51 | Cardiology Progress Note ---
Date of Encounter: 06/13/17 Time of Encounter: 08:00 Assessment and Plan (1) Acute and chronic respiratory failure with hypoxia Current Visit: Yes Status: Acute Per Cardiology: Acute on Chronic COPD exac and CHF-- BNP only in 400's. Has moderate PHTN. Management per primary service. On treatments and steroids. On lasix. Net I&O - 1640ml. (2) Atrial fibrillation with rapid ventricular response Current Visit: Yes Status: Acute Per Cardiology: Known history of chronic atrial fibrillation. Tele shows avg HR past 12 hrs 109 , currently afib 90s -110s. Systolic blood pressures 120s-130s. CT - PE. On home dose Toprol XL 100mg PO BID and I now decreased Cardizem CD 120mg PO daily (home dose 360)-- titrate based on BP. TSH ok. Mag stable. Now on amio gtt with better rate control-- discussed with Dr. Nelson, will add amio 200mg PO BID, will attmept to DC amio gtt if able. Suspect A. fib with RVR driven by underlying respiratory condition. Anticipate will be difficult to rate control. Last echo 10/2016 with preserved EF, mild MR, moderate PHTN-- current echo pending. Regarding long-term anticoagulation, history of TIA and CVA, however unfortunately not anticoagulated other than aspirin due to history of bleeding. Currently on aspirin. Patient aware of increased stroke risk. Patient is DNR/DNI/CCA. (3) History of coronary artery disease Current Visit: No Status: Chronic Per Cardiology: Hx of CAD. Last [facility] 10/2015-- Patent ESTEVEZ to LAD. Occluded SVG to OM and Diagonal. Severe diffuse circumflex artery stenosis and in-stent restenosis ( small diseased distal vessel). On asa, statin, BB. Stress test October 2016. Continue to monitor. On aspirin, statin, beta miroslava, long-acting nitrate. CP free. Trop mild at 0.04, suspected demand ischemia. (4) Hypokalemia Current Visit: No Status: Acute Per Cardiology: On Lasix 40mg PO BID. K remain low 3.2, will increase replacement and give another rider. Discussion w patient/family: The assessment and plan as outlined above was discussed with the patient who expressed understanding and agreement. All questions were answered. Thank you for involving us in the care of your patient. Please call with any questions. Subjective Principal diagnosis: Afib RVR Interval history: Patient denies any chest pain or palpitations. Reports mild improvement short of breath. Reports at home sick today now. Objective Vital Signs, Last 4 Hours Resp Pulse Ox 06/13/17 04:27 18 97 Selected Entries 06/13/17 03:07 06/13/17 04:27 06/13/17 05:00 Pulse Rate 106 Blood Pressure 130/87 O2 Sat by Pulse Oximetry 97 Oxygen Flow Rate (LPM) 3 Oxygen Delivery Method Nasal Cannula General: Conversant, Other (appears slightly improved today "feeling better") HEENT: Atraumatic, Normocephaly Cardiac: Other (Irregularly irregular) Lungs: Other (Diminished throughout, scattered rhonchi and mild conversational dyspnea, ) Neuro: Alert and responsive, No focal deficits noted Skin: No rashes noted on visualized skin Extremities: No Edema, Normal Pulses Results 06/13/17 09:39 06/13/17 09:39 Lab Results 06/12/17 11:14 Troponin I 0.04 H* Active Medications Albuterol Sulfate (Albuterol Inhaler) 2 puff IH [id number] PRN PRN Reason: Shortness Of Breath Stop: 12/12/17 16:01 Albuterol/Ipratropium (Duoneb) 3 ml IH [id number] [facility] Stop: 12/06/17 20:01 Last Admin: 06/13/17 07:43 Dose: 3 ml Aspirin (Aspirin Ec) 81 mg PO QAM [facility] Stop: 12/07/17 09:01 Budesonide/Formoterol Fumarate (Symbicort) 2 puff IH BIDRESP [facility] PRN Reason: Protocol Stop: 12/09/17 22:01 Last Admin: 06/13/17 07:43 Dose: 2 puff Clotrimazole (Lotrimin 1%) 1 appl TP BID [facility] PRN Reason: Protocol Stop: 12/12/17 21:01 Last Admin: 06/12/17 21:10 Dose: 1 appl Dextrose/Water (Dextrose 50% (Syg)) 25 ml IVP AD PRN PRN Reason: Hypoglycemia Stop: 12/08/17 17:42 Diltiazem HCl (Cardizem Cd) 360 mg PO QAM [facility] Stop: 12/08/17 16:01 Docusate Sodium (Colace) 100 mg PO BID [facility] PRN Reason: Protocol Stop: 12/06/17 21:01 Last Admin: 06/12/17 21:10 Dose: 100 mg Fluoxetine HCl (Prozac) 20 mg PO QAM [facility] PRN Reason: Protocol Stop: 12/07/17 09:01 Glucagon (Glucagen) 1 mg IM ONCE PRN PRN Reason: Hypoglycemia Stop: 12/08/17 17:42 Glucose (Gluctose) 15 gm PO ONCE PRN PRN Reason: Hypoglycemia Stop: 12/08/17 17:42 Glucose (Gluctose) 30 gm PO ONCE PRN PRN Reason: Hypoglycemia Stop: 12/08/17 17:42 Heparin Sodium (Porcine) (Heparin) 5,000 unit SQ Q12HCO [facility] Stop: 12/08/17 18:01 Last Admin: 06/13/17 07:03 Dose: 5,000 unit Hydroxyzine Pamoate (Hydroxyzine Pamoate) 25 mg PO HS PRN PRN Reason: Sleep Stop: 12/12/17 21:01 Amiodarone HCl/Dextrose (Amiodarone Drip Premix 360mg/200ml) 360 mg in 200 mls @ 16.667 mls/hr IVC CONT [facility] PRN Reason: 0.5 MG/MIN Stop: 12/12/17 10:46 Last Admin: 06/12/17 18:02 Dose: 0.5 mg/min, 16.667 mls/hr Dextrose (Dextrose 5%) 1,000 mls @ 100 mls/hr IVC .Q10H PRN PRN Reason: HYPOGLYCEMIA Stop: 12/08/17 17:42 Insulin Human Lispro (Humalog) 0 units SQ HS [facility] PRN Reason: Protocol Stop: 12/08/17 21:01 Last Admin: 06/12/17 23:21 Dose: 5 units Insulin Human Lispro (Humalog) 0 units SQ TIDAC [facility] PRN Reason: Protocol Stop: 12/09/17 07:31 Last Admin: 06/12/17 18:03 Dose: 4 units Isosorbide Mononitrate (Imdur) 60 mg PO DAILY [facility] Stop: 12/11/17 09:01 Lorazepam (Ativan) 0.5 mg PO BID PRN PRN Reason: Anxiety Stop: 12/06/17 15:21 Metoprolol Succinate (Toprol Xl) 100 mg PO BID [facility] Stop: 12/11/17 09:01 Last Admin: 06/12/17 21:09 Dose: 100 mg Naloxone HCl (Narcan) 0.4 mg IVP Q2MIN PRN PRN Reason: Opioid Reversal Stop: 12/06/17 15:17 Nitroglycerin (Nitroglycerin) 0.4 mg SL Q5M PRN PRN Reason: Chest Pain Stop: 12/06/17 15:21 Omeprazole (Prilosec) 40 mg PO 0630 [facility] Stop: 12/07/17 06:31 Last Admin: 06/13/17 07:03 Dose: 40 mg Ondansetron HCl (Zofran) 4 mg IVP Q6HR PRN; Protocol PRN Reason: Nausea Stop: 06/15/17 06:56 Last Admin: 06/13/17 07:13 Dose: 4 mg Oxycodone/Acetaminophen (Percocet 5/325) 1 each PO Q6H PRN PRN Reason: Pain Stop: 12/06/17 15:21 Last Admin: 06/13/17 01:15 Dose: 1 each Potassium Chloride (Potassium Chloride) 40 meq PO QAM [facility] Stop: 12/07/17 09:01 Pramipexole Dihydrochloride (Mirapex) 0.5 mg PO HS [facility] Stop: 12/06/17 21:01 Last Admin: 06/12/17 21:10 Dose: 0.5 mg Simvastatin (Zocor) 20 mg PO HS [facility] PRN Reason: Protocol Stop: 12/06/17 21:01 Last Admin: 06/12/17 21:10 Dose: 20 mg - Imaging and Cardiology Echo: pending - EKG Interpretation EKG results cardiology: other (Tele shows afib 100's, avg hr past 12 hrs 109, currently A. fib 90s to 110s.) - VTE Documentation of Mechanical Device: Graduated compression elastic hosiery Consult Discharge Plan - Plan Referrals: Tamiko Keys CNP [Primary Care Provider] - 06/15/17 10:35 am Adis Rey MD [Partnered Physician] - 06/15/17 1:45 pm Aubrey Torres MD [Partnered Physician] - 06/24/17 11:30 am
[2017-06-13] MEDS: FLUoxetine 20 MG CAPSULE PO SCH (08:14)
[2017-06-13] MEDS: Metoprolol XL (24 HR) Succ 50 MG TAB.ER.24H PO SCH ×3 (08:15→20:33)
[2017-06-13] MEDS: Insulin LISPRO 300 UNITS/3 ML VIAL SQ SCH ×4 (08:15→21:14)
[2017-06-13] MEDS: Isosorbide MONOnitrate (24 HR) 60 MG TAB.ER.24H PO SCH (08:15)
[2017-06-13] MEDS: Aspirin Enteric Coated 81 MG Tablet PO SCH (08:15)
[2017-06-13] MEDS: Clotrimazole 1% CRM 15 GM TUBE TP SCH ×2 (08:16→20:34)
[2017-06-13] MEDS: Diltiazem CD (24hr) 120 MG CAPSULE PO SCH (09:00)
[2017-06-13] MEDS ORDERED: Diltiazem CD (24hr) 180 MG CAPSULE PO SCH (09:00)
[2017-06-13] MEDS ORDERED: Piperacillin/Tazobactam 2.25 GM in D5% in Water (Mini-Bag+) 100 ML IVPB SCH (09:00)
[2017-06-13] MEDS ORDERED: predniSONE 20 MG TABLET PO SCH (09:00)
[2017-06-13 09:56] LABS: Basophils % 0.2 %; Hematocrit 37.1 % (35.3-44.9); Hemoglobin 11.6 g/dL (11.5-15.4); Immature Granulocytes % 1.6 % (0-4); Lymphocytes # 1.1 K/mcL (0.6-4.6); Lymphocytes % 6.6 %; Mean Corpuscular HGB Conc 31.3 g/dL (31.6-35.5); Mean Corpuscular Hemoglobin 28.4 pg (28.0-33.3); Mean Corpuscular Volume 90.9 fL (83.0-100.0); Monocytes # 0.7 K/mcL (0.0-1.3); Monocytes % 4.1 %; Neutrophils # 14.3 K/mcL (1.6-8.9); Nucleated Red Blood Cells 0.1 /100 WBC (0); Platelet Count 260 K/mcL (140-400); Red Blood Count 4.08 M/mcL (3.82-4.97); Red Cell Distribution Width 16.7 % (11.5-14.5); Segmented Neutrophils % 87.5 %
[2017-06-13 10:07] LABS: BUN/Creatinine Ratio 28 (6-26); Blood Urea Nitrogen 24 mg/dL (8-23); Calcium 8.7 mg/dL (8.6-10.3); Carbon Dioxide 29 mEq/L (23-29); Chloride 90 mEq/L (98-107); Glucose 194 mg/dL (70-105); Osmolality,Calculated 281 (280-300); Potassium 3.2 mEq/L (3.5-5.1); Sodium 131 mEq/L (136-145); eGFR For African Americans > 60 (> 60); eGFR For Non-African Americans > 60 (> 60)
[2017-06-13] MEDS: Vancomycin 1,250 MG in D5% in Water 250 ML IVPB SCH (10:32)
[2017-06-13] MEDS ORDERED: Potassium Chloride 40 MEQ, Lidocaine 1% 2 ML in D5% in Water 500 ML IVPB ONE (10:35)
[2017-06-13] MEDS: Piperacillin/Tazobactam 3.375 GM/200 ML BAG IVPB SCH ×2 (11:38→18:02)
[2017-06-13] MEDS: *HR* Amiodarone 200 MG TABLET PO SCH ×2 (11:38→20:33)
--- NOTE | 2017-06-13 14:02 | Internal Med Progress Note ---
Date of Encounter: 06/13/17 Time of Encounter: 09:30 - Assessment and plan (1) Acute and chronic respiratory failure with hypoxia Current Visit: Yes Status: Acute Assessment and plan: Acute on chronic hypoxic respiratory failure secondary to acute COPD and CHF exacerbation. - Currently on home level of 3L - Transferred to due to worsening respiratory status and need for IV amiodarone to control heartrate - Concerned there is a component of pneumonia or bronchitis - Zosyn and Vanc added for broader coverage - CXR today does not show significant fluid. - Will give dose of Lasix once today. (2) Atrial fibrillation Current Visit: No Status: Chronic Assessment and plan: Currently on amio drip and started on PO today. Continuing rate control medications as well. Qualifiers: Atrial fibrillation type: persistent Qualified Code(s): I48.1 - Persistent atrial fibrillation (3) CHF exacerbation Current Visit: No Status: Acute Assessment and plan: Remains congested but do not feel this is all related to fluid. Will dose with Lasix once today. Qualifiers: Congestive heart failure type: diastolic Qualified Code(s): I50.33 - Acute on chronic diastolic (congestive) heart failure (4) CKD (chronic kidney disease) Current Visit: No Status: Chronic Assessment and plan: Stable chronic kidney disease stage III - Avoid nephrotoxic medications and renally dose antibiotics Qualifiers: Chronic kidney disease stage: stage 3 (moderate) Qualified Code(s): N18.3 - Chronic kidney disease, stage 3 (moderate) (5) Hypertension Current Visit: No Status: Chronic Assessment and plan: BP has been on the lower side at this time due to diuresis. Continue to follow. Qualifiers: Hypertension type: essential hypertension Qualified Code(s): I10 - Essential (primary) hypertension (6) Hypokalemia Current Visit: No Status: Acute Assessment and plan: Replete today. (7) CAD (coronary artery disease) Current Visit: No Status: Chronic Assessment and plan: Chronic issue Qualifiers: Coronary Disease-Associated Artery/Lesion type: bypass graft [place] vs. transplanted heart: [place] heart Associated angina: without angina Qualified Code(s): I25.810 - Atherosclerosis of coronary artery bypass graft(s) without angina pectoris - Subjective Interval history: Ms Evans is currently admitted for acute respiratory failure related to CHF, COPD. She remains moderate to high risk due to potential for worsening clinical and respiratory status. Ms Evans was transferred to yesterday for amio drip. Her heart rate has improved some this AM. Still very congested in her chest. No fever. More alert today and appropriate. Denies pain at this time. - Constitutional Vitals: Temp Pulse Resp BP Pulse Ox 99.1 F 110 18 118/59 96 06/13/17 11:47 06/13/17 11:47 06/13/17 11:47 06/13/17 11:47 06/13/17 11:47 General appearance: Present: A&O X 3, pleasant, answers questions appropriately - Head Head exam: Present: atraumatic, normocephalic - Eye Eye exam: Present: EOMI, conjuntiva pink - ENT ENT exam: Present: mucous membranes dry - Respiratory Respiratory exam: Present: rales, rhonchi, wheezes Additional comments: Diffuse rhonchi. Bibasilar rales. Scant wheeze. More air movement than yesterday. - Cardiovascular Cardiovascular exam: Present: irregular rhythm, tachycardia - GI/Abdominal GI/Abdominal exam: Present: soft. Absent: tenderness - Extremities Exam Extremities exam: Present: pedal edema, warm. Absent: tenderness - Neurological Exam Neurological exam: Present: alert, oriented X3 - Skin Skin exam: Present: warm. Absent: rash Internal Medicine: Result - Labs CBC & Chem 7: 06/13/17 09:39 06/13/17 09:39 Labs: Short CBC 06/13/17 Range/Units 09:39 WBC 16.4 H (4.3-11.1) K/mcL Hgb 11.6 (11.5-15.4) g/dL Hct 37.1 (35.3-44.9) % Plt Count 260 (140-400) K/mcL Neutrophils # 14.3 H (1.6-8.9) K/mcL BMP 06/13/17 09:39 Sodium 131 L Potassium 3.2 L Chloride 90 L Carbon Dioxide 29 BUN 24 H Creatinine 0.86 Glucose 194 H Calcium 8.7 - ABG Interpretation ABG results: ABG ABG pH 7.57 pH Units (7.32-7.45) H 06/12/17 11:14 ABG pCO2 35 mmHg (35-45) 06/12/17 11:14 ABG pO2 75 mmHg (85-104) L 06/12/17 11:14 ABG O2 Saturation 97 % (95-98) 06/12/17 11:14 PT/INR, D-dimer PT 13.5 Seconds (9.4-12.1) H 06/07/17 05:30 - Impressions Impressions Chest X-Ray 06/13/17 08:03 IMPRESSION: Unchanged bibasilar atelectasis. D/ / Jeo Buchanan MD / Joe Buchanan MD Interpreting Provider: Joe Buchanan MD - VTE Documentation of Mechanical Device: Graduated compression elastic hosiery Consult Discharge Plan - Plan Referrals: Tamiko Keys CNP [Primary Care Provider] - 06/15/17 10:35 am Adis Rey MD [Partnered Physician] - 06/15/17 1:45 pm Aubrey Torres MD [Partnered Physician] - 06/24/17 11:30 am
[2017-06-13] MEDS: *HR* LORazepam 0.5 MG TABLET PO PRN (20:32)
[2017-06-14] MEDS: Ipratropium/Albuterol Neb 3 ML IH SCH ×7 (00:38→23:55)
[2017-06-14] MEDS: Piperacillin/Tazobactam 3.375 GM/200 ML BAG IVPB SCH ×3 (03:46→17:48)
[2017-06-14] MEDS: *HR* OxyCODONE/APAP 5/325 TABLET PO PRN ×2 (03:47→11:53)
[2017-06-14 04:30] LABS: Basophils % 0.2 %; Eosinophils # 0.1 K/mcL (0.0-0.6); Eosinophils % 0.3 %; Hematocrit 32.3 % (35.3-44.9); Hemoglobin 10.3 g/dL (11.5-15.4); Immature Granulocytes % 1.7 % (0-4); Lymphocytes # 1.1 K/mcL (0.6-4.6); Lymphocytes % 6.4 %; Mean Corpuscular HGB Conc 31.9 g/dL (31.6-35.5); Mean Corpuscular Hemoglobin 29.3 pg (28.0-33.3); Mean Corpuscular Volume 91.8 fL (83.0-100.0); Mean Platelet Volume 10.3 fL (9.4-12.4); Monocytes # 1.1 K/mcL (0.0-1.3); Monocytes % 6.1 %; Neutrophils # 15.2 K/mcL (1.6-8.9); Platelet Count 213 K/mcL (140-400); Red Blood Count 3.52 M/mcL (3.82-4.97); Red Cell Distribution Width 16.7 % (11.5-14.5); Segmented Neutrophils % 85.3 %
[2017-06-14 04:52] LABS: BUN/Creatinine Ratio 29 (6-26); Blood Urea Nitrogen 26 mg/dL (8-23); Calcium 8.5 mg/dL (8.6-10.3); Carbon Dioxide 29 mEq/L (23-29); Chloride 94 mEq/L (98-107); Glucose 142 mg/dL (70-105); Osmolality,Calculated 275 (280-300); Sodium 129 mEq/L (136-145); eGFR For African Americans > 60 (> 60); eGFR For Non-African Americans 59 (> 60)
[2017-06-14] MEDS: *HR* Heparin 5,000 UNIT/ML VIAL SQ SCH ×2 (06:50→17:48)
--- NOTE | 2017-06-14 08:08 | Cardiology Progress Note ---
Date of Encounter: 06/14/17 Time of Encounter: 08:05 Assessment and Plan (1) Acute and chronic respiratory failure with hypoxia Current Visit: Yes Status: Acute Per Cardiology: Acute on Chronic COPD exac and CHF-- BNP only in 400's. Has moderate PHTN. Management per primary service. On treatments and steroids. On lasix. Net I&O - 1170ml. (2) Atrial fibrillation with rapid ventricular response Current Visit: Yes Status: Acute Per Cardiology: Known history of chronic atrial fibrillation. CT - PE. Tele shows avg HR past 12 hrs 76, currently afib 80-90s. Systolic blood pressures running higher now. On home dose Toprol XL 100mg PO BID and Cardizem CD 120mg PO daily-- will increase to 240 (home dose was 360)-- titrate based on BP. On amio 200mg PO BID- - recommend PO BID for 7 days and then 200mg PO daily. Discussed with primary service, cardiology will sign off, reconsult as needed, follow-up arranged. All questions answered. Regarding long-term anticoagulation, history of TIA and CVA, however unfortunately not anticoagulated other than aspirin due to history of bleeding. Currently on aspirin. Patient aware of increased stroke risk. Patient is DNR/DNI/CCA. (3) History of coronary artery disease Current Visit: No Status: Chronic Per Cardiology: Hx of CAD. Last [facility] 10/2015-- Patent ESTEVEZ to LAD. Occluded SVG to OM and Diagonal. Severe diffuse circumflex artery stenosis and in-stent restenosis ( small diseased distal vessel). On asa, statin, BB. Stress test October 2016. Continue to monitor. On aspirin, statin, beta miroslava, long-acting nitrate. CP free. Trop mild at 0.04, suspected demand ischemia. (4) Hypokalemia Current Visit: No Status: Acute Per Cardiology: On Lasix. No Hyperkalemia-- jumped from 3.0, 3.2 to 6.0 (? accuracy). Will repeat K+. K replacement off. Discussion w patient/family: The assessment and plan as outlined above was discussed with the patient who expressed understanding and agreement. All questions were answered. Thank you for involving us in the care of your patient. Please call with any questions. Subjective Principal diagnosis: Afib RVR Interval history: Patient denies any chest pain or palpitations. Reports SOB continues to improve. Objective Vital Signs, Last 4 Hours Temp Pulse Resp BP Pulse Ox 06/14/17 06:47 98.3 F 73 15 160/115 97 06/14/17 04:24 18 96 General: Conversant HEENT: Atraumatic, Normocephaly Cardiac: Other (Irregularly irregular) Lungs: Other (Mildly labored at rest, scattered rhonchi throughout) Neuro: Alert and responsive, No focal deficits noted Abdomen: Soft, Non-Tender Skin: No rashes noted on visualized skin Extremities: No Edema, Normal Pulses Results 06/14/17 04:22 06/14/17 04:22 Lab Results Laboratory Tests 06/13/17 06/13/17 06/14/17 09:39 09:39 04:22 WBC 16.4 H 17.8 H Hgb 10.3 L Hct 32.3 L Potassium 3.2 L Creatinine 0.86 Est GFR (Non-Af Amer) > 60 06/14/17 04:22 WBC Hgb Hct Potassium 6.0 H D Creatinine Est GFR (Non-Af Amer) Impressions Chest X-Ray 06/13/17 08:03 IMPRESSION: Unchanged bibasilar atelectasis. D/ / Joe Buchanan MD / Joe Buchanan MD Interpreting Provider: Joe Buchanan MD Active Medications Albuterol Sulfate (Albuterol Inhaler) 2 puff IH [id number] PRN PRN Reason: Shortness Of Breath Stop: 12/12/17 16:01 Albuterol/Ipratropium (Duoneb) 3 ml IH [id number] [facility] Stop: 12/06/17 20:01 Last Admin: 06/14/17 08:44 Dose: 3 ml Amiodarone HCl (Cordarone) 200 mg PO BID [facility] Stop: 12/13/17 10:46 Last Admin: 06/14/17 08:22 Dose: 200 mg Aspirin (Aspirin Ec) 81 mg PO QAM [facility] Stop: 12/07/17 09:01 Last Admin: 06/14/17 08:22 Dose: 81 mg Budesonide/Formoterol Fumarate (Symbicort) 2 puff IH BIDRESP [facility] PRN Reason: Protocol Stop: 12/09/17 22:01 Last Admin: 06/14/17 08:44 Dose: 2 puff Clotrimazole (Lotrimin 1%) 1 appl TP BID [facility] PRN Reason: Protocol Stop: 12/12/17 21:01 Last Admin: 06/14/17 08:25 Dose: 1 appl Dextrose/Water (Dextrose 50% (Syg)) 25 ml IVP AD PRN PRN Reason: Hypoglycemia Stop: 12/08/17 17:42 Diltiazem HCl (Cardizem Cd) 120 mg PO QAM [facility] Stop: 12/13/17 09:01 Last Admin: 06/14/17 08:22 Dose: 120 mg Docusate Sodium (Colace) 100 mg PO BID [facility] PRN Reason: Protocol Stop: 12/06/17 21:01 Last Admin: 06/14/17 08:23 Dose: 100 mg Fluoxetine HCl (Prozac) 20 mg PO QAM [facility] PRN Reason: Protocol Stop: 12/07/17 09:01 Last Admin: 06/14/17 08:21 Dose: 20 mg Glucagon (Glucagen) 1 mg IM ONCE PRN PRN Reason: Hypoglycemia Stop: 12/08/17 17:42 Glucose (Gluctose) 15 gm PO ONCE PRN PRN Reason: Hypoglycemia Stop: 12/08/17 17:42 Glucose (Gluctose) 30 gm PO ONCE PRN PRN Reason: Hypoglycemia Stop: 12/08/17 17:42 Guaifenesin (Robitussin/Dm) 10 ml PO Q6HR PRN PRN Reason: Cough Stop: 12/13/17 20:24 Last Admin: 06/14/17 08:21 Dose: 10 ml Heparin Sodium (Porcine) (Heparin) 5,000 unit SQ Q12HCO [facility] Stop: 12/08/17 18:01 Last Admin: 06/14/17 06:50 Dose: 5,000 unit Hydroxyzine Pamoate (Hydroxyzine Pamoate) 25 mg PO HS PRN PRN Reason: Sleep Stop: 12/12/17 21:01 Dextrose (Dextrose 5%) 1,000 mls @ 100 mls/hr IVC .Q10H PRN PRN Reason: HYPOGLYCEMIA Stop: 12/08/17 17:42 Vancomycin HCl 1,250 mg/ (Dextrose) 250 mls @ 167 mls/hr IVPB Q24H [facility] PRN Reason: Protocol Stop: 12/13/17 10:01 Last Admin: 06/14/17 08:24 Dose: 167 mls/hr Piperacillin Sod/Tazobactam Sod (Zosyn Premix 3.375 Gm/200 Ml) 3.375 gm in 200 mls @ 50 mls/hr IVPB Q8H [facility] Stop: 12/13/17 10:01 Last Admin: 06/14/17 03:46 Dose: 50 mls/hr Calcium Gluconate 2,000 mg/ (Sodium Chloride) 120 mls @ 220 mls/hr IVPB ONCE ONE Stop: 06/14/17 10:02 Insulin Human Lispro (Humalog) 0 units SQ HS [facility] PRN Reason: Protocol Stop: 12/08/17 21:01 Last Admin: 06/13/17 21:14 Dose: Not Given Insulin Human Lispro (Humalog) 0 units SQ TIDAC [facility] PRN Reason: Protocol Stop: 12/09/17 07:31 Last Admin: 06/14/17 08:24 Dose: Not Given Isosorbide Mononitrate (Imdur) 60 mg PO DAILY [facility] Stop: 12/11/17 09:01 Last Admin: 06/14/17 08:21 Dose: 60 mg Lorazepam (Ativan) 0.5 mg PO BID PRN PRN Reason: Anxiety Stop: 12/06/17 15:21 Last Admin: 06/13/17 20:32 Dose: 0.5 mg Metoprolol Succinate (Toprol Xl) 100 mg PO BID [facility] Stop: 12/11/17 09:01 Last Admin: 06/14/17 08:22 Dose: 100 mg Naloxone HCl (Narcan) 0.4 mg IVP Q2MIN PRN PRN Reason: Opioid Reversal Stop: 12/06/17 15:17 Nitroglycerin (Nitroglycerin) 0.4 mg SL Q5M PRN PRN Reason: Chest Pain Stop: 12/06/17 15:21 Omeprazole (Prilosec) 40 mg PO 0630 [facility] Stop: 12/07/17 06:31 Last Admin: 06/14/17 06:51 Dose: 40 mg Ondansetron HCl (Zofran) 4 mg IVP Q6HR PRN; Protocol PRN Reason: Nausea Stop: 06/15/17 06:56 Last Admin: 06/13/17 07:13 Dose: 4 mg Oxycodone/Acetaminophen (Percocet 5/325) 1 each PO Q6H PRN PRN Reason: Pain Stop: 12/06/17 15:21 Last Admin: 06/14/17 03:47 Dose: 1 each Pramipexole Dihydrochloride (Mirapex) 0.5 mg PO HS [facility] Stop: 12/06/17 21:01 Last Admin: 06/13/17 20:32 Dose: 0.5 mg Simvastatin (Zocor) 20 mg PO HS [facility] PRN Reason: Protocol Stop: 12/06/17 21:01 Last Admin: 06/13/17 20:33 Dose: 20 mg - EKG Interpretation EKG results cardiology: other (Telemetry reviewed with average heart rate is 12 hour 76, A. fib. Currently A. fib in the 80s to 90s.) - VTE Documentation of Mechanical Device: Graduated compression elastic hosiery Consult Discharge Plan - Plan Referrals: Tamiko Keys CNP [Primary Care Provider] - 06/15/17 10:35 am Adis Rey MD [Partnered Physician] - 06/15/17 1:45 pm Aubrey Torres MD [Partnered Physician] - 06/24/17 11:30 am
[2017-06-14] MEDS: Isosorbide MONOnitrate (24 HR) 60 MG TAB.ER.24H PO SCH (08:21)
[2017-06-14] MEDS: FLUoxetine 20 MG CAPSULE PO SCH (08:21)
[2017-06-14] MEDS: *HR* Amiodarone 200 MG TABLET PO SCH ×2 (08:22→20:50)
[2017-06-14] MEDS: Metoprolol XL (24 HR) Succ 50 MG TAB.ER.24H PO SCH ×2 (08:22→20:50)
[2017-06-14] MEDS: Aspirin Enteric Coated 81 MG Tablet PO SCH (08:22)
[2017-06-14] MEDS: Diltiazem CD (24hr) 120 MG CAPSULE PO SCH (08:22)
[2017-06-14] MEDS: Insulin LISPRO 300 UNITS/3 ML VIAL SQ SCH ×4 (08:24→20:51)
[2017-06-14] MEDS: Vancomycin 1,250 MG in D5% in Water 250 ML IVPB SCH (08:24)
[2017-06-14] MEDS: Clotrimazole 1% CRM 15 GM TUBE TP SCH ×2 (08:25→20:50)
[2017-06-14] MEDS: Budesonide/Formoterol 160/4.5 MDI IH SCH ×2 (08:44→19:51)
[2017-06-14] MEDS ORDERED: Calcium Gluconate 2,000 MG in D5% in Water 100 ML IVPB ONE (08:51)
--- NOTE | 2017-06-14 09:07 | Internal Med Progress Note ---
<Raza Garcia - Last Filed: 06/14/17 17:52> Date of Encounter: 06/14/17 Time of Encounter: 09:07 - Assessment and plan (1) Acute and chronic respiratory failure with hypoxia Current Visit: Yes Status: Acute Assessment and plan: Acute on chronic hypoxic respiratory failure secondary to acute COPDE, atrial fibrillation with rapid ventricular rate and deconditioning. Patient has been adequately diuresed and is euvolemic, continues to have diffuse wheezing and rhonchi likely due to her underlying breast or status and deconditioned state. - Currently on home level of 3L - Complete amiodarone titration and currently rate controlled. - Tolerating current antibiotic coverage- Zosyn and Vanc added for broader coverage. - Continue 40 mg by mouth Lasix twice a day, home dose. - Continue prednisone 40 mg by mouth daily - Continue bronchodilators (2) Atrial fibrillation with rapid ventricular response Current Visit: Yes Status: Acute Assessment and plan: Secondary to COPD exacerbation and diastolic heart failure exacerbation. Currently uncontrolled, difficulty likely secondary to hypoxia, COPD exacerbation and vascular overload. Plan: - Cardiology on board to assist with rate control. - Cardizem CD 240 by mouth daily - Amiodarone 200 mg by mouth twice a day - Metoprolol XL 100 mg by mouth twice a day - Patient unable to be anticoagulated outside of aspirin 81 mg secondary to GI bleeding history. Risks of stroke have been discussed with patient. (3) CKD (chronic kidney disease) Current Visit: No Status: Chronic Assessment and plan: Stable chronic kidney disease stage III - Avoid nephrotoxic medications and renally dose antibiotics Qualifiers: Chronic kidney disease stage: stage 3 (moderate) Qualified Code(s): N18.3 - Chronic kidney disease, stage 3 (moderate) (4) Diastolic CHF Current Visit: No Status: Acute Assessment and plan: Patient demonstrates volume overload with auscultation demonstrating diffuse rhonchi, JVD and a BNP of 456 Plan: - 40 mg by mouth Lasix twice a day - Fluid restrictions, sodium restrictions and daily weights as discussed above - Wean oxygen as tolerated, monitor rate and rhythm - Continue Imdur Qualifiers: Congestive heart failure chronicity: acute on chronic Qualified Code(s): I50.33 - Acute on chronic diastolic (congestive) heart failure (5) Hyperglycemia Current Visit: Yes Status: Acute Assessment and plan: No documentation of previous diabetes. - Continue low-dose sliding scale with before meals and at bedtime glucose checks (6) DVT prophylaxis Current Visit: No Status: Acute Assessment and plan: Subcutaneous heparin Code(s): [id number] - - Subjective Interval history: Mrs. Evans has been seen and evaluated at bedside. She is awake alert and interactive no acute distress. She states that her breathing is fine and does have a occasional coughing but unable to bring up any production. She denies any fevers, chills, nausea vomiting diarrhea constipation chest pain, chest pressure, abdominal discomforts, changes in urination or swelling in her extremities. - Constitutional Vitals: Temp Pulse Resp BP Pulse Ox 98.3 F 73 15 160/115 97 06/14/17 06:47 06/14/17 06:47 06/14/17 08:45 06/14/17 06:47 06/14/17 08:45 General appearance: Present: A&O X 3, pleasant, answers questions appropriately Exam: General: Patient alert, awake, oriented 3, interactive, no acute distress HEENT: Normocephalic, atraumatic, pupils equal reactive to light, nasal cavity patent and open septum median position, oral mucosa moist, uvula midline, neck supple trachea midline no palpable lymphadenopathy, no thyromegaly. Chest: Symmetric bilateral correlating with respiratory effort, effort nonlabored. Cardiac: Irregularly irregular heart rate and rhythm. no bruits appreciated bilateral carotids, Radial pulses 2+ bilateral, posterior tibial and dorsal pedal pulses 2+ bilateral. Respiratory: Diffuse wheezing, diffuse rhonchi. Respiratory effort nonlabored. Abdomen: Soft, nontender, positive bowel sounds, no palpable masses appreciated on examination Extremities: Symmetric bilateral, bilateral lower extremities without erythema or edema patient moving all 4 extremities spontaneously. Neurologic: No focal deficits appreciated on examination. Face symmetric, muscle strength symmetric bilateral upper and lower extremities. Internal Medicine: Result - Labs CBC & Chem 7: 06/14/17 04:22 06/14/17 10:10 Labs: Short CBC 06/13/17 06/14/17 Range/Units 09:39 04:22 WBC 16.4 H 17.8 H (4.3-11.1) K/mcL Hgb 11.6 10.3 L (11.5-15.4) g/dL Hct 37.1 32.3 L (35.3-44.9) % Plt Count 260 213 (140-400) K/mcL Neutrophils # 14.3 H 15.2 H (1.6-8.9) K/mcL BMP 06/13/17 06/14/17 09:39 04:22 Sodium 131 L 129 L Potassium 3.2 L 6.0 H D Chloride 90 L 94 L Carbon Dioxide 29 29 BUN 24 H 26 H Creatinine 0.86 0.90 Glucose 194 H 142 H Calcium 8.7 8.5 L - ABG Interpretation ABG results: ABG ABG pH 7.57 pH Units (7.32-7.45) H 06/12/17 11:14 ABG pCO2 35 mmHg (35-45) 06/12/17 11:14 ABG pO2 75 mmHg (85-104) L 06/12/17 11:14 ABG O2 Saturation 97 % (95-98) 06/12/17 11:14 PT/INR, D-dimer PT 13.5 Seconds (9.4-12.1) H 06/07/17 05:30 - Impressions Impressions Chest X-Ray 06/13/17 08:03 IMPRESSION: Unchanged bibasilar atelectasis. D/ / Joe Buchanan MD / Joe Buchanan MD Interpreting Provider: Joe Buchanan MD - VTE Documentation of Mechanical Device: Graduated compression elastic hosiery Consult Discharge Plan - Plan Referrals: Tamiko Keys CNP [Primary Care Provider] - 06/15/17 10:35 am Adis Rey MD [Partnered Physician] - 06/15/17 1:45 pm Aubrey Torres MD [Partnered Physician] - 06/24/17 11:30 am <Carlos Wills - Last Filed: 06/14/17 18:14> Date of Encounter: 06/14/17 - Assessment and plan (1) Acute and chronic respiratory failure with hypoxia Current Visit: Yes Status: Acute (2) Atrial fibrillation Current Visit: No Status: Chronic Qualifiers: Atrial fibrillation type: persistent Qualified Code(s): I48.1 - Persistent atrial fibrillation (3) CHF exacerbation Current Visit: No Status: Acute Qualifiers: Congestive heart failure type: diastolic Qualified Code(s): I50.33 - Acute on chronic diastolic (congestive) heart failure (4) CKD (chronic kidney disease) Current Visit: No Status: Chronic Qualifiers: Chronic kidney disease stage: stage 3 (moderate) Qualified Code(s): N18.3 - Chronic kidney disease, stage 3 (moderate) (5) Hypertension Current Visit: No Status: Chronic Qualifiers: Hypertension type: essential hypertension Qualified Code(s): I10 - Essential (primary) hypertension (6) Hypokalemia Current Visit: No Status: Resolved (7) CAD (coronary artery disease) Current Visit: No Status: Chronic Qualifiers: Coronary Disease-Associated Artery/Lesion type: bypass graft [place] vs. transplanted heart: [place] heart Associated angina: without angina Qualified Code(s): I25.810 - Atherosclerosis of coronary artery bypass graft(s) without angina pectoris - Constitutional Vitals: Temp Pulse Resp BP Pulse Ox 98.8 F 94 20 122/70 99 06/14/17 15:54 06/14/17 15:54 06/14/17 15:54 06/14/17 15:54 06/14/17 15:54 Internal Medicine: Result - Labs CBC & Chem 7: 06/14/17 04:22 06/14/17 10:10 Labs: Short CBC 06/14/17 Range/Units 04:22 WBC 17.8 H (4.3-11.1) K/mcL Hgb 10.3 L (11.5-15.4) g/dL Hct 32.3 L (35.3-44.9) % Plt Count 213 (140-400) K/mcL Neutrophils # 15.2 H (1.6-8.9) K/mcL BMP 06/14/17 06/14/17 04:22 10:10 Sodium 129 L Potassium 6.0 H D 5.1 Chloride 94 L Carbon Dioxide 29 BUN 26 H Creatinine 0.90 Glucose 142 H Calcium 8.5 L - ABG Interpretation ABG results: ABG ABG pH 7.57 pH Units (7.32-7.45) H 06/12/17 11:14 ABG pCO2 35 mmHg (35-45) 06/12/17 11:14 ABG pO2 75 mmHg (85-104) L 06/12/17 11:14 ABG O2 Saturation 97 % (95-98) 06/12/17 11:14 PT/INR, D-dimer PT 13.5 Seconds (9.4-12.1) H 06/07/17 05:30 - Impressions Impressions Echocardiogram 06/12/17 11:01 Impressions: LVEF 50-55%. Normal LV chamber size, wall thickness and function. Atypical septal motion consistent with post-operative status. Indeterminate diastolic function. Normal right ventricular structure and function. Severe left atrial enlargement. Mild tricuspid regurgitation. No pulmonary hypertension. Left Ventricular Wall Motion: Rest Echo Findings All wall segments showed normal motion. Findings: Study Quality * Technically adequate exam. ECG Findings * Atrial fibrillation, bundle branch block. Left Ventricle * LVEF 50-55%. * Normal LV chamber size, wall thickness and function. * Atypical septal motion consistent with post-operative status. * Indeterminate diastolic function. Right Ventricle * Normal right ventricular structure and function. Left Atrium * Severely dilated left atrium. Right Atrium * Moderately dilated right atrium. Aortic Valve * Trileaflet aortic valve. * Mildly sclerotic aortic valve leaflets. * Trace aortic regurgitation. * No aortic stenosis. Mitral Valve * Mild mitral annular calcification * Mildly thickened mitral valve leaflets. * Trace mitral regurgitation. * No mitral stenosis. Tricuspid Valve * Normal tricuspid valve structure. * Mild tricuspid regurgitation. * No pulmonary hypertension. Pulmonic Valve * Normal pulmonic valve structure and function. * Trace pulmonic regurgitation. Aorta * Normally sized aortic root. Pericardium * The pericardium appears normal. IVC * Normal IVC dimensions and inspiratory collapse. Pulmonary Artery * Normal visualized portions of the main pulmonary artery. - Attending Attestation I examined this patient and my medical decision-making was reviewed with the Resident Physician on 06/14/17. I agree with the documented findings, disposition and treatment plan as described except to the extent set forth below. Ms Evans is currently admitted for resp failure and rapid a fib. She remains moderate to high risk due to potential for worsening clinical status. Ms Evans is still very congested. WBC still elevated. No fever. Not able to mobilize sputum well. No pain. Exam Alert. Comfortable Mucus membranes dry Heart irreg and not tachy Rhonchi anteriorly Abd soft I/P 1. Resp failure 2. a fib Further diagnoses and plan as above.
[2017-06-14] MEDS ORDERED: Calcium Gluconate 2,000 MG in 0.9 % Sodium Chloride 100 ML IVPB ONE (09:30)
[2017-06-14] MEDS ORDERED: Diltiazem CD (24hr) 120 MG CAPSULE PO ONE (09:53)
[2017-06-14] MEDS: Ondansetron 4 MG/2 ML VIAL IVP PRN (11:00)
[2017-06-14] MEDS: predniSONE 20 MG TABLET PO SCH (11:53)
[2017-06-14] MEDS: *HR* LORazepam 0.5 MG TABLET PO PRN (14:18)
[2017-06-14] MEDS: Furosemide 40 MG TABLET PO SCH (17:47)
[2017-06-15] MEDS: Piperacillin/Tazobactam 3.375 GM/200 ML BAG IVPB SCH ×3 (02:33→18:31)
[2017-06-15] MEDS: *HR* LORazepam 0.5 MG TABLET PO PRN ×2 (02:38→11:47)
[2017-06-15] MEDS: Ipratropium/Albuterol Neb 3 ML IH SCH ×6 (03:58→23:07)
[2017-06-15] MEDS: *HR* Heparin 5,000 UNIT/ML VIAL SQ SCH ×2 (06:01→18:30)
[2017-06-15 06:17] LABS: Basophils % 0.1 %; Hematocrit 31.1 % (35.3-44.9); Hemoglobin 9.5 g/dL (11.5-15.4); Immature Granulocytes % 1.7 % (0-4); Lymphocytes # 0.6 K/mcL (0.6-4.6); Lymphocytes % 4.6 %; Mean Corpuscular HGB Conc 30.5 g/dL (31.6-35.5); Mean Corpuscular Hemoglobin 28.3 pg (28.0-33.3); Mean Corpuscular Volume 92.6 fL (83.0-100.0); Mean Platelet Volume 10.8 fL (9.4-12.4); Monocytes # 0.5 K/mcL (0.0-1.3); Monocytes % 3.8 %; Neutrophils # 10.7 K/mcL (1.6-8.9); Platelet Count 183 K/mcL (140-400); Red Blood Count 3.36 M/mcL (3.82-4.97); Red Cell Distribution Width 16.3 % (11.5-14.5); Segmented Neutrophils % 89.8 %
[2017-06-15 06:29] LABS: Alanine Aminotransferase 13 Units/L (7-52); Albumin 2.8 g/dL (3.5-5.7); Albumin/Globulin Ratio 1.1 (1.1-2.2); Alkaline Phosphatase 44 Units/L (34-104); Aspartate Amino Transferase 13 Units/L (13-39); BUN/Creatinine Ratio 26 (6-26); Bilirubin,Total 0.4 mg/dL (0.3-1.0); Blood Urea Nitrogen 20 mg/dL (8-23); Calcium 8.6 mg/dL (8.6-10.3); Calcium 8.7 mg/dL (8.6-10.3); Carbon Dioxide 33 mEq/L (23-29); Chloride 92 mEq/L (98-107); Globulin 2.5 g/dL (2.4-3.5); Glucose 164 mg/dL (70-105); Glucose 166 mg/dL (70-105); Osmolality,Calculated 282 (280-300); Osmolality,Calculated 284 (280-300); Potassium 3.3 mEq/L (3.5-5.1); Sodium 133 mEq/L (136-145); Sodium 134 mEq/L (136-145); Total Protein 5.3 g/dL (6.4-8.9); eGFR For African Americans > 60 (> 60); eGFR For Non-African Americans > 60 (> 60)
--- NOTE | 2017-06-15 07:44 | Internal Med Progress Note ---
<Raza Garcia - Last Filed: 06/16/17 15:59> Date of Encounter: 06/16/17 Time of Encounter: 07:44 - Assessment and plan (1) Acute and chronic respiratory failure with hypoxia Current Visit: Yes Status: Acute Assessment and plan: Improving. Secondary to COPDE, CHF exacerbation. - Currently on home level of 3L - Continue rate control per cardiology - Tolerating current antibiotic coverage- Zosyn and Vanc added for broader coverage. - Continue 40 mg by mouth Lasix twice a day, home dose. - Continue prednisone 40 mg by mouth daily - Continue bronchodilators (2) Atrial fibrillation with rapid ventricular response Current Visit: Yes Status: Acute Assessment and plan: Secondary to COPD exacerbation and diastolic heart failure exacerbation. Rate controlled. Plan: - Cardiology on board to assist with rate control. - Cardizem CD 240 by mouth daily - Amiodarone 200 mg by mouth twice a day - Metoprolol XL 100 mg by mouth twice a day - Patient unable to be anticoagulated outside of aspirin 81 mg secondary to GI bleeding history. Risks of stroke have been discussed with patient. (3) CKD (chronic kidney disease) Current Visit: No Status: Chronic Assessment and plan: Stable chronic kidney disease stage III - Avoid nephrotoxic medications and renally dose antibiotics Qualifiers: Chronic kidney disease stage: stage 3 (moderate) Qualified Code(s): N18.3 - Chronic kidney disease, stage 3 (moderate) (4) Diastolic CHF Current Visit: No Status: Acute Assessment and plan: Patient demonstrates volume overload with auscultation demonstrating diffuse rhonchi, JVD and a BNP of 456 Plan: - 40 mg by mouth Lasix twice a day - Fluid restrictions, sodium restrictions and daily weights as discussed above - Wean oxygen as tolerated, monitor rate and rhythm - Continue Imdur Qualifiers: Congestive heart failure chronicity: acute on chronic Qualified Code(s): I50.33 - Acute on chronic diastolic (congestive) heart failure (5) Hyperglycemia Current Visit: Yes Status: Acute Assessment and plan: No documentation of previous diabetes. Continues to have hyperglycemia with glucoses up to 450. Will obtain hemoglobin A1c, place on a [facility] protocol. Plan: - Levemir 5 units every morning - Medium dose sliding scale (6) DVT prophylaxis Current Visit: No Status: Acute Assessment and plan: Subcutaneous heparin Code(s): [id number] - - Subjective Interval history: Mrs. Evans has been seen and evaluated at bedside. She is awake alert and interactive no acute distress. She is feeling well without complaint today. No acute events over night. - Constitutional Vitals: Temp Pulse Resp BP Pulse Ox 98.5 F 90 18 110/53 90 06/15/17 07:08 06/15/17 07:08 06/15/17 07:08 06/15/17 07:08 06/15/17 07:08 General appearance: Present: A&O X 3, pleasant, answers questions appropriately Exam: General: Patient alert, awake, oriented 3, interactive, no acute distress HEENT: Normocephalic, atraumatic, pupils equal reactive to light, nasal cavity patent and open septum median position, oral mucosa moist, uvula midline, neck supple trachea midline no palpable lymphadenopathy, no thyromegaly. Chest: Symmetric bilateral correlating with respiratory effort, effort nonlabored. Cardiac: Irregularly irregular heart rate and rhythm. no bruits appreciated bilateral carotids, Radial pulses 2+ bilateral, posterior tibial and dorsal pedal pulses 2+ bilateral. Respiratory: Bronchial congestion appreciated upon auscultation, clear to auscultation in all lung rueda Abdomen: Soft, nontender, positive bowel sounds, no palpable masses appreciated on examination Extremities: Symmetric bilateral, bilateral lower extremities without erythema or edema patient moving all 4 extremities spontaneously. Neurologic: No focal deficits appreciated on examination. Face symmetric, muscle strength symmetric bilateral upper and lower extremities. Internal Medicine: Result - Labs CBC & Chem 7: 06/16/17 04:20 06/16/17 04:20 Labs: Short CBC 06/15/17 Range/Units 05:55 WBC 11.9 H (4.3-11.1) K/mcL Hgb 9.5 L (11.5-15.4) g/dL Hct 31.1 L (35.3-44.9) % Plt Count 183 (140-400) K/mcL Neutrophils # 10.7 H (1.6-8.9) K/mcL BMP 06/14/17 06/15/17 06/15/17 10:10 05:55 05:55 Sodium 133 L 134 L Potassium 5.1 3.3 L D 3.3 L Chloride 92 L 92 L Carbon Dioxide 33 H 33 H BUN 20 20 Creatinine 0.76 0.77 Glucose 166 H 164 H Calcium 8.7 8.6 Liver Function 06/15/17 Range/Units 05:55 Total Bilirubin 0.4 (0.3-1.0) mg/dL AST 13 (13-39) Units/L ALT 13 (7-52) Units/L Alkaline Phosphatase 44 (34-104) Units/L Albumin 2.8 L (3.5-5.7) g/dL - ABG Interpretation ABG results: ABG ABG pH 7.57 pH Units (7.32-7.45) H 06/12/17 11:14 ABG pCO2 35 mmHg (35-45) 06/12/17 11:14 ABG pO2 75 mmHg (85-104) L 06/12/17 11:14 ABG O2 Saturation 97 % (95-98) 06/12/17 11:14 PT/INR, D-dimer PT 13.5 Seconds (9.4-12.1) H 06/07/17 05:30 - Impressions Impressions Echocardiogram 06/12/17 11:01 Impressions: LVEF 50-55%. Normal LV chamber size, wall thickness and function. Atypical septal motion consistent with post-operative status. Indeterminate diastolic function. Normal right ventricular structure and function. Severe left atrial enlargement. Mild tricuspid regurgitation. No pulmonary hypertension. Left Ventricular Wall Motion: Rest Echo Findings All wall segments showed normal motion. Findings: Study Quality * Technically adequate exam. ECG Findings * Atrial fibrillation, bundle branch block. Left Ventricle * LVEF 50-55%. * Normal LV chamber size, wall thickness and function. * Atypical septal motion consistent with post-operative status. * Indeterminate diastolic function. Right Ventricle * Normal right ventricular structure and function. Left Atrium * Severely dilated left atrium. Right Atrium * Moderately dilated right atrium. Aortic Valve * Trileaflet aortic valve. * Mildly sclerotic aortic valve leaflets. * Trace aortic regurgitation. * No aortic stenosis. Mitral Valve * Mild mitral annular calcification * Mildly thickened mitral valve leaflets. * Trace mitral regurgitation. * No mitral stenosis. Tricuspid Valve * Normal tricuspid valve structure. * Mild tricuspid regurgitation. * No pulmonary hypertension. Pulmonic Valve * Normal pulmonic valve structure and function. * Trace pulmonic regurgitation. Aorta * Normally sized aortic root. Pericardium * The pericardium appears normal. IVC * Normal IVC dimensions and inspiratory collapse. Pulmonary Artery * Normal visualized portions of the main pulmonary artery. - VTE Documentation of Mechanical Device: Graduated compression elastic hosiery Consult Discharge Plan - Plan Referrals: Tamiko Keys CNP [Primary Care Provider] - 06/15/17 10:35 am Adis Rey MD [Partnered Physician] - 06/15/17 1:45 pm Aubrey Torres MD [Partnered Physician] - 06/24/17 11:30 am <Carlos Wills - Last Filed: 06/16/17 18:05> Date of Encounter: 06/15/17 - Assessment and plan (1) Acute and chronic respiratory failure with hypoxia Current Visit: Yes Status: Acute (2) Atrial fibrillation Current Visit: No Status: Chronic Qualifiers: Atrial fibrillation type: persistent Qualified Code(s): I48.1 - Persistent atrial fibrillation (3) CHF exacerbation Current Visit: No Status: Acute Qualifiers: Congestive heart failure type: diastolic Qualified Code(s): I50.33 - Acute on chronic diastolic (congestive) heart failure (4) CKD (chronic kidney disease) Current Visit: No Status: Chronic Qualifiers: Chronic kidney disease stage: stage 3 (moderate) Qualified Code(s): N18.3 - Chronic kidney disease, stage 3 (moderate) (5) Hypertension Current Visit: No Status: Chronic Qualifiers: Hypertension type: essential hypertension Qualified Code(s): I10 - Essential (primary) hypertension (6) CAD (coronary artery disease) Current Visit: No Status: Chronic Qualifiers: Coronary Disease-Associated Artery/Lesion type: bypass graft [place] vs. transplanted heart: [place] heart Associated angina: without angina Qualified Code(s): I25.810 - Atherosclerosis of coronary artery bypass graft(s) without angina pectoris - Constitutional Vitals: Temp Pulse Resp BP Pulse Ox 98.4 F 103 18 110/60 98 06/15/17 14:44 06/15/17 14:44 06/15/17 15:58 06/15/17 14:44 06/15/17 15:58 Internal Medicine: Result - Labs CBC & Chem 7: 06/16/17 04:20 06/16/17 04:20 Labs: Short CBC 06/15/17 Range/Units 05:55 WBC 11.9 H (4.3-11.1) K/mcL Hgb 9.5 L (11.5-15.4) g/dL Hct 31.1 L (35.3-44.9) % Plt Count 183 (140-400) K/mcL Neutrophils # 10.7 H (1.6-8.9) K/mcL BMP 06/15/17 06/15/17 05:55 05:55 Sodium 133 L 134 L Potassium 3.3 L D 3.3 L Chloride 92 L 92 L Carbon Dioxide 33 H 33 H BUN 20 20 Creatinine 0.76 0.77 Glucose 166 H 164 H Calcium 8.7 8.6 Liver Function 06/15/17 Range/Units 05:55 Total Bilirubin 0.4 (0.3-1.0) mg/dL AST 13 (13-39) Units/L ALT 13 (7-52) Units/L Alkaline Phosphatase 44 (34-104) Units/L Albumin 2.8 L (3.5-5.7) g/dL - ABG Interpretation ABG results: ABG ABG pH 7.57 pH Units (7.32-7.45) H 06/12/17 11:14 ABG pCO2 35 mmHg (35-45) 06/12/17 11:14 ABG pO2 75 mmHg (85-104) L 06/12/17 11:14 ABG O2 Saturation 97 % (95-98) 06/12/17 11:14 PT/INR, D-dimer PT 13.5 Seconds (9.4-12.1) H 06/07/17 05:30 - Attending Attestation I examined this patient and my medical decision-making was reviewed with the Resident Physician on 06/15/17. I agree with the documented findings, disposition and treatment plan as described except to the extent set forth below. Ms Evans is currently admitted for acute resp failure and a fib. She remains moderate to high risk due to potential for worsening clinical status. Ms Evans was up in chair. She had less upper airway congestion now. No fever. Heart rate better. Exam Alert. pleasant Mucus membranes dry Heart irreg Lungs with rales, rhonchi Abd soft I/P 1. Resp failure 2. A fib Further diagnoses and plan as above.
[2017-06-15] MEDS: Isosorbide MONOnitrate (24 HR) 60 MG TAB.ER.24H PO SCH (07:56)
[2017-06-15] MEDS: *HR* Amiodarone 200 MG TABLET PO SCH ×2 (07:56→22:40)
[2017-06-15] MEDS: Diltiazem CD (24hr) 120 MG CAPSULE PO SCH (07:56)
[2017-06-15] MEDS: FLUoxetine 20 MG CAPSULE PO SCH (07:57)
[2017-06-15] MEDS: Furosemide 40 MG TABLET PO SCH ×2 (07:57→18:30)
[2017-06-15] MEDS: Aspirin Enteric Coated 81 MG Tablet PO SCH (07:57)
[2017-06-15] MEDS: predniSONE 20 MG TABLET PO SCH (07:57)
[2017-06-15] MEDS: Insulin LISPRO 300 UNITS/3 ML VIAL SQ SCH ×4 (07:59→22:44)
[2017-06-15] MEDS: Budesonide/Formoterol 160/4.5 MDI IH SCH ×2 (08:02→19:47)
[2017-06-15] MEDS: Metoprolol XL (24 HR) Succ 50 MG TAB.ER.24H PO SCH ×2 (11:11→22:40)
[2017-06-15] MEDS: Clotrimazole 1% CRM 15 GM TUBE TP SCH ×2 (11:11→22:46)
[2017-06-15] MEDS: Vancomycin 1,250 MG in D5% in Water 250 ML IVPB SCH (11:21)
[2017-06-15] MEDS: *HR* OxyCODONE/APAP 5/325 TABLET PO PRN ×2 (14:11→20:25)
[2017-06-16] MEDS: *HR* LORazepam 0.5 MG TABLET PO PRN (02:05)
[2017-06-16] MEDS: Piperacillin/Tazobactam 3.375 GM/200 ML BAG IVPB SCH ×3 (02:34→18:48)
[2017-06-16] MEDS: *HR* OxyCODONE/APAP 5/325 TABLET PO PRN ×2 (02:34→22:18)
[2017-06-16] MEDS: Ipratropium/Albuterol Neb 3 ML IH SCH ×5 (03:50→19:59)
[2017-06-16 05:06] LABS: Basophils % 0.2 %; Hematocrit 32.8 % (35.3-44.9); Hemoglobin 10.3 g/dL (11.5-15.4); Immature Granulocytes % 1.2 % (0-4); Lymphocytes # 0.8 K/mcL (0.6-4.6); Lymphocytes % 5.3 %; Mean Corpuscular HGB Conc 31.4 g/dL (31.6-35.5); Mean Corpuscular Volume 92.4 fL (83.0-100.0); Mean Platelet Volume 11.1 fL (9.4-12.4); Monocytes # 0.6 K/mcL (0.0-1.3); Monocytes % 3.8 %; Neutrophils # 14.2 K/mcL (1.6-8.9); Platelet Count 226 K/mcL (140-400); Red Blood Count 3.55 M/mcL (3.82-4.97); Segmented Neutrophils % 89.5 %
[2017-06-16 05:09] LABS: Prothrombin Time 11.2 Seconds (9.4-12.1)
[2017-06-16 05:31] LABS: BUN/Creatinine Ratio 26 (6-26); Blood Urea Nitrogen 23 mg/dL (8-23); Calcium 8.5 mg/dL (8.6-10.3); Carbon Dioxide 34 mEq/L (23-29); Chloride 90 mEq/L (98-107); Glucose 104 mg/dL (70-105); Osmolality,Calculated 284 (280-300); Potassium 2.6 mEq/L (3.5-5.1); Sodium 135 mEq/L (136-145); eGFR For African Americans > 60 (> 60); eGFR For Non-African Americans > 60 (> 60)
[2017-06-16 05:38] LABS: Alanine Aminotransferase 17 Units/L (7-52); Albumin/Globulin Ratio 0.9 (1.1-2.2); Alkaline Phosphatase 43 Units/L (34-104); Aspartate Amino Transferase 25 Units/L (13-39); BUN/Creatinine Ratio 28 (6-26); Bilirubin,Total 0.4 mg/dL (0.3-1.0); Blood Urea Nitrogen 24 mg/dL (8-23); Calcium 8.4 mg/dL (8.6-10.3); Carbon Dioxide 35 mEq/L (23-29); Chloride 89 mEq/L (98-107); Globulin 3.4 g/dL (2.4-3.5); Glucose 105 mg/dL (70-105); Osmolality,Calculated 284 (280-300); Potassium 2.9 mEq/L (3.5-5.1); Sodium 135 mEq/L (136-145); Total Protein 6.4 g/dL (6.4-8.9); eGFR For African Americans > 60 (> 60); eGFR For Non-African Americans > 60 (> 60)
[2017-06-16] MEDS: *HR* Heparin 5,000 UNIT/ML VIAL SQ SCH ×2 (06:17→17:44)
[2017-06-16] MEDS: Budesonide/Formoterol 160/4.5 MDI IH SCH ×2 (07:25→19:59)
[2017-06-16] MEDS: Insulin LISPRO 300 UNITS/3 ML VIAL SQ SCH ×4 (08:37→22:17)
[2017-06-16] MEDS: FLUoxetine 20 MG CAPSULE PO SCH (08:38)
[2017-06-16] MEDS: Metoprolol XL (24 HR) Succ 50 MG TAB.ER.24H PO SCH ×2 (08:38→22:19)
[2017-06-16] MEDS: Furosemide 40 MG TABLET PO SCH ×2 (08:38→16:22)
[2017-06-16] MEDS: *HR* Amiodarone 200 MG TABLET PO SCH ×2 (08:38→22:17)
[2017-06-16] MEDS: Isosorbide MONOnitrate (24 HR) 60 MG TAB.ER.24H PO SCH (08:38)
[2017-06-16] MEDS: predniSONE 20 MG TABLET PO SCH (08:38)
[2017-06-16] MEDS: Aspirin Enteric Coated 81 MG Tablet PO SCH (08:38)
[2017-06-16] MEDS: Diltiazem CD (24hr) 120 MG CAPSULE PO SCH (08:39)
[2017-06-16] MEDS: Clotrimazole 1% CRM 15 GM TUBE TP SCH ×2 (09:00→22:18)
[2017-06-16] MEDS: Vancomycin 1,250 MG in D5% in Water 250 ML IVPB SCH (10:02)
[2017-06-16] MEDS: Insulin DETEMIR 100 UNIT/ML X5UNITS SQ SCH (11:04)
[2017-06-16] MEDS ORDERED: 0.9 % Sodium Chloride 250 ML ONE (12:03)
[2017-06-16] MEDS ORDERED: Potassium Chloride 40 MEQ, Lidocaine 1% 2 ML in D5% in Water 500 ML IVPB ONE (15:20)
[2017-06-16] MEDS ORDERED: Aminoglycoside Consult 1 EACH MC ONE (17:59)
--- NOTE | 2017-06-16 18:57 | Event Note ---
Date of Encounter: 06/16/17 Time of Encounter: 10:30 I examined this patient and my medical decision-making was reviewed with the Resident Physician on 06/16/17. I agree with the documented findings, disposition and treatment plan as described except to the extent set forth below. Ms Evans is currently admitted for resp failure and rapid a fib. She remains moderate to high risk due to potential for worsening clinical status. Ms Evans feels very tired. Still with congestion in chest. Heart rate high in the morning. No fever. Coughing. Exam Alert. Congested Mucus membranes dry Heart irreg and tachy Lungs with rhonchi I/P 1. Acute hypoxic resp failure 2. Chronic a fib 3. CHF 4. CKD 5. HTN 6. CAD Further diagnoses and plan as per progress note of today.
[2017-06-16] MEDS: hydrOXYzine pamoate 25 MG CAPSULE PO PRN (22:19)
[2017-06-17] MEDS: Ipratropium/Albuterol Neb 3 ML IH SCH ×7 (00:03→23:07)
[2017-06-17] MEDS: Piperacillin/Tazobactam 3.375 GM/200 ML BAG IVPB SCH ×2 (00:57→11:38)
[2017-06-17 05:17] LABS: Basophils % 0.2 %; Hematocrit 28.2 % (35.3-44.9); Lymphocytes # 0.8 K/mcL (0.6-4.6); Lymphocytes % 7.1 %; Mean Corpuscular HGB Conc 31.9 g/dL (31.6-35.5); Mean Corpuscular Hemoglobin 29.3 pg (28.0-33.3); Mean Corpuscular Volume 91.9 fL (83.0-100.0); Mean Platelet Volume 10.8 fL (9.4-12.4); Monocytes # 0.9 K/mcL (0.0-1.3); Neutrophils # 9.7 K/mcL (1.6-8.9); Nucleated Red Blood Cells 0.2 /100 WBC (0); Platelet Count 194 K/mcL (140-400); Red Blood Count 3.07 M/mcL (3.82-4.97); Red Cell Distribution Width 15.9 % (11.5-14.5); Segmented Neutrophils % 83.7 %
[2017-06-17 05:32] LABS: Alanine Aminotransferase 13 Units/L (7-52); Albumin 2.7 g/dL (3.5-5.7); Albumin/Globulin Ratio 1.1 (1.1-2.2); Alkaline Phosphatase 37 Units/L (34-104); Aspartate Amino Transferase 14 Units/L (13-39); BUN/Creatinine Ratio 25 (6-26); Bilirubin,Total 0.4 mg/dL (0.3-1.0); Blood Urea Nitrogen 21 mg/dL (8-23); Carbon Dioxide 32 mEq/L (23-29); Chloride 94 mEq/L (98-107); Globulin 2.4 g/dL (2.4-3.5); Glucose 89 mg/dL (70-105); Osmolality,Calculated 284 (280-300); Potassium 3.1 mEq/L (3.5-5.1); Sodium 136 mEq/L (136-145); Total Protein 5.1 g/dL (6.4-8.9); eGFR For African Americans > 60 (> 60); eGFR For Non-African Americans > 60 (> 60)
[2017-06-17] MEDS: *HR* OxyCODONE/APAP 5/325 TABLET PO PRN ×3 (06:43→21:48)
[2017-06-17] MEDS: *HR* Heparin 5,000 UNIT/ML VIAL SQ SCH ×2 (06:43→16:33)
[2017-06-17] MEDS: Budesonide/Formoterol 160/4.5 MDI IH SCH ×2 (07:42→19:44)
[2017-06-17] MEDS: Insulin LISPRO 300 UNITS/3 ML VIAL SQ SCH ×4 (10:03→21:54)
[2017-06-17] MEDS: Aspirin Enteric Coated 81 MG Tablet PO SCH (10:18)
[2017-06-17] MEDS: Furosemide 40 MG TABLET PO SCH ×2 (10:18→17:42)
[2017-06-17] MEDS: *HR* Amiodarone 200 MG TABLET PO SCH ×2 (10:19→21:48)
[2017-06-17] MEDS: predniSONE 20 MG TABLET PO SCH (10:19)
[2017-06-17] MEDS: Diltiazem CD (24hr) 120 MG CAPSULE PO SCH (10:19)
[2017-06-17] MEDS: FLUoxetine 20 MG CAPSULE PO SCH (10:19)
[2017-06-17] MEDS: Isosorbide MONOnitrate (24 HR) 60 MG TAB.ER.24H PO SCH (10:19)
[2017-06-17] MEDS: Metoprolol XL (24 HR) Succ 50 MG TAB.ER.24H PO SCH ×2 (10:20→21:49)
[2017-06-17] MEDS ORDERED: Hyoscyamine SL 0.125 MG TAB.SUBL SL PRN (10:40)
[2017-06-17] MEDS: Clotrimazole 1% CRM 15 GM TUBE TP SCH ×2 (11:39→21:49)
[2017-06-17] MEDS: Vancomycin 1,250 MG in D5% in Water 250 ML IVPB SCH (11:58)
[2017-06-17] MEDS: Insulin DETEMIR 100 UNIT/ML X5UNITS SQ SCH (12:01)
[2017-06-17] MEDS ORDERED: Hyoscyamine SL 0.125 MG TAB.SUBL SL ONE (12:53)
--- NOTE | 2017-06-17 14:41 | Internal Med Progress Note ---
<Raza Garcia - Last Filed: 06/17/17 17:20> Date of Encounter: 06/17/17 Time of Encounter: 10:00 - Assessment and plan (1) Acute and chronic respiratory failure with hypoxia Current Visit: Yes Status: Acute Assessment and plan: Improving. Secondary to COPDE, CHF exacerbation. Continues to have bronchial congestion. - Currently on home level of 3L - Continue rate control per cardiology - discontinue antibiotics - Continue 40 mg by mouth Lasix twice a day, home dose. - Continue prednisone 40 mg by mouth daily (day 4/5) - Continue bronchodilators - Dose of Levsid tonigh - Respiratory consult for pulmonary therapy (2) Atrial fibrillation with rapid ventricular response Current Visit: Yes Status: Acute Assessment and plan: Secondary to COPD exacerbation and diastolic heart failure exacerbation. Rate controlled. Plan: - Cardiology on board to assist with rate control. - Cardizem CD 240 by mouth daily - Amiodarone 200 mg by mouth twice a day - Metoprolol XL 100 mg by mouth twice a day - Patient unable to be anti-coagulated outside of aspirin 81 mg secondary to GI bleeding history. Risks of stroke have been discussed with patient. (3) CKD (chronic kidney disease) Current Visit: No Status: Chronic Assessment and plan: Stable chronic kidney disease stage III - Avoid nephrotoxic medications and renally dose antibiotics Qualifiers: Chronic kidney disease stage: stage 3 (moderate) Qualified Code(s): N18.3 - Chronic kidney disease, stage 3 (moderate) (4) Diastolic CHF Current Visit: No Status: Acute Assessment and plan: resolved. Continue maintenance therapy Plan: - 40 mg by mouth Lasix twice a day - Fluid restrictions, sodium restrictions and daily weights as discussed above - Wean oxygen as tolerated, monitor rate and rhythm - Continue Imdur Qualifiers: Congestive heart failure chronicity: acute on chronic Qualified Code(s): I50.33 - Acute on chronic diastolic (congestive) heart failure (5) Hyperglycemia Current Visit: Yes Status: Acute Assessment and plan: No documentation of previous diabetes. Continues to have hyperglycemia with glucoses up to 450. Will obtain hemoglobin A1c, place on a [facility] protocol. Plan: - Increase Levemir to 8 units every morning - Medium dose sliding scale (6) DVT prophylaxis Current Visit: No Status: Acute Assessment and plan: Subcutaneous heparin Code(s): [id number] - - Subjective Interval history: Mrs. Evans has been seen and evaluated at bedside. She is awake alert and interactive no acute distress. She is feeling well without complaint today. She denies any chest pressure, tightness or congestion. No acute events over night. - Constitutional Vitals: Temp Pulse Resp BP Pulse Ox 98.1 F 98 17 124/73 95 06/17/17 11:27 06/17/17 11:27 06/17/17 11:27 06/17/17 11:27 06/17/17 11:27 General appearance: Present: A&O X 3, pleasant, answers questions appropriately Exam: General: Patient alert, awake, oriented 3, interactive, no acute distress HEENT: Normocephalic, atraumatic, pupils equal reactive to light, nasal cavity patent and open septum median position, oral mucosa moist, uvula midline, neck supple trachea midline no palpable lymphadenopathy, no thyromegaly. Chest: Symmetric bilateral correlating with respiratory effort, effort nonlabored. Cardiac: Irregularly irregular heart rate and rhythm. no bruits appreciated bilateral carotids, Radial pulses 2+ bilateral, posterior tibial and dorsal pedal pulses 2+ bilateral. Respiratory: Bronchial congestion appreciated upon auscultation, clear to auscultation in all lung rueda Abdomen: Soft, nontender, positive bowel sounds, no palpable masses appreciated on examination Extremities: Symmetric bilateral, bilateral lower extremities without erythema or edema patient moving all 4 extremities spontaneously. Neurologic: No focal deficits appreciated on examination. Face symmetric, muscle strength symmetric bilateral upper and lower extremities. Internal Medicine: Result - Labs CBC & Chem 7: 06/17/17 04:34 06/17/17 04:34 Labs: Short CBC 06/17/17 Range/Units 04:34 WBC 11.6 H (4.3-11.1) K/mcL Hgb 9.0 L (11.5-15.4) g/dL Hct 28.2 L (35.3-44.9) % Plt Count 194 (140-400) K/mcL Neutrophils # 9.7 H (1.6-8.9) K/mcL BMP 06/17/17 04:34 Sodium 136 Potassium 3.1 L Chloride 94 L Carbon Dioxide 32 H BUN 21 Creatinine 0.84 Glucose 89 Calcium 8.0 L Liver Function 06/17/17 Range/Units 04:34 Total Bilirubin 0.4 (0.3-1.0) mg/dL AST 14 (13-39) Units/L ALT 13 (7-52) Units/L Alkaline Phosphatase 37 (34-104) Units/L Albumin 2.7 L (3.5-5.7) g/dL - ABG Interpretation ABG results: ABG ABG pH 7.57 pH Units (7.32-7.45) H 06/12/17 11:14 ABG pCO2 35 mmHg (35-45) 06/12/17 11:14 ABG pO2 75 mmHg (85-104) L 06/12/17 11:14 ABG O2 Saturation 97 % (95-98) 06/12/17 11:14 PT/INR, D-dimer PT 11.2 Seconds (9.4-12.1) 06/16/17 04:20 - VTE Documentation of Mechanical Device: Graduated compression elastic hosiery Consult Discharge Plan - Plan Referrals: Tamiko Keys CNP [Primary Care Provider] - 06/15/17 10:35 am Adis Rey MD [Partnered Physician] - 06/15/17 1:45 pm Aubrey Torres MD [Partnered Physician] - 06/24/17 11:30 am <Carlos Wills A - Last Filed: 06/17/17 19:07> Date of Encounter: 06/17/17 - Assessment and plan (1) Acute and chronic respiratory failure with hypoxia Current Visit: Yes Status: Acute (2) Atrial fibrillation Current Visit: No Status: Chronic Qualifiers: Atrial fibrillation type: persistent Qualified Code(s): I48.1 - Persistent atrial fibrillation (3) CHF exacerbation Current Visit: No Status: Acute Qualifiers: Congestive heart failure type: diastolic Qualified Code(s): I50.33 - Acute on chronic diastolic (congestive) heart failure (4) CKD (chronic kidney disease) Current Visit: No Status: Chronic Qualifiers: Chronic kidney disease stage: stage 3 (moderate) Qualified Code(s): N18.3 - Chronic kidney disease, stage 3 (moderate) (5) Hypertension Current Visit: No Status: Chronic Qualifiers: Hypertension type: essential hypertension Qualified Code(s): I10 - Essential (primary) hypertension (6) CAD (coronary artery disease) Current Visit: No Status: Chronic Qualifiers: Coronary Disease-Associated Artery/Lesion type: bypass graft [place] vs. transplanted heart: [place] heart Associated angina: without angina Qualified Code(s): I25.810 - Atherosclerosis of coronary artery bypass graft(s) without angina pectoris - Constitutional Vitals: Temp Pulse Resp BP Pulse Ox 98.1 F 86 15 113/63 92 06/17/17 16:14 06/17/17 16:14 06/17/17 16:14 06/17/17 16:14 06/17/17 16:14 Internal Medicine: Result - Labs CBC & Chem 7: 06/17/17 04:34 06/17/17 04:34 Labs: Short CBC 06/17/17 Range/Units 04:34 WBC 11.6 H (4.3-11.1) K/mcL Hgb 9.0 L (11.5-15.4) g/dL Hct 28.2 L (35.3-44.9) % Plt Count 194 (140-400) K/mcL Neutrophils # 9.7 H (1.6-8.9) K/mcL BMP 06/17/17 04:34 Sodium 136 Potassium 3.1 L Chloride 94 L Carbon Dioxide 32 H BUN 21 Creatinine 0.84 Glucose 89 Calcium 8.0 L Liver Function 06/17/17 Range/Units 04:34 Total Bilirubin 0.4 (0.3-1.0) mg/dL AST 14 (13-39) Units/L ALT 13 (7-52) Units/L Alkaline Phosphatase 37 (34-104) Units/L Albumin 2.7 L (3.5-5.7) g/dL - ABG Interpretation ABG results: ABG ABG pH 7.57 pH Units (7.32-7.45) H 06/12/17 11:14 ABG pCO2 35 mmHg (35-45) 06/12/17 11:14 ABG pO2 75 mmHg (85-104) L 06/12/17 11:14 ABG O2 Saturation 97 % (95-98) 06/12/17 11:14 PT/INR, D-dimer PT 11.2 Seconds (9.4-12.1) 06/16/17 04:20 - Attending Attestation I examined this patient and my medical decision-making was reviewed with the Resident Physician on 06/17/17. I agree with the documented findings, disposition and treatment plan as described except to the extent set forth below. Ms Evans is currently admitted for resp failure and rapid a fib. She remains moderate to high risk due to potential for worsening clinical status. Ms Evans is up in chair. She still has a lot of chest congestion. No fever. Can't mobilize sputum well. Exam alert. Comfortable Heart irreg and not tachy Lungs with rhonchi Abd soft I/P 1. Resp failure 2. A fib Further diagnoses and plan as above.
[2017-06-17] MEDS ORDERED: GuaiFENesin Liq 200 MG/10 ML UDC PO PRN (15:25)
[2017-06-17 16:49] LABS: Hemoglobin A1C 6.7 %
[2017-06-17] MEDS: hydrOXYzine pamoate 25 MG CAPSULE PO PRN (21:47)
[2017-06-18] MEDS: *HR* LORazepam 0.5 MG TABLET PO PRN (02:31)
[2017-06-18 04:05] LABS: Basophils % 0.1 %; Hematocrit 28.5 % (35.3-44.9); Hemoglobin 8.9 g/dL (11.5-15.4); Lymphocytes # 0.6 K/mcL (0.6-4.6); Lymphocytes % 5.1 %; Mean Corpuscular HGB Conc 31.2 g/dL (31.6-35.5); Mean Corpuscular Hemoglobin 29.2 pg (28.0-33.3); Mean Corpuscular Volume 93.4 fL (83.0-100.0); Mean Platelet Volume 10.8 fL (9.4-12.4); Monocytes # 0.8 K/mcL (0.0-1.3); Monocytes % 6.1 %; Neutrophils # 11.1 K/mcL (1.6-8.9); Platelet Count 197 K/mcL (140-400); Red Blood Count 3.05 M/mcL (3.82-4.97); Segmented Neutrophils % 87.7 %
[2017-06-18] MEDS: Ipratropium/Albuterol Neb 3 ML IH SCH ×6 (04:11→23:26)
[2017-06-18 04:27] LABS: Alanine Aminotransferase 17 Units/L (7-52); Albumin 2.8 g/dL (3.5-5.7); Albumin/Globulin Ratio 1.1 (1.1-2.2); Alkaline Phosphatase 41 Units/L (34-104); Aspartate Amino Transferase 23 Units/L (13-39); BUN/Creatinine Ratio 25 (6-26); Bilirubin,Total 0.4 mg/dL (0.3-1.0); Blood Urea Nitrogen 24 mg/dL (8-23); Calcium 8.2 mg/dL (8.6-10.3); Carbon Dioxide 35 mEq/L (23-29); Chloride 95 mEq/L (98-107); Globulin 2.6 g/dL (2.4-3.5); Glucose 98 mg/dL (70-105); Osmolality,Calculated 286 (280-300); Potassium 3.8 mEq/L (3.5-5.1); Sodium 136 mEq/L (136-145); Total Protein 5.4 g/dL (6.4-8.9); eGFR For African Americans > 60 (> 60); eGFR For Non-African Americans 56 (> 60)
[2017-06-18] MEDS: *HR* Heparin 5,000 UNIT/ML VIAL SQ SCH (05:31)
[2017-06-18] MEDS: *HR* OxyCODONE/APAP 5/325 TABLET PO PRN ×2 (05:31→12:30)
[2017-06-18] MEDS: Budesonide/Formoterol 160/4.5 MDI IH SCH ×2 (08:08→20:17)
[2017-06-18] MEDS: Insulin LISPRO 300 UNITS/3 ML VIAL SQ SCH ×2 (08:48→12:11)
[2017-06-18] MEDS: FLUoxetine 20 MG CAPSULE PO SCH (08:52)
[2017-06-18] MEDS: Metoprolol XL (24 HR) Succ 50 MG TAB.ER.24H PO SCH (08:52)
[2017-06-18] MEDS: Isosorbide MONOnitrate (24 HR) 60 MG TAB.ER.24H PO SCH (08:52)
[2017-06-18] MEDS: Aspirin Enteric Coated 81 MG Tablet PO SCH (08:52)
[2017-06-18] MEDS: predniSONE 20 MG TABLET PO SCH (08:52)
[2017-06-18] MEDS: *HR* Amiodarone 200 MG TABLET PO SCH (08:52)
[2017-06-18] MEDS: Furosemide 40 MG TABLET PO SCH ×2 (08:55→17:33)
[2017-06-18] MEDS: Diltiazem CD (24hr) 120 MG CAPSULE PO SCH (08:55)
[2017-06-18] MEDS ORDERED: Insulin DETEMIR 100 UNIT/ML X5UNITS SQ SCH (09:00)
--- NOTE | 2017-06-18 11:19 | Internal Med Progress Note ---
Date of Encounter: 06/18/17 Time of Encounter: 11:19 - Assessment and plan (1) Acute and chronic respiratory failure with hypoxia Current Visit: Yes Status: Acute Assessment and plan: Improving. Secondary to COPDE, CHF exacerbation. Continues to have bronchial congestion. - Currently on home level of 3L - Continue rate control per cardiology - discontinue antibiotics - Continue 40 mg by mouth Lasix twice a day, home dose. - Continue prednisone 40 mg by mouth daily (day 4/5) - Continue bronchodilators - Dose of Levsid tonigh - Respiratory consult for pulmonary therapy (2) Atrial fibrillation with rapid ventricular response Current Visit: Yes Status: Acute Assessment and plan: Secondary to COPD exacerbation and diastolic heart failure exacerbation. Rate controlled. Plan: - Cardiology on board to assist with rate control. - Cardizem CD 240 by mouth daily - Amiodarone 200 mg by mouth twice a day - Metoprolol XL 100 mg by mouth twice a day - Patient unable to be anti-coagulated outside of aspirin 81 mg secondary to GI bleeding history. Risks of stroke have been discussed with patient. (3) CKD (chronic kidney disease) Current Visit: No Status: Chronic Assessment and plan: Stable chronic kidney disease stage III - Avoid nephrotoxic medications and renally dose antibiotics Qualifiers: Chronic kidney disease stage: stage 3 (moderate) Qualified Code(s): N18.3 - Chronic kidney disease, stage 3 (moderate) (4) Diastolic CHF Current Visit: No Status: Acute Assessment and plan: resolved. Continue maintenance therapy Plan: - 40 mg by mouth Lasix twice a day - Fluid restrictions, sodium restrictions and daily weights as discussed above - Wean oxygen as tolerated, monitor rate and rhythm - Continue Imdur Qualifiers: Congestive heart failure chronicity: acute on chronic Qualified Code(s): I50.33 - Acute on chronic diastolic (congestive) heart failure (5) Hyperglycemia Current Visit: Yes Status: Acute Assessment and plan: No documentation of previous diabetes. Continues to have hyperglycemia with glucoses up to 450. Will obtain hemoglobin A1c, place on a [facility] protocol. Plan: - Increase Levemir to 8 units every morning - Medium dose sliding scale (6) DVT prophylaxis Current Visit: No Status: Acute Assessment and plan: Subcutaneous heparin Code(s): [id number] - - Subjective Interval history: Mrs. Evans has been seen and evaluated at bedside. She is awake alert and interactive no acute distress. She is feeling well without complaint today. She denies any chest pressure, tightness or congestion. No acute events over night. - Constitutional Vitals: Temp Pulse Resp BP Pulse Ox 97.9 F 88 16 110/60 96 06/18/17 07:22 06/18/17 07:22 06/18/17 08:07 06/18/17 07:22 06/18/17 08:07 General appearance: Present: A&O X 3, pleasant, answers questions appropriately Internal Medicine: Result - Labs CBC & Chem 7: 06/18/17 03:27 06/18/17 03:27 Labs: Short CBC 06/18/17 Range/Units 03:27 WBC 12.6 H (4.3-11.1) K/mcL Hgb 8.9 L (11.5-15.4) g/dL Hct 28.5 L (35.3-44.9) % Plt Count 197 (140-400) K/mcL Neutrophils # 11.1 H (1.6-8.9) K/mcL BMP 06/18/17 03:27 Sodium 136 Potassium 3.8 Chloride 95 L Carbon Dioxide 35 H BUN 24 H Creatinine 0.95 Glucose 98 Calcium 8.2 L Liver Function 06/18/17 Range/Units 03:27 Total Bilirubin 0.4 (0.3-1.0) mg/dL AST 23 (13-39) Units/L ALT 17 (7-52) Units/L Alkaline Phosphatase 41 (34-104) Units/L Albumin 2.8 L (3.5-5.7) g/dL - ABG Interpretation ABG results: ABG ABG pH 7.57 pH Units (7.32-7.45) H 06/12/17 11:14 ABG pCO2 35 mmHg (35-45) 06/12/17 11:14 ABG pO2 75 mmHg (85-104) L 06/12/17 11:14 ABG O2 Saturation 97 % (95-98) 06/12/17 11:14 PT/INR, D-dimer PT 11.2 Seconds (9.4-12.1) 06/16/17 04:20 - VTE Documentation of Mechanical Device: Graduated compression elastic hosiery Consult Discharge Plan - Plan Referrals: Tamiko Keys CNP [Primary Care Provider] - 06/15/17 10:35 am Adis Rey MD [Partnered Physician] - 06/15/17 1:45 pm Aubrey Torres MD [Partnered Physician] - 06/24/17 11:30 am
[2017-06-18 11:49] VITALS: BP 105/59
[2017-06-18] MEDS ORDERED: Scopolamine Patch 1.5 MG PATCH.TD72 TD SCH (13:30)
--- NOTE | 2017-06-18 15:29 | Discharge Summary ---
<Raza Garcia - Last Filed: 06/18/17 15:42> Date of Encounter: 06/18/17 Time of Encounter: 15:25 - Discharge Diagnosis (1) Acute and chronic respiratory failure with hypoxia Priority: Primary Status: Acute (2) Atrial fibrillation with rapid ventricular response Priority: Primary Status: Acute (3) CKD (chronic kidney disease) Priority: Secondary Status: Chronic Qualifiers: Chronic kidney disease stage: stage 3 (moderate) Qualified Code(s): N18.3 - Chronic kidney disease, stage 3 (moderate) (4) Diastolic CHF Priority: Secondary Status: Acute Qualifiers: Congestive heart failure chronicity: acute on chronic Qualified Code(s): I50.33 - Acute on chronic diastolic (congestive) heart failure (5) Hyperglycemia Priority: Secondary Status: Acute (6) DVT prophylaxis Priority: Secondary Status: Acute Code(s): OAS0939 - - Discharge Medications Prescriptions: Amiodarone [Cordarone] 200 mg PO BID #30 tablet Diltiazem CD (24hr) [Cardizem CD] 240 mg PO QAM #60 cap.er.24h LORazepam [Ativan] 0.5 mg PO BID PRN #8 tablet PRN Reason: Anxiety Metoprolol XL (24 HR) Succ [Toprol Xl] 125 mg PO BID #90 tab.er.24h Oxycodone HCl/Acetaminophen [Percocet 5-325 mg Tablet] 1 each PO Q8H PRN #6 tablet PRN Reason: Pain Home Medications: Aspirin [Adult Low Dose Aspirin EC] 81 mg PO QAM 12/29/14 [History] Docusate [Colace] 100 mg PO BID 12/29/14 [History] FLUoxetine HCl [Prozac] 20 mg PO QAM 12/29/14 [History] Nitroglycerin [Nitrostat] 0.4 mg SL Q5M PRN 12/29/14 [History] Simvastatin [Zocor] 20 mg PO HS 12/29/14 [History] Pantoprazole Sodium [Protonix] 40 mg PO QAM 06/10/15 [History] Albuterol Sulfate [Albuterol Inhaler] 2 puff IH Q4HR PRN 04/26/17 [History] Budesonide/Formoterol 160/4.5 [Symbicort 160/4.5] 2 puff IH QAM 05/19/17 [ History] Isosorbide MONOnitrate (24 HR) [Imdur] 60 mg PO QAM 05/19/17 [History] Pramipexole Di-HCl [Pramipexole Dihydrochloride] 0.5 mg PO HS 05/19/17 [History] hydrOXYzine HCl [Hydroxyzine HCl] 25 mg PO HS PRN 05/19/17 [History] metOLazone [Zaroxolyn] 5 mg PO QAM 05/19/17 [History] Furosemide [Lasix] 40 mg PO BID 06/06/17 [History] Ipratropium/Albuterol Neb [Duoneb] 3 ml IH 0800,2000 06/06/17 [History] Ipratropium/Albuterol Neb [Duoneb] 3 ml IH Q4H PRN 06/06/17 [History] Lactose-Reduced Food [Ensure Liquid] 1 bottle PO TIDWM 06/06/17 [History] Oxygen 3 l NS CONT 06/06/17 [History] Potassium Chloride 40 meq PO QAM 06/06/17 [History] Amiodarone [Cordarone] 200 mg PO BID #30 tablet 06/18/17 [Rx] Diltiazem CD (24hr) [Cardizem CD] 240 mg PO QAM #60 cap.er.24h 06/18/17 [Rx] LORazepam [Ativan] 0.5 mg PO BID PRN #8 tablet 06/18/17 [Rx] Metoprolol XL (24 HR) Succ [Toprol Xl] 125 mg PO BID #90 tab.er.24h 06/18/17 [Rx ] Oxycodone HCl/Acetaminophen [Percocet 5-325 mg Tablet] 1 each PO Q8H PRN #6 tablet 06/18/17 [Rx] Allergies/Adverse Reactions: 3 Allergy/AdvReac Type Severity Reaction Status Date / Time Sulfa (Sulfonamide AdvReac Nausea Verified 10/20/16 14:06 Antibiotics) Date of admission: 06/06/17 17:25 Primary care physician: Tamiko Keys CNP Consults: 06/07/17 11:40 Consult to Machinist Instructor [CONS] Routine Reason for SW Consult: From [facility] 06/08/17 10:58 Consult to Physical Therapy [CONS] Routine Comment: Evaluate, develop and implement POC Reason for Consult: Return to ECF 06/08/17 10:59 Consult to Occupational Therapy [CONS] Routine Comment: Evaluate, develop and implement POC Reason for Consult: Return to ECF 06/10/17 15:35 Consult to Speech Therapy [CONS] Routine Comment: Evaluate, develop and implement POC Reason for Consult: potential aspiration Call Completed: Yes 06/11/17 15:47 Consult to Cardiology [CONS] Routine Comment: Consulting Provider: Cardiology Olivia Reason for Consult: Rate control Call Completed: Yes 06/14/17 10:39 Consult to Respiratory Therapy [CONS] Routine Reason for Consult: Please provide patient with acapella Call Completed: Yes 06/17/17 14:30 Consult to Respiratory Therapy [CONS] Routine Reason for Consult: pulmonary percution Call Completed: Yes Discharging clinician: Raza Garcia Anticipated date of discharge: 06/18/17 - Patient Status Disposition: Transfer Other Condition: Fair Functional capacity at discharge: uses cane/walker Overall status at discharge: patient is progressing back to baseline - Discharge Instructions Follow Up With: Tamiko Keys CNP [Primary Care Provider] - 06/15/17 10:35 am Adis Rey MD [Partnered Physician] - 06/15/17 1:45 pm Aubrey Torres MD [Partnered Physician] - 06/24/17 11:30 am Additional Instructions: Follow up with PCP in the next 3-5 days for post hospital evaluation take medications as prescribed - Diet and Activity Activity: as per physical therapy Diet: advance to your usual diet Hospital course: Ms. Evans is a 86 year old female - Time Spent with Patient Total time spent providing and/or coordinating discharge services: - Constitutional Vitals: Temp Pulse Resp BP Pulse Ox 98.1 F 95 16 105/59 96 06/18/17 11:45 06/18/17 11:45 06/18/17 11:45 06/18/17 11:45 06/18/17 11:45 General appearance: Present: A&O X 3, pleasant, answers questions appropriately Exam: General: Patient alert, awake, oriented 3, interactive, no acute distress HEENT: Normocephalic, atraumatic, pupils equal reactive to light, nasal cavity patent and open septum median position, oral mucosa moist, uvula midline, neck supple trachea midline no palpable lymphadenopathy, no thyromegaly. Chest: Symmetric bilateral correlating with respiratory effort, effort nonlabored. Cardiac: Irregularly irregular heart rate and rhythm. no bruits appreciated bilateral carotids, Radial pulses 2+ bilateral, posterior tibial and dorsal pedal pulses 2+ bilateral. Respiratory: clear to auscultation in all lung rueda Abdomen: Soft, nontender, positive bowel sounds, no palpable masses appreciated on examination Extremities: Symmetric bilateral, bilateral lower extremities without erythema or edema patient moving all 4 extremities spontaneously. Neurologic: No focal deficits appreciated on examination. Face symmetric, muscle strength symmetric bilateral upper and lower extremities. - VTE Documentation of Mechanical Device: Graduated compression elastic hosiery <Carlos Wills - Last Filed: 06/18/17 19:20> Date of Encounter: 06/18/17 - Discharge Diagnosis (1) Acute and chronic respiratory failure with hypoxia Status: Acute (2) Atrial fibrillation Status: Chronic Qualifiers: Atrial fibrillation type: persistent Qualified Code(s): I48.1 - Persistent atrial fibrillation (3) CHF exacerbation Status: Acute Qualifiers: Congestive heart failure type: diastolic Qualified Code(s): I50.33 - Acute on chronic diastolic (congestive) heart failure (4) CKD (chronic kidney disease) Status: Chronic Qualifiers: Chronic kidney disease stage: stage 3 (moderate) Qualified Code(s): N18.3 - Chronic kidney disease, stage 3 (moderate) (5) Hypertension Status: Chronic Qualifiers: Hypertension type: essential hypertension Qualified Code(s): I10 - Essential (primary) hypertension (6) CAD (coronary artery disease) Status: Chronic Qualifiers: Coronary Disease-Associated Artery/Lesion type: bypass graft [place] vs. transplanted heart: [place] heart Associated angina: without angina Qualified Code(s): I25.810 - Atherosclerosis of coronary artery bypass graft(s) without angina pectoris Date of admission: 06/06/17 17:25 Primary care physician: Tamiko Keys CNP Consults: 06/07/17 11:40 Consult to Machinist Instructor [CONS] Routine Reason for SW Consult: From [facility] 06/08/17 10:58 Consult to Physical Therapy [CONS] Routine Comment: Evaluate, develop and implement POC Reason for Consult: Return to ECF 06/08/17 10:59 Consult to Occupational Therapy [CONS] Routine Comment: Evaluate, develop and implement POC Reason for Consult: Return to ECF 06/10/17 15:35 Consult to Speech Therapy [CONS] Routine Comment: Evaluate, develop and implement POC Reason for Consult: potential aspiration Call Completed: Yes 06/11/17 15:47 Consult to Cardiology [CONS] Routine Comment: Consulting Provider: Tan Baker Reason for Consult: Rate control Call Completed: Yes 06/14/17 10:39 Consult to Respiratory Therapy [CONS] Routine Reason for Consult: Please provide patient with acapella Call Completed: Yes 06/17/17 14:30 Consult to Respiratory Therapy [CONS] Routine Reason for Consult: pulmonary percution Call Completed: Yes Hospital course: Ms. Evans is a 86 year old female - Time Spent with Patient Total time spent providing and/or coordinating discharge services: 38min - Constitutional Vitals: Temp Pulse Resp BP Pulse Ox 98.1 F 95 16 105/59 96 06/18/17 11:45 06/18/17 11:45 06/18/17 16:05 06/18/17 16:05 06/18/17 16:05 - Attending Attestation I examined this patient and my medical decision-making was reviewed with the Resident Physician on 06/18/17. I agree with the documented findings, disposition and treatment plan as described except to the extent set forth below. Ms Evans has been admitted for acute resp failure and rapid a fib. She continued to have significant secretions which seemed somewhat better today. She is afebrile and ready for discharge to SNF. Exam Alert. Comfortable Mucus membranes dry Heart irreg Scant rhonchi heard Plan D/C to SNF today.
--- NOTE | 2017-06-18 16:50 | Physician Discharge Referral ---
ExtendedCare Referral Info Transfer To: [facility] Provider in Charge after Transfer: PCP Institutional Level of Care: Skilled - Diagnosis (1) Acute and chronic respiratory failure with hypoxia Priority: Primary Status: Acute (2) Atrial fibrillation Priority: Secondary Status: Chronic (3) CHF exacerbation Priority: Primary Status: Acute (4) CKD (chronic kidney disease) Priority: Secondary Status: Chronic (5) Hypertension Priority: Secondary Status: Chronic (6) CAD (coronary artery disease) Priority: Secondary Status: Chronic Prognosis: Fair Aware of Diagnosis: Patient, Family Aware of Prognosis: Patient, Family - Transfer Medications Prescriptions: Amiodarone [Cordarone] 200 mg PO BID #30 tablet Diltiazem CD (24hr) [Cardizem CD] 240 mg PO QAM #60 cap.er.24h LORazepam [Ativan] 0.5 mg PO BID PRN #8 tablet PRN Reason: Anxiety Metoprolol XL (24 HR) Succ [Toprol Xl] 125 mg PO BID #90 tab.er.24h Oxycodone HCl/Acetaminophen [Percocet 5-325 mg Tablet] 1 each PO Q8H PRN #6 tablet PRN Reason: Pain Home Medications: Aspirin [Adult Low Dose Aspirin EC] 81 mg PO QAM 12/29/14 [History] Docusate [Colace] 100 mg PO BID 12/29/14 [History] FLUoxetine HCl [Prozac] 20 mg PO QAM 12/29/14 [History] Nitroglycerin [Nitrostat] 0.4 mg SL Q5M PRN 12/29/14 [History] Simvastatin [Zocor] 20 mg PO HS 12/29/14 [History] Pantoprazole Sodium [Protonix] 40 mg PO QAM 06/10/15 [History] Albuterol Sulfate [Albuterol Inhaler] 2 puff IH Q4HR PRN 04/26/17 [History] Budesonide/Formoterol 160/4.5 [Symbicort 160/4.5] 2 puff IH QAM 05/19/17 [ History] Isosorbide MONOnitrate (24 HR) [Imdur] 60 mg PO QAM 05/19/17 [History] Pramipexole Di-HCl [Pramipexole Dihydrochloride] 0.5 mg PO HS 05/19/17 [History] hydrOXYzine HCl [Hydroxyzine HCl] 25 mg PO HS PRN 05/19/17 [History] metOLazone [Zaroxolyn] 5 mg PO QAM 05/19/17 [History] Furosemide [Lasix] 40 mg PO BID 06/06/17 [History] Ipratropium/Albuterol Neb [Duoneb] 3 ml IH 0800,2000 06/06/17 [History] Ipratropium/Albuterol Neb [Duoneb] 3 ml IH Q4H PRN 06/06/17 [History] Lactose-Reduced Food [Ensure Liquid] 1 bottle PO TIDWM 06/06/17 [History] Oxygen 3 l NS CONT 06/06/17 [History] Potassium Chloride 40 meq PO QAM 06/06/17 [History] Amiodarone [Cordarone] 200 mg PO BID #30 tablet 06/18/17 [Rx] Diltiazem CD (24hr) [Cardizem CD] 240 mg PO QAM #60 cap.er.24h 06/18/17 [Rx] LORazepam [Ativan] 0.5 mg PO BID PRN #8 tablet 06/18/17 [Rx] Metoprolol XL (24 HR) Succ [Toprol Xl] 125 mg PO BID #90 tab.er.24h 06/18/17 [Rx ] Oxycodone HCl/Acetaminophen [Percocet 5-325 mg Tablet] 1 each PO Q8H PRN #6 tablet 06/18/17 [Rx] Allergies/Adverse Reactions: 3 Allergy/AdvReac Type Severity Reaction Status Date / Time Sulfa (Sulfonamide AdvReac Nausea Verified 10/20/16 14:06 Antibiotics) - Respiratory Orders Oxygen / L per min (Maintain saturation 88-92%) Smoking Cessation: Smoking cessation has been advised. For more information, call the [place] Tobacco Quit Line at 0-200-ECBT-NOW. - Ancillary Orders May use pressure relief devices daily prn, May consult with Dentist, Behaviour Support Teacher, Spice Cleaner PRN - Advance Directives Code Status: DNR-Arrest/Don't Intubate - Mobility Orders Ambulate - Rehabiliation Orders Rehab Potential: Fair Rehab Orders: Evaluation for Physical Therapy, Evaluation for Occupational Therapy - Diet Orders No Added Salt (LM), No Concentrated Sweets, Cardiac CERTIFICATION: I certify that the transfer of the above named patient to an Extended Care Facility is necessary for the continuing treatment of the diagnosis listed. The above information is true and accurate reflection of patient's current condition. Confidential - Redisclosure prohibited without a patient's written consent.
[2017-06-18] MEDS: Clotrimazole 1% CRM 15 GM TUBE TP SCH (17:30)
== END 2017-06-18 18:00 | disposition other institution (70) | DRG 189 ==
LOC: 2NENU 10:41 → EMEROO 10:41 → 2NENU 14:10 → SUATTDRO 17:25 → 2NNU 06-12 11:04 → 2NENU 06-15 14:05
PROVIDERS: ADMIT Internal Medicine; ATTEND Internal Medicine

== ENCOUNTER 2017-08-11 14:26 | Inpatient (IN) ==
[~2017-08-11 14:26] MED LIST: *HR* Atropine Sulfate 1 MG/10 ML SYRINGE IV ONE; *HR* EPINEPHrine 1 MG/10 ML SYRINGE IVP ONE
[2017-08-11 14:58] LABS: Basophils # 0.1 K/mcL (0.0-0.2); Basophils % 0.5 %; Eosinophils # 0.2 K/mcL (0.0-0.6); Eosinophils % 1.3 %; Hematocrit 31.5 % (35.3-44.9); Hemoglobin 9.6 g/dL (11.5-15.4); Immature Granulocytes % 0.9 % (0-4); Lymphocytes # 2.1 K/mcL (0.6-4.6); Lymphocytes % 16.3 %; Mean Corpuscular HGB Conc 30.5 g/dL (31.6-35.5); Mean Corpuscular Volume 95.2 fL (83.0-100.0); Mean Platelet Volume 9.9 fL (9.4-12.4); Monocytes # 1.1 K/mcL (0.0-1.3); Monocytes % 8.7 %; Neutrophils # 9.3 K/mcL (1.6-8.9); Nucleated Red Blood Cells 0.4 /100 WBC (0); Platelet Count 364 K/mcL (140-400); Red Blood Count 3.31 M/mcL (3.82-4.97); Red Cell Distribution Width 15.9 % (11.5-14.5); Segmented Neutrophils % 72.3 %
[2017-08-11 15:19] LABS: Albumin 3.2 g/dL (3.5-5.7); Albumin/Globulin Ratio 0.9 (1.1-2.2); Bilirubin,Total 0.3 mg/dL (0.3-1.0); Calcium 9.1 mg/dL (8.6-10.3); Globulin 3.5 g/dL (2.4-3.5); Magnesium 2.7 mg/dL (1.6-2.6); Phosphorous 5.5 mg/dL (2.7-4.5); Total Protein 6.7 g/dL (6.4-8.9)
[2017-08-11 15:22] LABS: Troponin I 0.04 ng/mL (< 0.04)
[2017-08-11] MEDS ORDERED: Heparin 1,000 UNITS/500 mL 500 ML ONE (15:22)
[2017-08-11] MEDS: EPINEPHrine 1 MG in D5% in Water 250 ML IVC SCH (15:23)
--- NOTE | 2017-08-11 15:26 | Cardiology History & Physical ---
Date of Encounter: 08/11/17 Time of Encounter: 15:19 Assessment and Plan (1) Symptomatic bradycardia Current Visit: Yes Status: Acute The assessment and plan as outlined above was discussed with the patient and/or family members who expressed understanding and agreement. All questions were answered. Symptomatic bradycardia. HR 30's. Heart rate did not respond to atropine or epinephrine. Last TTE 05/2016-LVEF 50-55%. Normal LV chamber size, wall thickness and function. Atypical septal motion consistent with post-operative status. Indeterminate diastolic function. Normal right ventricular structure and function. Severe left atrial enlargement. Mild tricuspid regurgitation. No pulmonary hypertension. TV pacer indicated due to hypotension. component lab tech notified. Discussed with patient and family and they voiced understanding. Hold AV anuj miroslava. Check BMP. (2) Atrial fibrillation Current Visit: No Status: Chronic The assessment and plan as outlined above was discussed with the patient and/or family members who expressed understanding and agreement. All questions were answered. H/o PAF. Currently on toprol XL 25 mg daily, cardizem 240 mg daily, and amiodarone 200 mg daily. Denies recent medication change at [facility]. Hold AV anuj miroslava. Currently sinus bradycardia HR 30's with hypotension. She is on asa only due to history of bleeding. Qualifiers: Atrial fibrillation type: paroxysmal Qualified Code(s): I48.0 - Paroxysmal atrial fibrillation (3) CAD (coronary artery disease) Current Visit: No Status: Chronic The assessment and plan as outlined above was discussed with the patient and/or family members who expressed understanding and agreement. All questions were answered. Hx of CAD. Last [facility] 10/2015-- Patent ESTEVEZ to LAD. Occluded SVG to OM and Diagonal. Severe diffuse circumflex artery stenosis and in-stent restenosis ( small diseased distal vessel). On asa, statin. No BB secondary to bradycardia. Stress test 10/2016 negative for ischemia. Qualifiers: Coronary Disease-Associated Artery/Lesion type: bypass graft [place] vs. transplanted heart: [place] heart Associated angina: without angina Qualified Code(s): I25.810 - Atherosclerosis of coronary artery bypass graft(s) without angina pectoris History of Present Illness Chief complaint: weakness, presyncope HPI: Ms. Evans is a 87 year old female with past medical history of CAD with CABG and previous PCI, atrial fibrillation, GERD, hypertension, TIA/CVA, and COPD. She was sent to the ED from the cardiology office when she was found to have HR in the 30's. She currently resides at [facility] rehab facility. Evaluated with at bedside. She c/o feeling weak and tired all the time. She felt like she passed out one day ago while laying in bed. Describes sensation of falling while she was laying down. Denies chest pain. Denies orthopnea, PND, or edema. C /o nausea and vomiting that increased over last 24 hours. Says that she has chronic nausea related to her pain medication. Patient hospitalized one month ago for atrial fibrillation with RVR. Amiodarone started at that time. While in ED patient was given atropine and epi with no significant response in heart rate. B/p dropped into the 50's systolic. Epinephrine gtt was ordered by ER physician. B/p improving after epi bolus. Past Med Surg Social Fam HX - Past Medical History Medical history: GERD, atrial fibrillation, hyperlipidemia, arthritis, hypertension, osteoporosis, CVA, coronary artery disease, CHF, COPD Psychiatric history: anxiety, depression - Past Surgical History Surgical History: carotid endarterectomy, coronary bypass (CABG), orthopedic, other, angioplasty/stent, other, hysterectomy, appendectomy, LE stent (s), LE vascular intervention - Social History Smoking Status: Former smoker Smokeless Tobacco Status: No Alcohol use: none Drug use: none - Family History Mother Living Status: Hx Family Cardiac Disorders: Yes (CAD) Father Living Status: Hx Family Cardiac Disorders: Yes (CAD) Hx Family Neurologic Disorders: Yes (epilepsy) Sister Living Status: Unknown Hx Family Cardiac Disorders: Yes (CAD) Hx Family Cancer: No Hx Family Neurologic Disorders: Yes (CVA) Medications and Allergies Aspirin [Adult Low Dose Aspirin EC] 81 mg PO QAM 12/29/14 [History] Docusate [Colace] 100 mg PO BID 12/29/14 [History] FLUoxetine HCl [Prozac] 20 mg PO QAM 12/29/14 [History] Nitroglycerin [Nitrostat] 0.4 mg SL Q5M PRN 12/29/14 [History] Simvastatin [Zocor] 20 mg PO HS 12/29/14 [History] Pantoprazole Sodium [Protonix] 40 mg PO QAM 06/10/15 [History] Albuterol Sulfate [Albuterol Inhaler] 2 puff IH Q4HR PRN 04/26/17 [History] Budesonide/Formoterol 160/4.5 [Symbicort 160/4.5] 2 puff IH QAM 05/19/17 [ History] Isosorbide MONOnitrate (24 HR) [Imdur] 60 mg PO QAM 05/19/17 [History] Pramipexole Di-HCl [Pramipexole Dihydrochloride] 0.5 mg PO HS 05/19/17 [History] hydrOXYzine HCl [Hydroxyzine HCl] 25 mg PO HS PRN 05/19/17 [History] metOLazone [Zaroxolyn] 5 mg PO QAM 05/19/17 [History] Furosemide [Lasix] 40 mg PO BID 06/06/17 [History] Ipratropium/Albuterol Neb [Duoneb] 3 ml IH 0800,2000 06/06/17 [History] Ipratropium/Albuterol Neb [Duoneb] 3 ml IH Q4H PRN 06/06/17 [History] Lactose-Reduced Food [Ensure Liquid] 1 bottle PO TIDWM 06/06/17 [History] Oxygen 3 l NS CONT 06/06/17 [History] Potassium Chloride 40 meq PO QAM 06/06/17 [History] Amiodarone [Cordarone] 200 mg PO BID #30 tablet 06/18/17 [Rx] Diltiazem CD (24hr) [Cardizem CD] 240 mg PO QAM #60 cap.er.24h 06/18/17 [Rx] LORazepam [Ativan] 0.5 mg PO BID PRN #8 tablet 06/18/17 [Rx] Oxycodone HCl/Acetaminophen [Percocet 5-325 mg Tablet] 1 each PO Q8H PRN #6 tablet 06/18/17 [Rx] Metoprolol XL (24 HR) Succ [Toprol Xl] 25 mg PO BID 08/11/17 [History] 3 Allergy/AdvReac Type Severity Reaction Status Date / Time Sulfa (Sulfonamide AdvReac Nausea Verified 08/11/17 15:19 Antibiotics) All Systems Review: The remainder of the systems were reviewed and are negative Physical Examination Vital Signs, Last 4 Hours Temp Pulse Resp BP Pulse Ox 08/11/17 15:18 33 16 123/42 08/11/17 15:12 44 16 118/51 08/11/17 15:04 31 16 58/36 08/11/17 14:34 97.5 F L 55 16 94/72 97 General: Conversant, Other (Ill appearing, pale) HEENT: Atraumatic, Normocephaly, Mucus Membranes Moist Neck: No JVD, Normal carotid pulses Cardiac: Reg Rate and Rhythm, Normal S1 and S2, No Murmur, Other (SB on telemetry) Lungs: Normal Breath Sounds, No Wheeze, Rales, Rhonchi Neuro: Alert and responsive, No focal deficits noted Abdomen: Soft, Other (Tender in RUQ. ) Skin: No rashes noted on visualized skin Musculoskeletal: No Chest Wall Tenderness Extremities: No Clubbing, Other (2+ radial pulses. ) Results 08/11/17 14:39 08/11/17 14:39 Lab Results 08/11/17 08/11/17 14:39 14:39 WBC 12.9 H Hgb 9.6 L Hct 31.5 L Plt Count 364 Sodium 134 L Potassium 5.0 Chloride 99 Carbon Dioxide 28 BUN 66 H Creatinine 1.96 H Glucose 125 H Calcium 9.1 Magnesium 2.7 H Total Bilirubin 0.3 AST 20 ALT 15 Alkaline Phosphatase 73 - Imaging and Cardiology Stress Test: report reviewed - EKG Interpretation EKG results cardiology: personally reviewed
--- NOTE | 2017-08-11 15:28 | Emergency Department Note ---
Disposition Clinical Impression: Bradycardia, CHIQUITA (acute kidney injury), Elevated troponin Hypotension Qualifiers: Hypotension type: unspecified hypotension type Qualified Code(s): I95.9 - Hypotension, unspecified CHF (congestive heart failure) Qualifiers: Heart failure type: unspecified Heart failure chronicity: unspecified Qualified Code(s): I50.9 - Heart failure, unspecified Disposition: Admitted As Inpatient Condition: Fair Time of Disposition: 17:43 General Adult HPI - General Chief complaint: ED Weakness Stated complaint: sent from cardio Time Seen by Provider: 08/11/17 14:29 Source: patient, EMS Mode of arrival: EMS Limitations: no limitations Nursing Notes Reviewed: Yes Vital Signs Reviewed: Yes - History of Present Illness HPI Narrative: 87 year old female with significant PMHx of CHF and atrial fibrillation presenting to the ED with chief complaint of symptomatic bradycardia. Patient states for the past week or so she has been feeling more weak and tired. She denies chest pain, shortness of breath or dizziness. Patient went to her ladies attendant's today for a routine evaluation and her EKG showed a heart rate of 30. She was also hypotensive with systolic BP in the 90s. Patient was transferred here for further evaluation. In the room the patient denies any symptoms or concerns. Pain Scale: 8 - Related Data Home Medications Medication Instructions Recorded Confirmed Aspirin [Adult Low Dose Aspirin EC] 81 mg PO QAM 12/29/14 08/11/17 Pantoprazole Sodium [Protonix] 40 mg PO QAM 06/10/15 08/11/17 Isosorbide MONOnitrate (24 HR) 60 mg PO QAM 05/19/17 08/11/17 [Imdur] Pramipexole Di-HCl [Pramipexole 0.5 mg PO BID 05/19/17 08/11/17 Dihydrochloride] metOLazone [Zaroxolyn] 5 mg PO QAM 05/19/17 08/11/17 Oxygen 3 l NS AD 06/06/17 08/11/17 Potassium Chloride 20 meq PO QAM 06/06/17 08/11/17 Acetaminophen [Tylenol] 500 mg PO TID 08/11/17 08/11/17 Citalopram [CeleXA] 20 mg PO HS 08/11/17 08/11/17 Docusate [Colace] 100 mg PO BID 08/11/17 08/11/17 Fluticasone/Vilanterol [Breo 1 puff IH DAILY 08/11/17 08/11/17 Ellipta 200-25 Mcg INH] Furosemide [Lasix] 40 mg PO DAILY 08/11/17 08/11/17 Ipratropium/Albuterol Neb [Duoneb] 3 ml IH BID 08/11/17 08/11/17 Ipratropium/Albuterol Neb [Duoneb] 3 ml IH Q4H PRN 08/11/17 08/11/17 Lactose-Reduced Food [Ensure 1 bottle PO TIDWM 08/11/17 08/11/17 Liquid] Metoprolol [Lopressor] 25 mg PO BID 08/11/17 08/11/17 Simvastatin [Zocor] 10 mg PO HS 08/11/17 08/11/17 dilTIAZem HCl [Diltiazem ER] 240 mg PO DAILY 08/11/17 08/11/17 Previous Rx's Medication Instructions Recorded Amiodarone [Cordarone] 200 mg PO BID #30 tablet 06/18/17 Allergies Allergy/AdvReac Type Severity Reaction Status Date / Time Sulfa (Sulfonamide AdvReac Nausea Verified 08/11/17 15:19 Antibiotics) All systems ED: reviewed and negative except as stated. Neurological: Reports: weakness Past Medical History - Past Medical History Attestation: Yes The following information was validated with the patient. Medical history: Reports: GERD, atrial fibrillation, hyperlipidemia, arthritis, hypertension, osteoporosis, CVA, coronary artery disease, CHF, COPD Surgical history: Reports: carotid endarterectomy, coronary bypass (CABG), orthopedic, other, angioplasty/stent, other, hysterectomy, appendectomy, LE stent (s), LE vascular intervention Psychiatric history: Reports: anxiety, depression - Social History Smoking Status: Former smoker Smokeless Tobacco Status: No Alcohol use: Reports: none Drug use: Reports: none Physical Exam - General General appearance: alert, in no apparent distress - Head Head exam: atraumatic, normocephalic, normal inspection - Eye Eye exam: Present: normal appearance. Absent: scleral icterus, conjunctival injection - ENT ENT exam: normal exam - Neck Neck exam: Present: normal inspection, full ROM. Absent: tenderness, meningismus - Chest Chest inspection: Present: normal inspection, symmetric chest wall rise. Absent : tenderness, rash - Respiratory Respiratory exam: Present: normal lung sounds bilaterally. Absent: respiratory distress, wheezes - Cardiovascular Cardiovascular exam: Present: bradycardia - Abdominal Exam Abdominal exam: Present: soft, Non-Tender. Absent: distention, guarding, rebound - Extremities Exam Extremities exam: Present: normal inspection, full ROM - Neurological Exam Neurological exam: Present: alert - Psychiatric Psychiatric exam: Present: normal affect, normal mood - Skin Skin exam: Present: warm, intact Course Course Narrative: 87 year old female sent to us for symptomatic bradycardia. Upon arrival patient was in the 30s heart rate and systolic BP in the 90s. Patient was placed on pads and given 1 full dose of atropine. Patient responding mild to the atropine bringing her heart rate up to 40. Patient's BP started to become unstable with systolic in the 60s. An epinepherine drip was ordered and while we waited for it to arrive from pharmacy push dose epinepherine pressors was started. I spoke with Dr. Gamino the ladies attendant calendar control clerk blood bank who agreed to come to the ED and assess the patient. The decision was made to bring the patient to the analyst microbiology lab to place a pacer. Patient's family was at bedside and they agreed with this plan. With push dose pressors patient's BP elevated well and heart rate was stable. Patient was alert but slightly confused in the room upon arrival. Patient's labs so acute kidney injury, elevated troponin and elevated BNP with pulmonary vascular congestion on chest x-ray. We will plant to admit the patient to cardiology after patient receives a pacer. Patient stable at time of admission. Vital Signs Temperature 97.5 F L 08/11/17 14:34 Pulse Rate 55 08/11/17 14:34 Respiratory Rate 16 08/11/17 14:34 Blood Pressure 94/72 08/11/17 14:34 O2 Sat by Pulse Oximetry 97 08/11/17 14:34 Temperature 97.5 F L 08/11/17 17:34 Pulse Rate 59 08/11/17 19:00 Respiratory Rate 18 08/11/17 18:00 Blood Pressure 177/79 08/11/17 19:00 O2 Sat by Pulse Oximetry 96 08/11/17 19:00 Oxygen Delivery Oxygen Delivery Nasal Cannula Medical Decision Making - Medical Records Medical records reviewed: Yes I reviewed the patient's medical records. - Lab Data Lab results reviewed: Yes I reviewed the patient's lab results. Result diagrams: 08/11/17 14:39 08/11/17 14:39 Lab Results 08/11/17 08/11/17 08/11/17 Range/Units 14:39 14:39 14:39 WBC 12.9 H (4.3-11.1) K/mcL RBC 3.31 L (3.82-4.97) M/mcL Hgb 9.6 L (11.5-15.4) g/dL Hct 31.5 L (35.3-44.9) % MCV 95.2 (83.0-100.0) fL MCH 29.0 (28.0-33.3) pg MCHC 30.5 L (31.6-35.5) g/dL RDW 15.9 H (11.5-14.5) % Plt Count 364 (140-400) K/mcL MPV 9.9 (9.4-12.4) fL Immature Gran % 0.9 (0-4) % Seg Neutrophils % 72.3 % Lymphocytes % 16.3 % Monocytes % 8.7 % Eosinophils % 1.3 % Basophils % 0.5 % Neutrophils # 9.3 H (1.6-8.9) K/mcL Lymphocytes # 2.1 (0.6-4.6) K/mcL Monocytes # 1.1 (0.0-1.3) K/mcL Eosinophils # 0.2 (0.0-0.6) K/mcL Basophils # 0.1 (0.0-0.2) K/mcL Nucleated RBCs/100 WBC 0.4 H (0) /100 WBC Sodium 134 L (136-145) mEq/L Potassium 5.0 (3.5-5.1) mEq/L Chloride 99 (98-107) mEq/L Carbon Dioxide 28 (23-29) mEq/L BUN 66 H (8-23) mg/dL Creatinine 1.96 H (0.60-1.20) mg/dL Est GFR ( Amer) 29 L (> 60) Est GFR (Non-Af Amer) 24 L (> 60) BUN/Creatinine Ratio 34 H (6-26) Glucose 125 H (70-105) mg/dL Calculated Osmolality 299 (280-300) Lactic Acid (0.5-2.2) mmol/L Calcium 9.1 (8.6-10.3) mg/dL Phosphorus 5.5 H (2.7-4.5) mg/dL Magnesium 2.7 H (1.6-2.6) mg/dL Total Bilirubin 0.3 (0.3-1.0) mg/dL AST 20 (13-39) Units/L ALT 15 (7-52) Units/L Alkaline Phosphatase 73 (34-104) Units/L Troponin I 0.04 H* (< 0.04) ng/mL B-Natriuretic Peptide 1612 H (Less than 100) pg/mL Serum Total Protein 6.7 (6.4-8.9) g/dL Albumin 3.2 L (3.5-5.7) g/dL Globulin 3.5 (2.4-3.5) g/dL Albumin/Globulin Ratio 0.9 L (1.1-2.2) TSH 7.376 H (0.340-5.600) mcIU/mL 08/11/17 Range/Units 14:46 WBC (4.3-11.1) K/mcL RBC (3.82-4.97) M/mcL Hgb (11.5-15.4) g/dL Hct (35.3-44.9) % MCV (83.0-100.0) fL MCH (28.0-33.3) pg MCHC (31.6-35.5) g/dL RDW (11.5-14.5) % Plt Count (140-400) K/mcL MPV (9.4-12.4) fL Immature Gran % (0-4) % Seg Neutrophils % % Lymphocytes % % Monocytes % % Eosinophils % % Basophils % % Neutrophils # (1.6-8.9) K/mcL Lymphocytes # (0.6-4.6) K/mcL Monocytes # (0.0-1.3) K/mcL Eosinophils # (0.0-0.6) K/mcL Basophils # (0.0-0.2) K/mcL Nucleated RBCs/100 WBC (0) /100 WBC Sodium (136-145) mEq/L Potassium (3.5-5.1) mEq/L Chloride (98-107) mEq/L Carbon Dioxide (23-29) mEq/L BUN (8-23) mg/dL Creatinine (0.60-1.20) mg/dL Est GFR ( Amer) (> 60) Est GFR (Non-Af Amer) (> 60) BUN/Creatinine Ratio (6-26) Glucose (70-105) mg/dL Calculated Osmolality (280-300) Lactic Acid 1.3 (0.5-2.2) mmol/L Calcium (8.6-10.3) mg/dL Phosphorus (2.7-4.5) mg/dL Magnesium (1.6-2.6) mg/dL Total Bilirubin (0.3-1.0) mg/dL AST (13-39) Units/L ALT (7-52) Units/L Alkaline Phosphatase (34-104) Units/L Troponin I (< 0.04) ng/mL B-Natriuretic Peptide (Less than 100) pg/mL Serum Total Protein (6.4-8.9) g/dL Albumin (3.5-5.7) g/dL Globulin (2.4-3.5) g/dL Albumin/Globulin Ratio (1.1-2.2) TSH (0.340-5.600) mcIU/mL - Radiology Data Radiology results reviewed: Yes I reviewed the patient's radiology results. Chest X-Ray 08/11/17 14:36 IMPRESSION: Pulmonary vascular congestion. Cardiomegaly mildly increased from 06/13/2017. D/ / Reggie Reid MD / Reggie Reid MD Interpreting Provider: Reggie Reid MD - EKG Data EKG #1 EKG attestation: Yes I reviewed and interpreted this EKG. EKG results narrative: Sinus bradycardia 31 BPM. NM interval 168, QRS 100, [id number]. Right axis deviation. No signs of acute ST segment elevation or ischemia Critical Care Time Critical Care Time: Yes Total Critical Care Time: 60 Attestation: I examined this patient and my medical decision-making was reviewed with the Resident Physician, Dr. Villa. I agree with the documented findings, disposition and treatment plan as described except to the extent set forth below. Patient is an 87-year-old white female who was sent from her ladies attendant's office directly to the ED for concern for bradycardia and hypotension. Patient was brought back to a bed placed on a satellite project site monitor continuous pulse ox and supplemental oxygen. Patient appeared pale and had mild confusion on arrival although could answer questions appropriately when redirected. Patient denied any chest pain pressure or heaviness was just complaining of overwhelming generalized weakness. Patient denied any shortness of breath, no abdominal pain or back pain no history of falls or trauma. Patient is on a number of cardiac medications including metoprolol Cardizem and amiodarone. Patient was placed on pacer pads and IV saline well was established as well as a second large-bore IV. IV fluids were initiated and patient was given two 0.5 mg doses of atropine. Patient had transient improvement in her heart rate and blood pressure. Patient was started on an epinephrine drip and cardiology was contacted for concern for emergent pacemaker placement. I agree with patient's physical exam findings as documented. Dr. Gamino was covering for cardiology who came to bedside to evaluate the patient. Patient received patient's just pressors just prior to his arrival for evaluation. I had a long talk with the patient at bedside with her present as well as her daughter in regards to pacemaker placement and consent for the procedure. I also reiterated with him at bedside her CODE STATUS. Patient stated that she did not want chest compressions or intubation or mechanical ventilation to be done and that if her heart stopped she did not want any resuscitative efforts initiated. This was confirmed by both her and daughter at bedside. DNR CCA CODE STATUS. Emergent labs were drawn and sent, portal chest x-ray was obtained at bedside during patient's ED course which showed some mild pulmonary vascular congestion. Patient remained stable from a respiratory status on nasal cannula oxygen. Patient's troponin was elevated. Dr. Gamino took the patient directly to the lab for emergent pacemaker placement. Patient will be sent to the ICU by Dr. Gamino following procedure. We did consult the diesel truck mechanic for medical management.
[2017-08-11 15:32] LABS: Thyroid Stimulating Hormone 7.376 mcIU/mL (0.340-5.600)
[2017-08-11] MEDS ORDERED: 0.9 % Sodium Chloride 1,000 ML ONE (15:38)
[2017-08-11] MEDS ORDERED: *HR* Morphine 2 MG/ML SYRINGE IVP PRN (15:52)
--- NOTE | 2017-08-11 17:28 | Internal Medicine Consult Note ---
Date of Encounter: 08/11/17 Time of Encounter: 17:25 - Assessment and Plan (1) Anemia Current Visit: Yes Status: Chronic Assessment and plan: Chronic Qualifiers: Anemia type: unspecified type Qualified Code(s): D64.9 - Anemia, unspecified (2) History of coronary artery bypass graft Current Visit: No Status: Chronic Assessment and plan: No chest pain at present (3) Hypertension Current Visit: No Status: Chronic Assessment and plan: Blood pressure at present is well controlled Qualifiers: Hypertension type: essential hypertension Qualified Code(s): I10 - Essential (primary) hypertension (4) Dyslipidemia Current Visit: No Status: Chronic Assessment and plan: Chronic (5) COPD (chronic obstructive pulmonary disease) Current Visit: No Status: Chronic Assessment and plan: Chronic no active wheezing at present resume home medication we will check ABG Qualifiers: COPD type: unspecified COPD Qualified Code(s): J44.9 - Chronic obstructive pulmonary disease, unspecified (6) Acute kidney injury Current Visit: No Status: Acute Assessment and plan: Patient has chronic kidney disease Becraft is more tired than usual we will start gentle hydration and consider nephrology consult (7) Symptomatic bradycardia Current Visit: Yes Status: Acute Assessment and plan: Status post temporary pacemaker placement Internal Medicine - CN: HPI - Data of Consult Consult date: 08/11/17 Requesting Physician: Sean Gamino MD - Consult Narrative Reason for consult: medical management History of present illness: Ms. Evans is a 87 year old female Patient with history of atrial fibrillation, CAD CABG in the past, prior PCI, hypertension, TIA and CVA, COPD, anxiety and depression she was sent from cardiology office to the emergency room due to bradycardia heart rate was 30 has symptoms feeling weak, fatigue and symptoms of presyncope ,no chest pain no shortness of breath has some nausea and vomiting patient was then taken to the Cut Out Worker and had a temporary pacemaker placed Hospitalist group was consulted for medical management. Patient just returned from the Cut Out Worker to 2 N. NO acute medical issues at this point saturation is in the high 80s I just ordered ABG to verify exam is unremarkable some chest rhonchi and no active wheezing. Past Med Surg Social Fam HX - Past Medical History Medical history: GERD, atrial fibrillation, hyperlipidemia, arthritis, hypertension, osteoporosis, CVA, coronary artery disease, CHF, COPD Psychiatric history: anxiety, depression - Past Surgical History Surgical History: carotid endarterectomy, coronary bypass (CABG), orthopedic, other, angioplasty/stent, other, hysterectomy, appendectomy, LE stent (s), LE vascular intervention - Social History Smoking Status: Former smoker Smokeless Tobacco Status: No Alcohol use: none Drug use: none - Family History Mother Living Status: Hx Family Cardiac Disorders: Yes (CAD) Father Living Status: Hx Family Cardiac Disorders: Yes (CAD) Hx Family Neurologic Disorders: Yes (epilepsy) Sister Living Status: Unknown Hx Family Cardiac Disorders: Yes (CAD) Hx Family Cancer: No Hx Family Neurologic Disorders: Yes (CVA) - Constitutional Constitutional: fatigue, lethargy - Cardiovascular Cardiovascular ROS IM: as per HPI, lightheadedness Internal Medicine - CN: Meds RX: Aspirin [Adult Low Dose Aspirin EC] 81 mg PO QAM 12/29/14 [History] RX: Pantoprazole Sodium [Protonix] 40 mg PO QAM 06/10/15 [History] RX: Isosorbide MONOnitrate (24 HR) [Imdur] 60 mg PO QAM 05/19/17 [History] RX: Pramipexole Di-HCl [Pramipexole Dihydrochloride] 0.5 mg PO HS 05/19/17 [ History] RX: metOLazone [Zaroxolyn] 5 mg PO QAM 05/19/17 [History] RX: Oxygen 3 l NS CONT 06/06/17 [History] RX: Potassium Chloride 20 meq PO QAM 06/06/17 [History] RX: Amiodarone [Cordarone] 200 mg PO BID #30 tablet 06/18/17 [Rx] Acetaminophen [Tylenol] 500 mg PO TID 08/11/17 [History] Citalopram [CeleXA] 20 mg PO HS 08/11/17 [History] Fluticasone/Vilanterol [Breo Ellipta 200-25 Mcg INH] 1 puff IH DAILY 08/11/17 [ History] Furosemide [Lasix] 40 mg PO DAILY 08/11/17 [History] Ipratropium/Albuterol Neb [Duoneb] 3 ml IH BID 08/11/17 [History] Ipratropium/Albuterol Neb [Duoneb] 3 ml IH Q4H PRN 08/11/17 [History] Lactose-Reduced Food [Ensure Liquid] 1 bottle PO TIDWM 08/11/17 [History] Metoprolol [Lopressor] 25 mg PO BID 08/11/17 [History] RX: Docusate [Colace] 100 mg PO DAILY 08/11/17 [History] Simvastatin [Zocor] 10 mg PO HS 08/11/17 [History] dilTIAZem HCl [Diltiazem ER] 240 mg PO DAILY 08/11/17 [History] 3 Allergy/AdvReac Type Severity Reaction Status Date / Time Sulfa (Sulfonamide AdvReac Nausea Verified 08/11/17 15:19 Antibiotics) Internal Medicine - CN: Exam - Constitutional Vitals: Temp Pulse Resp BP Pulse Ox 0 F L 35 16 114/42 93 08/11/17 15:33 08/11/17 15:27 08/11/17 15:33 08/11/17 15:33 08/11/17 15:27 General appearance IM: Present: pleasant - Respiratory Respiratory exam: Present: rhonchi - Cardiovascular Cardiovascular exam IM: Present: +S1, +S2 Internal Medicine - CN: Reslt - Labs CBC & Chem 7: 08/11/17 14:39 08/11/17 14:39 Consult Discharge Plan - Plan Referrals: Tamiko Keys, [employer] [Primary Care Provider] -
[2017-08-11] MEDS ORDERED: Ipratropium/Albuterol Neb 3 ML IH PRN (17:38)
[2017-08-11 17:46] LABS: ABG Base Excess 1 mEq/L (-2 to 3); ABG HCO3 26 mEq/L (21-27); ABG Oxygen Saturation 97 % (95-98); ABG PCO2 44 mmHg (35-45); ABG PH 7.39 pH Units (7.32-7.45); ABG PO2 89 mmHg (85-104); ABG TCO2 28 mEq/L (20-26)
[2017-08-11] MEDS ORDERED: Perflutren Lipid Microsphere 1.3 ML in 0.9 % Sodium Chloride 8.7 ML IVP ONE (19:57)
[2017-08-11] MEDS ORDERED: Perflutren Lipid Microsphere 2 ML VIAL ONE (20:01)
[2017-08-11] MEDS: Ipratropium/Albuterol Neb 3 ML IH SCH ×2 (20:03→23:06)
[2017-08-11] MEDS: Ondansetron 4 MG/2 ML VIAL IVP PRN (22:48)
[2017-08-12] MEDS: Ipratropium/Albuterol Neb 3 ML IH SCH ×6 (04:15→23:29)
[2017-08-12 04:23] LABS: Basophils % 0.3 %; Eosinophils # 0.3 K/mcL (0.0-0.6); Eosinophils % 2.6 %; Hematocrit 28.4 % (35.3-44.9); Hemoglobin 8.6 g/dL (11.5-15.4); Immature Granulocytes % 0.5 % (0-4); Lymphocytes # 1.2 K/mcL (0.6-4.6); Lymphocytes % 11.1 %; Mean Corpuscular HGB Conc 30.3 g/dL (31.6-35.5); Mean Corpuscular Hemoglobin 28.8 pg (28.0-33.3); Mean Platelet Volume 9.9 fL (9.4-12.4); Monocytes # 0.6 K/mcL (0.0-1.3); Monocytes % 5.3 %; Neutrophils # 8.7 K/mcL (1.6-8.9); Platelet Count 301 K/mcL (140-400); Red Blood Count 2.99 M/mcL (3.82-4.97); Red Cell Distribution Width 15.9 % (11.5-14.5); Segmented Neutrophils % 80.2 %
[2017-08-12 04:40] LABS: Calcium 8.6 mg/dL (8.6-10.3); Potassium 4.1 mEq/L (3.5-5.1)
[2017-08-12 07:01] LABS: VBG Ionized Calcium 1.08 mmol/L (1.15-1.35)
[2017-08-12 07:56] LABS: Bilirubin,Urine Negative (Negative); Blood,Urine Moderate (Negative); Clarity,Urine Turbid (Clear); Color,Urine Yellow (Yellow); Glucose,Urine (UA) Normal (Normal); Ketones,Urine Negative (Negative); Leukocyte Esterase,Urine Large (Negative); Nitrite,Urine Positive (Negative); Protein,Urine Trace mg/dL (Neg-Trace); Urobilinogen,Urine Normal (Normal)
[2017-08-12 07:59] LABS: Bacteria,Urine Many per hpf (None-Few); Hyaline Casts,Urine None Seen per lpf (None-Few); Squamous Epithelial Cell,Urine Many per lpf (None-Few); WBC,Urine TNTC per hpf (0-3)
[2017-08-12] MEDS ORDERED: NON-FORMULARY MEDICATION 1 EACH EACH (Lactose-Reduced Food [Ensure Liquid] 1 BOTTLE) PO SCH (08:00)
[2017-08-12] MEDS ORDERED: (Fluticasone/Vilanterol [Breo Ellipta 200-25 Mcg Inh] IH SCH (09:00)
--- NOTE | 2017-08-12 09:31 | Internal Med Progress Note ---
<Eleazar Benito - Last Filed: 08/12/17 09:24> Date of Encounter: 08/12/17 Time of Encounter: 09:24 - Assessment and plan (1) Symptomatic bradycardia Current Visit: Yes Status: Acute Assessment and plan: Status post temporary pacemaker secondary to hypotension. Bradycardia did not response to epinephrine or atropine. Current plan: Withhold AV anuj blockers. If patient remains bradycardic cardiology considering permanent pacemaker. (2) Acute kidney injury Current Visit: Yes Status: Acute Assessment and plan: Secondary to hypertension from symptomatic bradycardia. Improving. Recommend starting low-dose Lasix as chest x-ray showed vascular congestion and blood pressure has normalized. This will also improve renal perfusion and help resolve acute kidney injury. (3) Anemia Current Visit: Yes Status: Chronic Assessment and plan: Stable. Denies hematochezia, melena, hematemesis, hemoptysis. Qualifiers: Anemia type: unspecified type Qualified Code(s): D64.9 - Anemia, unspecified (4) Hyperlipidemia Current Visit: Yes Status: Acute Assessment and plan: Continue home statin. Qualifiers: Hyperlipidemia type: unspecified Qualified Code(s): E78.5 - Hyperlipidemia , unspecified (5) CAD (coronary artery disease) Current Visit: Yes Status: Chronic Assessment and plan: Status post left heart catheter 10/2015 which showed occluded SVG to OM and diagonal and severe diffuse circumflex artery stenosis and in-stent restenosis. Patient is on aspirin, statin. Beta miroslava held due to bradycardia. Qualifiers: Coronary Disease-Associated Artery/Lesion type: bypass graft [place] vs. transplanted heart: [place] heart Associated angina: without angina Qualified Code(s): I25.810 - Atherosclerosis of coronary artery bypass graft(s) without angina pectoris (6) COPD (chronic obstructive pulmonary disease) Current Visit: Yes Status: Chronic Assessment and plan: Patient is on 4.5 L oxygen She denies cough, productive sputum. At home patient is on 3 L oxygen This increase likely secondary to acute pulmonary vascular congestion secondary to bradycardia. Continue home nebulizer treatment. Qualifiers: COPD type: unspecified COPD Qualified Code(s): J44.9 - Chronic obstructive pulmonary disease, unspecified (7) Hypertension Current Visit: Yes Status: Chronic Assessment and plan: Patient's blood pressure has normalized. Currently not on any home medications secondary to hypotension on presentation from symptomatic bradycardia. Qualifiers: Hypertension type: essential hypertension Qualified Code(s): I10 - Essential (primary) hypertension (8) Nausea Current Visit: Yes Status: Acute Assessment and plan: likely 2nd to bradycarida start zofran - Subjective Interval history: No acute events overnight. Denies headache, chest pain. Reports palpitations. Sob stable. Denies cough or sputum production. Reports nausea, denies vomiting abdominal pain, diarrhea. Denies LE swelling. - Constitutional Vitals: Temp Pulse Resp BP Pulse Ox 98.1 F 59 12 114/60 97 08/12/17 07:26 08/12/17 07:40 08/12/17 08:10 08/12/17 07:37 08/12/17 08:10 General appearance: Present: pleasant - Other Additional findings: General: without distress Heart: Paced rhythm. Lungs: Mild bibasilar crackles. Left groin lines intact no evidence of bleeding. Abdomen: Soft nontender, nondistended positive bowel sounds Skin: warm and dry Extremities: Absent pedal edema, Neuro: Alert oriented 3 Vascular: Pedal and radial pulses 2 out of 4 Internal Medicine: Result - Labs CBC & Chem 7: 08/12/17 03:55 08/12/17 03:55 Labs: Short CBC 08/12/17 Range/Units 03:55 WBC 10.9 (4.3-11.1) K/mcL Hgb 8.6 L (11.5-15.4) g/dL Hct 28.4 L (35.3-44.9) % Plt Count 301 (140-400) K/mcL Neutrophils # 8.7 (1.6-8.9) K/mcL BMP 08/12/17 03:55 Sodium 136 Potassium 4.1 Chloride 102 Carbon Dioxide 25 BUN 56 H Creatinine 1.47 H Glucose 106 H Calcium 8.6 Urine 08/12/17 Range/Units 07:40 Urine Color Yellow (Yellow) Urine Clarity Turbid A (Clear) Urine pH 6.0 (5.0-8.0) pH Units Ur Specific Rom[place] 1.020 (1.010-1.025) Urine Protein Trace (Neg-Trace) mg/dL Urine Glucose (UA) Normal (Normal) mg/dL - ABG Interpretation ABG results: ABG ABG pH 7.39 pH Units (7.32-7.45) 08/11/17 17:42 ABG pCO2 44 mmHg (35-45) 08/11/17 17:42 ABG pO2 89 mmHg (85-104) 08/11/17 17:42 ABG O2 Saturation 97 % (95-98) 08/11/17 17:42 Consult Discharge Plan - Plan Referrals: one week,wound check [Other] (The office will call patient with appointment) three week,device check [Other] (Office will call patient with appointment) Tamiko Keys CNP [Primary Care Provider] - (This patient is from [facility] no PCP appointment needed) Samm Driver MD [Partnered Physician] - (Office will call patient with appointment) <Carlos Wills A - Last Filed: 08/12/17 17:51> Date of Encounter: 08/12/17 - Assessment and plan (1) Chronic respiratory failure Current Visit: No Status: Chronic Qualifiers: Respiratory failure complication: hypoxia Qualified Code(s): J96.11 - Chronic respiratory failure with hypoxia (2) COPD (chronic obstructive pulmonary disease) Current Visit: Yes Status: Chronic Qualifiers: COPD type: emphysema Emphysema type: centrilobular Qualified Code(s): J43.2 - Centrilobular emphysema (3) CKD (chronic kidney disease) Current Visit: No Status: Chronic Qualifiers: Chronic kidney disease stage: stage 3 (moderate) Qualified Code(s): N18.3 - Chronic kidney disease, stage 3 (moderate) (4) Restless legs syndrome Current Visit: No Status: Chronic (5) PAF (paroxysmal atrial fibrillation) Current Visit: Yes Status: Chronic (6) Bradycardia Current Visit: Yes Status: Acute (7) Acute kidney injury Current Visit: Yes Status: Acute (8) Anemia Current Visit: Yes Status: Chronic Qualifiers: Anemia type: other cause Other causes of anemia: chronic disease, other Qualified Code(s): D63.8 - Anemia in other chronic diseases classified elsewhere (9) CHF (congestive heart failure) Current Visit: Yes Status: Chronic Qualifiers: Heart failure type: diastolic Heart failure chronicity: chronic Qualified Code(s): I50.32 - Chronic diastolic (congestive) heart failure (10) Hypertension Current Visit: Yes Status: Chronic Qualifiers: Hypertension type: essential hypertension Qualified Code(s): I10 - Essential (primary) hypertension - Constitutional Vitals: Temp Pulse Resp BP Pulse Ox 98.3 F 62 20 138/96 92 08/12/17 16:41 08/12/17 16:41 08/12/17 16:41 08/12/17 16:41 08/12/17 16:41 Internal Medicine: Result - Labs CBC & Chem 7: 08/12/17 03:55 08/12/17 03:55 Labs: Short CBC 08/12/17 Range/Units 03:55 WBC 10.9 (4.3-11.1) K/mcL Hgb 8.6 L (11.5-15.4) g/dL Hct 28.4 L (35.3-44.9) % Plt Count 301 (140-400) K/mcL Neutrophils # 8.7 (1.6-8.9) K/mcL BMP 08/12/17 03:55 Sodium 136 Potassium 4.1 Chloride 102 Carbon Dioxide 25 BUN 56 H Creatinine 1.47 H Glucose 106 H Calcium 8.6 Urine 08/12/17 Range/Units 07:40 Urine Color Yellow (Yellow) Urine Clarity Turbid A (Clear) Urine pH 6.0 (5.0-8.0) pH Units Ur Specific Rom[place] 1.020 (1.010-1.025) Urine Protein Trace (Neg-Trace) mg/dL Urine Glucose (UA) Normal (Normal) mg/dL - ABG Interpretation ABG results: ABG ABG pH 7.39 pH Units (7.32-7.45) 08/11/17 17:42 ABG pCO2 44 mmHg (35-45) 08/11/17 17:42 ABG pO2 89 mmHg (85-104) 08/11/17 17:42 ABG O2 Saturation 97 % (95-98) 08/11/17 17:42 - Attending Attestation I examined this patient and my medical decision-making was reviewed with the Resident Physician on 08/12/17. I agree with the documented findings, disposition and treatment plan as described except to the extent set forth below. Ms Evans is currently admitted for bradycardia requiring temporary pacemaker. We are following for other medical issues. She remains high risk at this time due to potential for worsening cardiac status Ms Evans is feeling OK. No CP or SOB. No nausea at this time but had a lot yesterday. No fever or chills. Breathing is at baseline. Exam alert Comfortable Mucus membranes dry Heart david Lungs with some rhonchi Abd soft I/P 1. Bradycardia - per cardiology 2. COPD Further diagnoses and plan as above.
--- NOTE | 2017-08-12 10:08 | Electrophysiology Consult Note ---
<Minna Ambrosio - Last Filed: 08/12/17 10:54> Date of Encounter: 08/12/17 Time of Encounter: 08:30 Assessment and Plan (1) Symptomatic bradycardia Current Visit: Yes Status: Acute Patient presented with symptomatic bradycardia, HR 30--sinus david. QT/QTc 644, 509 ms. Reports syncopal episode last week. ECG demonstrated SR 06/29/2017--HR 74 bpm. QT/QTc 437,465 ms. EF normal per TTE 05/2017. TSH elevated, will defer mgmt to primary service. CHIQUITA upon presentation. Home medications included: amiodarone 200 mg BID, Toprol 125 mg BID, and Cardizem 360 mg daily. Temporary pacer inserted on 08/11/17, HR did not respond to epi or atropine. Hold all AV anuj blocking agents for now and allow for washout. No indication for PPM at this juncture. Decrease pacer rate to 50 bpm today. If HR and QTc normalize, plan on Amiodarone 200 mg daily by discharge. Would d/ c CCB, BB. Will continue to follow. (2) Acute kidney injury Current Visit: Yes Status: Acute SCr 1.96 upon arrival, now improved to 1.47. Previous kidney function has noted to be normal. Likely contributing to bradycardia. (3) PAF (paroxysmal atrial fibrillation) Current Visit: Yes Status: Acute Hx of PAF. Recent hospitalization May 2017 with afib with RVR, rate was difficult to control at that time. Home medications included: amiodarone 200 mg BID, Cardizem 360 mg daily, and Toprol 125 mg BID. Has not been on AC d/t bleeding. H/H downtrended today, suspect dilutional. Continue to monitor closely. AV anuj blocking agents on hold. Discussion w patient/family: The assessment and plan as outlined above was discussed with the patient and/or family members who expressed understanding and agreement. All questions were answered. Thank you for involving us in the care of your patient. Please call with any questions. The patient was discussed and reviewed with Dr. Samm Driver; changes to be made accordingly. History of Present Illness Consult date: 08/12/17 Requesting physician: Sean Gamino Consult reason: Symptomatic bradycardia Chief complaint: Shortness of breath, syncope History of present illness: Ms. Evans is a 87 year old female with PMHx significant for CAD s/p CABG, afib , TIA/CVA, and COPD who presented to the ED with concern for symptomatic bradycardia. She was sent from the Cardiology office with documented HR in the 40's-50's. She currently resides at [facility], appt made to see Dr. Torres due to pulmonary edema as noted on CXR. Patient does have hx of dementia, however is alert and oriented x3 today. present at bedside upon exam. She does report a "black out" episode earlier this week. Denies chest pain or discomfort. Hospitalized in 2017 d/t respiratory infection and found to have atrial fibrillation with RVR--difficult to rate control and by discharge was on Toprol 125 mg BID, Amiodarone 200 mg BID, and Cardizem 360 mg daily. She has not been anticoagulated d/t bleeding. ECG upon arrival demonstrates SB 30 BPM, QT/QTc 644,509 ms. She was given IV atropine and epi in the ED without satisfactory HR response, therefore temporary pacemaker was inserted yesterday. Past Med Surg Social Fam HX - Past Medical History Attestation: Yes The following information was validated with the patient. Source: patient Medical history: GERD, atrial fibrillation, hyperlipidemia, arthritis, hypertension, osteoporosis, CVA, coronary artery disease, CHF, COPD Psychiatric history: anxiety, depression - Past Surgical History Surgical History: carotid endarterectomy, coronary bypass (CABG), orthopedic, other, angioplasty/stent, other, hysterectomy, appendectomy, LE stent (s), LE vascular intervention - Social History Smoking Status: Former smoker Smokeless Tobacco Status: No Alcohol use: none Drug use: none Current living situation: ECF - Family History Mother Living Status: Hx Family Cardiac Disorders: Yes (CAD) Father Living Status: Hx Family Cardiac Disorders: Yes (CAD) Hx Family Neurologic Disorders: Yes (epilepsy) Sister Living Status: Unknown Hx Family Cardiac Disorders: Yes (CAD) Hx Family Cancer: No Hx Family Neurologic Disorders: Yes (CVA) Medications and Allergies Aspirin [Adult Low Dose Aspirin EC] 81 mg PO QAM 12/29/14 [History] Pantoprazole Sodium [Protonix] 40 mg PO QAM 06/10/15 [History] Isosorbide MONOnitrate (24 HR) [Imdur] 60 mg PO QAM 05/19/17 [History] Pramipexole Di-HCl [Pramipexole Dihydrochloride] 0.5 mg PO BID 05/19/17 [History ] metOLazone [Zaroxolyn] 5 mg PO QAM 05/19/17 [History] Oxygen 3 l NS AD 06/06/17 [History] Potassium Chloride 20 meq PO QAM 06/06/17 [History] Amiodarone [Cordarone] 200 mg PO BID #30 tablet 06/18/17 [Rx] Acetaminophen [Tylenol] 500 mg PO TID 08/11/17 [History] Citalopram [CeleXA] 20 mg PO HS 08/11/17 [History] Docusate [Colace] 100 mg PO BID 08/11/17 [History] Fluticasone/Vilanterol [Breo Ellipta 200-25 Mcg INH] 1 puff IH DAILY 08/11/17 [ History] Furosemide [Lasix] 40 mg PO DAILY 08/11/17 [History] Ipratropium/Albuterol Neb [Duoneb] 3 ml IH BID 08/11/17 [History] Ipratropium/Albuterol Neb [Duoneb] 3 ml IH Q4H PRN 08/11/17 [History] Lactose-Reduced Food [Ensure Liquid] 1 bottle PO TIDWM 08/11/17 [History] Metoprolol [Lopressor] 25 mg PO BID 08/11/17 [History] Simvastatin [Zocor] 10 mg PO HS 08/11/17 [History] dilTIAZem HCl [Diltiazem ER] 240 mg PO DAILY 08/11/17 [History] 3 Allergy/AdvReac Type Severity Reaction Status Date / Time Sulfa (Sulfonamide AdvReac Nausea Verified 08/11/17 15:19 Antibiotics) All Systems Review: The remainder of the systems were reviewed and are negative - Cardiovascular Cardiovascular: as per HPI Physical Examination Vital Signs, Last 4 Hours Temp Pulse Resp BP Pulse Ox 08/12/17 08:10 12 97 08/12/17 07:40 59 08/12/17 07:37 59 18 114/60 96 08/12/17 07:34 94 08/12/17 07:26 98.1 F 59 18 174/64 94 General: Conversant, No Apparent Distress HEENT: Atraumatic, Normocephaly Cardiac: Reg Rate and Rhythm, Normal S1 and S2 Lungs: Other (bibasilar rales) Neuro: Alert and responsive Abdomen: Soft Skin: No rashes noted on visualized skin Musculoskeletal: No Chest Wall Tenderness Extremities: Other (mild BLE edema) Other: temporary pacer--right groin access site stable. Results 08/12/17 03:55 08/12/17 03:55 Lab Results 08/12/17 08/12/17 03:55 03:55 WBC 10.9 Hgb 8.6 L Hct 28.4 L Plt Count 301 Sodium 136 Potassium 4.1 Chloride 102 Carbon Dioxide 25 BUN 56 H Creatinine 1.47 H Glucose 106 H Calcium 8.6 Active Medications Acetaminophen (Tylenol) 500 mg PO Q6HR PRN PRN Reason: Mild Pain Stop: 02/10/18 15:53 Albuterol/Ipratropium (Duoneb) 3 ml IH [id number] CONRADO Stop: 02/10/18 20:01 Last Admin: 08/12/17 08:08 Dose: 3 ml Albuterol/Ipratropium (Duoneb) 3 ml IH [id number] PRN PRN Reason: Shortness Of Breath/Wheezing Stop: 02/10/18 17:39 Citalopram Hydrobromide (Celexa) 20 mg PO HS CONRADO Stop: 02/10/18 21:01 Last Admin: 08/11/17 20:55 Dose: 20 mg Docusate Sodium (Colace) 100 mg PO BID CONRADO PRN Reason: Protocol Stop: 02/10/18 21:01 Last Admin: 08/12/17 07:51 Dose: 100 mg Epinephrine HCl 1 mg/ Dextrose 251 mls @ 30.12 mls/hr IVC CONT CONRADO; 2 MCG/MIN PRN Reason: Protocol Stop: 02/10/18 15:01 Last Admin: 08/11/17 15:23 Dose: 2 mcg/min, 30.12 mls/hr Morphine Sulfate (Morphine Sulfate) 4 mg IVP Q3H PRN PRN Reason: Severe Pain (7-10) Stop: 02/10/18 15:53 Last Admin: 08/12/17 01:57 Dose: 4 mg Omeprazole (Prilosec) 20 mg PO QAM CONRADO Stop: 02/11/18 09:01 Last Admin: 08/12/17 07:50 Dose: 20 mg Ondansetron HCl (Zofran) 4 mg IVP Q8HR PRN PRN Reason: Nausea And Vomiting Stop: 02/10/18 15:53 Last Admin: 08/11/17 22:48 Dose: 4 mg Pharmacy Profile Note (Patient Taking Own Medication) 0 each IH DAILY CONRADO Stop: 02/11/18 09:01 Last Admin: 08/12/17 07:51 Dose: Not Given Pramipexole Dihydrochloride (Mirapex) 0.5 mg PO BID CONRADO Stop: 02/10/18 21:01 Last Admin: 08/12/17 07:51 Dose: 0.5 mg Simvastatin (Zocor) 10 mg PO HS CONRADO Stop: 02/10/18 21:01 Last Admin: 08/11/17 20:55 Dose: 10 mg - Imaging and Cardiology Stress Test: report reviewed Echo: report reviewed Cardiac cath: report reviewed Other Results: 12 hour tele: avg HR=60 paced. - EKG Interpretation EKG results cardiology: personally reviewed Consult Discharge Plan - Plan Referrals: one week,wound check [Other] (The office will call patient with appointment) three week,device check [Other] (Office will call patient with appointment) Tamiko Keys CNP [Primary Care Provider] - (This patient is from [facility] no PCP appointment needed) Samm Driver MD [Partnered Physician] - (Office will call patient with appointment) <Samm Driver - Last Filed: 08/12/17 15:56> Date of Encounter: 08/12/17 - Attending Attestation I have personally performed a face to face evaluation on this patient. I have reviewed and agree with the care plan. History and Exam by me shows: Sinus bradycardia on multiple rate slowing meds. Would hold meds and monitor heart rate. Assessment and Plan Discussion w patient/family: The assessment and plan as outlined above was discussed with the patient and/or family members who expressed understanding and agreement. All questions were answered. Thank you for involving us in the care of your patient. Please call with any questions. History of Present Illness History of present illness: Ms. Evans is a 87 year old female All Systems Review: The remainder of the systems were reviewed and are negative Physical Examination Vital Signs, Last 4 Hours Pulse Resp BP Pulse Ox 08/12/17 13:29 58 08/12/17 13:27 58 20 135/55 91 Results 08/12/17 03:55 08/12/17 03:55 Lab Results 08/12/17 08/12/17 03:55 03:55 WBC 10.9 Hgb 8.6 L Hct 28.4 L Plt Count 301 Sodium 136 Potassium 4.1 Chloride 102 Carbon Dioxide 25 BUN 56 H Creatinine 1.47 H Glucose 106 H Calcium 8.6
[2017-08-12] MEDS ORDERED: Albuterol 2.5 MG/3 ML NEBULIZER AER PRN (15:07)
[2017-08-12] MEDS: EPINEPHrine 1 MG in D5% in Water 250 ML IVC SCH (15:47)
[2017-08-12] MEDS: *HR* Heparin 5,000 UNIT/ML VIAL SQ SCH ×2 (16:05→23:08)
[2017-08-12] MEDS: Budesonide/Formoterol 160/4.5 MDI IH SCH (20:02)
--- NOTE | 2017-08-12 22:32 | Electrocardiograph Report ---
[place] [id number] Test Date: 2017-08-11 Pat Name: Ivette Evans Department: 104 Room: 2N06 Gender: F Content Strategy Lead: ALMA ROSA : 1930 Requested By: Naomy Johnson Order Number: [id number] Reading MD: Evangelist Walsh DO Measurements Intervals Lee Rate: 31 P: -39 MI: 168 QRS: 101 QRSD: 100 T: 55 QT: 561 QTc: 434 Interpretive Statements SINUS BRADYCARDIA INCOMPLETE RIGHT BUNDLE BRANCH BLOCK V6 NOT SUITABLE FOR ANALYSIS Electronically Signed On 08-12-2017 22:31:17 EDT by Evangelist Walsh DO
[2017-08-13 03:58] LABS: BUN/Creatinine Ratio 43 (6-26); Blood Urea Nitrogen 42 mg/dL (8-23); Calcium 8.8 mg/dL (8.6-10.3); Carbon Dioxide 26 mEq/L (23-29); Chloride 102 mEq/L (98-107); Glucose 109 mg/dL (70-105); Osmolality,Calculated 293 (280-300); Potassium 3.5 mEq/L (3.5-5.1); Sodium 136 mEq/L (136-145); eGFR For African Americans > 60 (> 60); eGFR For Non-African Americans 53 (> 60)
[2017-08-13] MEDS: Ipratropium/Albuterol Neb 3 ML IH SCH ×5 (04:13→19:59)
[2017-08-13] MEDS: Budesonide/Formoterol 160/4.5 MDI IH SCH ×2 (07:50→19:59)
[2017-08-13] MEDS ORDERED: Furosemide 20 MG/2 ML VIAL IVP ONE ×2 (08:31→08:36)
[2017-08-13] MEDS: *HR* Heparin 5,000 UNIT/ML VIAL SQ SCH ×2 (08:52→15:20)
[2017-08-13] MEDS: *HR* Amiodarone 200 MG TABLET PO SCH (09:59)
--- NOTE | 2017-08-13 10:30 | Electrophysiology ProgressNote ---
Date of Encounter: 08/13/17 Time of Encounter: 10:28 Assessment and Plan (1) Symptomatic bradycardia Current Visit: Yes Status: Resolved Patient presented with symptomatic bradycardia, HR 30--sinus david. QT/QTc 644, 509 ms. Reports syncopal episode last week. ECG demonstrated SR 06/29/2017--HR 74 bpm. QT/QTc 437,465 ms. EF normal per TTE 05/2017. TSH elevated, will defer mgmt to primary service. CHIQUITA upon presentation. Home medications included: amiodarone 200 mg BID, Toprol 125 mg BID, and Cardizem 360 mg daily. Temporary pacer inserted on 08/11/17, HR did not respond to epi or atropine. Held all AV anuj blocking agents for now and allow for washout. No indication for PPM at this juncture. Decreased pacer rate to 50 bpm yesterday, Currently HR is 110s-120s, sinus tach. EKG this AM Sinus rhythm, rate 80bpm, QT/ QTc 318/355ms. Discussed and reviewed with Dr. Samm Driver. Since HR and QTc have normalized, will start Amiodarone 200 mg daily. Remove temporary pacer today. Continue to follow. (2) PAF (paroxysmal atrial fibrillation) Current Visit: Yes Status: Chronic Hx of PAF. Recent hospitalization May 2017 with afib with RVR, rate was difficult to control at that time. Home medications included: amiodarone 200 mg BID, Cardizem 360 mg daily, and Toprol 125 mg BID. Has not been on AC d/t bleeding. H/H downtrended today, suspect dilutional. Continue to monitor closely. AV anuj blocking agents on hold, but resuming Amiodarone at 200mg daily today. (3) CAD (coronary artery disease) Current Visit: Yes Status: Chronic Hx of CAD. Last [facility] 10/2015-- Patent ESTEVEZ to LAD. Occluded SVG to OM and Diagonal. Severe diffuse circumflex artery stenosis and in-stent restenosis ( small diseased distal vessel). On asa, statin. No BB secondary to bradycardia. Stress test 10/2016 negative for ischemia. Qualifiers: Coronary Disease-Associated Artery/Lesion type: bypass graft [place] vs. transplanted heart: [place] heart Associated angina: without angina Qualified Code(s): I25.810 - Atherosclerosis of coronary artery bypass graft(s) without angina pectoris Discussion w patient/family: The assessment and plan as outlined above was discussed with the patient and/or family members who expressed understanding and agreement. All questions were answered. Thank you for involving us in the care of your patient. Please call with any questions. Subjective Principal diagnosis: Bradycardia Interval history: Pt is now in sinus tach at bedside, HR 110s. Reports worsening dyspnea and intermittent chest pain that started this AM. CXR obtained--mild progressive pulmonary edema and dose of IV Lasix given. Objective Vital Signs, Last 4 Hours Temp Pulse Pulse Resp BP Pulse Ox 08/13/17 10:02 109 22 131/60 93 08/13/17 09:07 118 26 123/53 92 08/13/17 08:39 79 78 24 143/56 08/13/17 08:18 77 08/13/17 08:16 78 24 157/90 91 08/13/17 08:00 97 08/13/17 07:50 22 90 08/13/17 07:19 99.6 F 71 22 146/49 90 Vital Signs Temp Pulse Pulse Resp BP Pulse Ox 08/13/17 10:02 109 22 131/60 93 08/13/17 09:07 118 26 123/53 92 08/13/17 08:39 79 78 24 143/56 08/13/17 08:18 77 08/13/17 08:16 78 24 157/90 91 08/13/17 08:00 97 08/13/17 07:50 22 90 08/13/17 07:19 99.6 F 71 22 146/49 90 08/13/17 06:00 73 135/47 08/13/17 05:00 72 142/50 08/13/17 04:13 18 94 08/13/17 03:48 98.7 F 68 16 124/40 94 08/13/17 02:00 66 127/42 08/13/17 01:00 67 112/37 08/13/17 00:00 69 102/47 08/12/17 23:30 18 95 08/12/17 23:00 98.5 F 65 16 118/84 93 08/12/17 22:00 65 126/54 08/12/17 21:00 65 120/42 08/12/17 20:04 17 96 08/12/17 20:00 98.0 F 62 16 111/53 93 08/12/17 19:00 60 101/41 08/12/17 17:57 64 20 112/63 93 08/12/17 16:41 98.3 F 62 20 138/96 92 08/12/17 16:30 16 94 08/12/17 16:23 59 08/12/17 16:08 60 20 138/96 95 08/12/17 13:29 58 08/12/17 13:27 58 20 135/55 91 08/12/17 11:42 16 135/55 94 08/12/17 11:19 97.9 F 52 18 121/52 94 Intake and Output 08/12/17 08/13/17 08/13/17 23:59 07:59 15:59 Intake Total 480 / 480 240 / 240 Output Total 350 / 350 225 / 225 850 / 850 Balance 130 / 130 -225 / -225 -610 / -610 Intake: Oral 480 / 480 240 / 240 Output: Catheter 350 / 350 225 / 225 850 / 850 Other: Meal Dinner Percent of Meal Consumed 15% Weight 68.4 kg Patient Weight 08/13/17 23:59 Weight 68.4 kg General: Conversant, No Apparent Distress HEENT: Atraumatic, Normocephaly, Mucus Membranes Moist Neck: No JVD, Normal carotid pulses Cardiac: Reg Rate and Rhythm, Normal S1 and S2, No Murmur Lungs: Other (diminished) Neuro: Alert and responsive, No focal deficits noted Abdomen: Soft, Non-Tender Skin: No rashes noted on visualized skin Musculoskeletal: No Chest Wall Tenderness Extremities: No Clubbing, No Cyanosis, No Edema, Normal Pulses Results 08/12/17 03:55 08/13/17 03:24 Lab Results 08/13/17 08/13/17 03:24 08:58 Sodium 136 Potassium 3.5 Chloride 102 Carbon Dioxide 26 BUN 42 H Creatinine 0.98 Glucose 109 H Calcium 8.8 Magnesium 2.4 BMP 08/13/17 Range/Units 03:24 Sodium 136 (136-145) mEq/L Potassium 3.5 (3.5-5.1) mEq/L Chloride 102 (98-107) mEq/L Carbon Dioxide 26 (23-29) mEq/L BUN 42 H (8-23) mg/dL Creatinine 0.98 (0.60-1.20) mg/dL Glucose 109 H (70-105) mg/dL Calcium 8.8 (8.6-10.3) mg/dL Impressions Echocardiogram 08/11/17 15:52 Impressions: Technically sub-optimal due to poor echocardiographic windows. LVEF 60%. Normal LV chamber size, wall thickness and function. Indeterminate diastolic function. Atypical septal motion consistent with paced rhythm. Normal right ventricular structure and function. Severely dilated left atrium. Mild mitral regurgitation. Moderate tricuspid regurgitation. Severe pulmonary hypertension. Estimated RVSP is 61-71 mmHg. The IVC is dilated. < 50% respiratory change. Linear echodensity noted in the IVC. History indicates a temporary pacemaker placed. Left Ventricular Wall Motion: Rest Echo Findings All wall segments showed normal motion. Findings: Study Quality * Technically sub-optimal due to poor echocardiographic windows. ECG Findings * Paced rhythm. Left Ventricle * LVEF 60%. * Normal LV chamber size, wall thickness and function. * Indeterminate diastolic function. * Atypical septal motion consistent with paced rhythm. Right Ventricle * Normal right ventricular structure and function. Left Atrium * Severely dilated left atrium. Right Atrium * Moderately dilated right atrium. Interatrial Septum * Interatrial septum not well evaluated. Aortic Valve * Trileaflet aortic valve. * Mildly calcified aortic valve leaflets. * Trace aortic regurgitation. * No aortic stenosis. Mitral Valve * Mild mitral annular calcification * Mild mitral regurgitation. * No mitral stenosis. Tricuspid Valve * Normal tricuspid valve structure. * Moderate tricuspid regurgitation. * Severe pulmonary hypertension. * Estimated RVSP is 61-71 mmHg. * Estimated RA pressure is 10-20 mmHg. Pulmonic Valve * Normal pulmonic valve structure and function. * Trace pulmonic regurgitation. Aorta * Normally sized aortic root. Pericardium * The pericardium appears normal. IVC * The IVC is dilated. * < 50% respiratory change. * Linear echodensity noted in the IVC. History indicates a temporary pacemaker placed. Pulmonary Artery * Normal visualized portions of the main pulmonary artery. Chest X-Ray 08/13/17 08:34 IMPRESSION: Stable enlarged cardiac silhouette with mild progressive interstitial pulmonary edema. D/ / 08/13/2017 09:04:45 Yunior Del Valle MD / Angeles Nieto Interpreting Provider: Yunior Del Valle MD Active Medications Acetaminophen (Tylenol) 500 mg PO Q6HR PRN PRN Reason: Mild Pain Stop: 02/10/18 15:53 Last Admin: 08/12/17 19:57 Dose: 500 mg Albuterol Sulfate (Proventil Neb) 2.5 mg AER Q2H PRN PRN Reason: SOB/WHEEZING Stop: 02/11/18 15:08 Albuterol/Ipratropium (Duoneb) 3 ml IH [id number] [place] Stop: 02/10/18 20:01 Last Admin: 08/13/17 07:49 Dose: 3 ml Amiodarone HCl (Cordarone) 200 mg PO DAILY [place] Stop: 02/12/18 10:01 Last Admin: 08/13/17 09:59 Dose: 200 mg Budesonide/Formoterol Fumarate (Symbicort) 2 puff IH BIDRESP [place] Stop: 02/11/18 22:01 Last Admin: 08/13/17 07:50 Dose: 2 puff Citalopram Hydrobromide (Celexa) 20 mg PO HS [facility] Stop: 02/10/18 21:01 Last Admin: 08/12/17 19:58 Dose: 20 mg Docusate Sodium (Colace) 100 mg PO BID [facility]O PRN Reason: Protocol Stop: 02/10/18 21:01 Last Admin: 08/13/17 08:49 Dose: Not Given Heparin Sodium (Porcine) (Heparin) 5,000 unit SQ Q8H [facility] Stop: 02/11/18 15:16 Last Admin: 08/13/17 08:52 Dose: 5,000 unit Epinephrine HCl 1 mg/ Dextrose 251 mls @ 30.12 mls/hr IVC CONT CONRADO; 2 MCG/MIN PRN Reason: Protocol Stop: 02/10/18 15:01 Last Admin: 08/12/17 15:47 Dose: Not Given Omeprazole (Prilosec) 20 mg PO QAM [facility] Stop: 02/11/18 09:01 Last Admin: 08/13/17 08:49 Dose: Not Given Ondansetron HCl (Zofran) 4 mg IVP Q8HR PRN PRN Reason: Nausea And Vomiting Stop: 02/10/18 15:53 Last Admin: 08/11/17 22:48 Dose: 4 mg Pramipexole Dihydrochloride (Mirapex) 0.5 mg PO BID [facility] Stop: 02/10/18 21:01 Last Admin: 08/13/17 08:49 Dose: Not Given Simvastatin (Zocor) 10 mg PO HS [facility] Stop: 02/10/18 21:01 Last Admin: 08/12/17 19:57 Dose: 10 mg - Imaging and Cardiology Echo: report reviewed - EKG Interpretation EKG results cardiology: personally reviewed, other (12 hr tele AVG HR 71, sinus rhythm, no significant pauses or bradycardic episodes) Consult Discharge Plan - Plan Referrals: one week,wound check [Other] (The office will call patient with appointment) three week,device check [Other] (Office will call patient with appointment) Tamiko Keys CNP [Primary Care Provider] - (This patient is from [facility] no PCP appointment needed) Samm Driver MD [Partnered Physician] - (Office will call patient with appointment)
--- NOTE | 2017-08-13 13:28 | Internal Med Progress Note ---
<Eleazar Benito - Last Filed: 08/13/17 13:20> Date of Encounter: 08/13/17 Time of Encounter: 13:21 - Assessment and plan (1) CHF exacerbation Current Visit: Yes Status: Acute Assessment and plan: This morning patient had acute onset of shortness breath and chest pain. Chest x-ray showed worsening pulmonary vascular congestion. Patient started on daily Lasix. Strict I's and O's. Cardiac diet. Continue oxygen supplementation. Qualifiers: Qualified Code(s): I50.33 - Acute on chronic diastolic (congestive) heart failure (2) PAF (paroxysmal atrial fibrillation) Current Visit: Yes Status: Chronic Assessment and plan: This morning patient has sinus tachycardia. Patient started on amiodarone 200 mg daily today. Patient is not on anticoagulation due to history of bleeding. (3) Symptomatic bradycardia Current Visit: Yes Status: Resolved Assessment and plan: Status post temporary pacemaker secondary to hypotension. Resolved Patient currently sinus tachycardic. Cardiology plans to restart amiodarone. Temporary pacemaker removed today. (4) CAD (coronary artery disease) Current Visit: Yes Status: Chronic Assessment and plan: Status post left heart catheter 10/2015 which showed occluded SVG to OM and diagonal and severe diffuse circumflex artery stenosis and in-stent restenosis. Continue aspirin, statin. Qualifiers: Coronary Disease-Associated Artery/Lesion type: bypass graft [place] vs. transplanted heart: [place] heart Associated angina: without angina Qualified Code(s): I25.810 - Atherosclerosis of coronary artery bypass graft(s) without angina pectoris (5) COPD (chronic obstructive pulmonary disease) Current Visit: Yes Status: Chronic Assessment and plan: Stable Not an exacerbation Continue oxygen supplementation and home nebulizer treatment. Qualifiers: COPD type: emphysema Emphysema type: centrilobular Qualified Code(s): J43.2 - Centrilobular emphysema (6) Hypertension Current Visit: Yes Status: Chronic Assessment and plan: Patient's blood pressure has normalized. Continue Lasix. Qualifiers: Hypertension type: essential hypertension Qualified Code(s): I10 - Essential (primary) hypertension (7) Nausea Current Visit: Yes Status: Resolved Assessment and plan: Resolved (8) Hyperlipidemia Current Visit: Yes Status: Chronic Assessment and plan: Continue home statin. Qualifiers: Hyperlipidemia type: unspecified Qualified Code(s): E78.5 - Hyperlipidemia , unspecified (9) Acute kidney injury Current Visit: Yes Status: Resolved Assessment and plan: Resolved with IV fluids. - Subjective Interval history: This morning patient experienced acute onset of shortness of breath and chest pain. EKG was ordered and showed sinus tachycardia. Repeat troponin 0.05. Chest x-ray shows worsening vascular congestion. Patient was given 1 dose of IV Lasix which improved her symptoms. - Constitutional Vitals: Temp Pulse Resp BP Pulse Ox 98.2 F 114 20 120/56 94 08/13/17 11:06 08/13/17 12:00 08/13/17 11:57 08/13/17 11:06 08/13/17 11:57 General appearance: Present: pleasant - Other Additional findings: General: Pleasant moderate distress Heart: Sinus tachycardia Lungs: Bilateral crackles Abdomen: Soft nontender, nondistended positive bowel sounds Skin: warm and dry Extremities: Absent pedal edema, Neuro: Alert oriented 3 Vascular: Pedal and radial pulses 2 out of 4 Internal Medicine: Result - Labs CBC & Chem 7: 08/12/17 03:55 08/13/17 03:24 Labs: BMP 08/13/17 03:24 Sodium 136 Potassium 3.5 Chloride 102 Carbon Dioxide 26 BUN 42 H Creatinine 0.98 Glucose 109 H Calcium 8.8 Cardiac Enzymes 08/13/17 Range/Units 08:58 Troponin I 0.05 H* (< 0.04) ng/mL - ABG Interpretation ABG results: ABG ABG pH 7.39 pH Units (7.32-7.45) 08/11/17 17:42 ABG pCO2 44 mmHg (35-45) 08/11/17 17:42 ABG pO2 89 mmHg (85-104) 08/11/17 17:42 ABG O2 Saturation 97 % (95-98) 08/11/17 17:42 - Impressions Impressions Chest X-Ray 08/13/17 08:34 IMPRESSION: Stable enlarged cardiac silhouette with mild progressive interstitial pulmonary edema. D/ / 08/13/2017 09:04:45 Yunior Del Valle MD / Angeles Nieto Interpreting Provider: Yunior Del Valle MD Consult Discharge Plan - Plan Referrals: one week,wound check [Other] (The office will call patient with appointment) three week,device check [Other] (Office will call patient with appointment) Tamiko Keys CNP [Primary Care Provider] - (This patient is from [facility] no PCP appointment needed) Samm Driver MD [Partnered Physician] - (Office will call patient with appointment) <Carlos Wills - Last Filed: 08/13/17 17:18> Date of Encounter: 08/13/17 - Assessment and plan (1) CHF (congestive heart failure) Current Visit: Yes Status: Chronic Qualifiers: Heart failure type: diastolic Heart failure chronicity: acute on chronic Qualified Code(s): I50.33 - Acute on chronic diastolic (congestive) heart failure (2) Chronic respiratory failure Current Visit: No Status: Chronic Qualifiers: Respiratory failure complication: hypoxia Qualified Code(s): J96.11 - Chronic respiratory failure with hypoxia (3) COPD (chronic obstructive pulmonary disease) Current Visit: Yes Status: Chronic Qualifiers: COPD type: emphysema Emphysema type: centrilobular Qualified Code(s): J43.2 - Centrilobular emphysema (4) CKD (chronic kidney disease) Current Visit: No Status: Chronic Qualifiers: Chronic kidney disease stage: stage 3 (moderate) Qualified Code(s): N18.3 - Chronic kidney disease, stage 3 (moderate) (5) Restless legs syndrome Current Visit: No Status: Chronic (6) PAF (paroxysmal atrial fibrillation) Current Visit: Yes Status: Chronic (7) Bradycardia Current Visit: Yes Status: Resolved (8) Acute kidney injury Current Visit: Yes Status: Resolved (9) Anemia Current Visit: Yes Status: Chronic Qualifiers: Anemia type: other cause Other causes of anemia: chronic disease, other Qualified Code(s): D63.8 - Anemia in other chronic diseases classified elsewhere (10) Hypertension Current Visit: Yes Status: Chronic Qualifiers: Hypertension type: essential hypertension Qualified Code(s): I10 - Essential (primary) hypertension - Constitutional Vitals: Temp Pulse Resp BP Pulse Ox 100.0 F H 103 18 123/60 95 08/13/17 16:29 08/13/17 16:29 08/13/17 16:41 08/13/17 16:29 08/13/17 16:41 Internal Medicine: Result - Labs CBC & Chem 7: 08/12/17 03:55 08/13/17 03:24 Labs: BMP 08/13/17 03:24 Sodium 136 Potassium 3.5 Chloride 102 Carbon Dioxide 26 BUN 42 H Creatinine 0.98 Glucose 109 H Calcium 8.8 Cardiac Enzymes 08/13/17 Range/Units 08:58 Troponin I 0.05 H* (< 0.04) ng/mL - ABG Interpretation ABG results: ABG ABG pH 7.39 pH Units (7.32-7.45) 08/11/17 17:42 ABG pCO2 44 mmHg (35-45) 08/11/17 17:42 ABG pO2 89 mmHg (85-104) 08/11/17 17:42 ABG O2 Saturation 97 % (95-98) 08/11/17 17:42 - Impressions Impressions Chest X-Ray 08/13/17 08:34 IMPRESSION: Stable enlarged cardiac silhouette with mild progressive interstitial pulmonary edema. D/ / 08/13/2017 09:04:45 Yunior Del Valle MD / Angeles Nieto Interpreting Provider: Yunior Del Valle MD - Attending Attestation I examined this patient and my medical decision-making was reviewed with the Resident Physician on 08/13/17. I agree with the documented findings, disposition and treatment plan as described except to the extent set forth below. Ms Evans is currently admitted for acute bradycardia. She is now tachycardic and dyspneic. She remains moderate to high risk due to potential for worsening clinical status. Ms Evans does not feel well this AM. No CP but SOB. Heart rate now tachy. No fever. Chest more congested. at bedside. Exam alert Mod distress Mucus membranes dry Heart irreg and tachy Lungs with rhonchi Abd soft I/P 1. CHF 2. Tachycardia Further diagnoses and plan as above.
--- NOTE | 2017-08-13 14:53 | Electrocardiograph Report ---
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
--- NOTE | 2017-08-13 15:31 | Electrocardiograph Report ---
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
[2017-08-13] MEDS: *HR* OxyCODONE/APAP 5/325 TABLET PO PRN (17:24)
[2017-08-13] MEDS ORDERED: *HR* Metoprolol 5 MG/5 ML VIAL IVP ONE ×2 (17:56→18:04)
[2017-08-14] MEDS: *HR* Heparin 5,000 UNIT/ML VIAL SQ SCH ×3 (00:12→15:15)
[2017-08-14] MEDS: Ipratropium/Albuterol Neb 3 ML IH SCH ×7 (00:37→23:53)
[2017-08-14 06:22] LABS: Basophils % 0.2 %; Eosinophils # 0.1 K/mcL (0.0-0.6); Eosinophils % 1.7 %; Hematocrit 27.5 % (35.3-44.9); Hemoglobin 8.2 g/dL (11.5-15.4); Immature Granulocytes % 0.6 % (0-4); Lymphocytes % 12.1 %; Mean Corpuscular HGB Conc 29.8 g/dL (31.6-35.5); Mean Corpuscular Hemoglobin 28.2 pg (28.0-33.3); Mean Corpuscular Volume 94.5 fL (83.0-100.0); Monocytes # 0.6 K/mcL (0.0-1.3); Monocytes % 7.5 %; Neutrophils # 6.5 K/mcL (1.6-8.9); Platelet Count 278 K/mcL (140-400); Red Blood Count 2.91 M/mcL (3.82-4.97); Red Cell Distribution Width 15.9 % (11.5-14.5); Segmented Neutrophils % 77.9 %
[2017-08-14 06:39] LABS: BUN/Creatinine Ratio 31 (6-26); Blood Urea Nitrogen 22 mg/dL (8-23); Calcium 8.7 mg/dL (8.6-10.3); Carbon Dioxide 31 mEq/L (23-29); Chloride 98 mEq/L (98-107); Glucose 106 mg/dL (70-105); Osmolality,Calculated 284 (280-300); Potassium 3.4 mEq/L (3.5-5.1); Sodium 135 mEq/L (136-145); eGFR For African Americans > 60 (> 60); eGFR For Non-African Americans > 60 (> 60)
[2017-08-14] MEDS: Budesonide/Formoterol 160/4.5 MDI IH SCH ×2 (07:42→20:14)
[2017-08-14] MEDS: Aspirin 81 MG TAB.CHEW PO SCH (08:39)
[2017-08-14] MEDS: *HR* Amiodarone 200 MG TABLET PO SCH (08:39)
[2017-08-14] MEDS ORDERED: Furosemide 20 MG/2 ML VIAL IVP SCH (09:00)
--- NOTE | 2017-08-14 10:45 | Internal Med Progress Note ---
Date of Encounter: 08/14/17 Time of Encounter: 10:43 - Assessment and plan (1) Hypokalemia Current Visit: No Status: Acute Assessment and plan: Replace today. (2) CHF (congestive heart failure) Current Visit: Yes Status: Acute Assessment and plan: She appears to be breathing better today. Will be cautious with diuresis at this time. Bicarb slightly up today. Qualifiers: Heart failure type: diastolic Heart failure chronicity: acute on chronic Qualified Code(s): I50.33 - Acute on chronic diastolic (congestive) heart failure (3) Chronic respiratory failure Current Visit: No Status: Chronic Assessment and plan: Continue oxygen supplementation. Qualifiers: Respiratory failure complication: hypoxia Qualified Code(s): J96.11 - Chronic respiratory failure with hypoxia (4) COPD (chronic obstructive pulmonary disease) Current Visit: Yes Status: Chronic Assessment and plan: Does not appear to be in acute exacerbation at this time. Qualifiers: COPD type: emphysema Emphysema type: centrilobular Qualified Code(s): J43.2 - Centrilobular emphysema (5) CKD (chronic kidney disease) Current Visit: No Status: Chronic Assessment and plan: Monitoring. Avoid nephrotoxins as able. Qualifiers: Chronic kidney disease stage: stage 3 (moderate) Qualified Code(s): N18.3 - Chronic kidney disease, stage 3 (moderate) (6) Restless legs syndrome Current Visit: No Status: Chronic Assessment and plan: Continue home medications (7) PAF (paroxysmal atrial fibrillation) Current Visit: Yes Status: Chronic Assessment and plan: Currently is tachycardic. Appears to be sinus at this time. (8) Bradycardia Current Visit: Yes Status: Resolved Assessment and plan: Resolved. (9) Acute kidney injury Current Visit: Yes Status: Resolved Assessment and plan: Resolved. (10) Anemia Current Visit: Yes Status: Chronic Assessment and plan: Hemoglobin is about her baseline at this time. She fluctuates during admissions. No evidence of overt bleeding. Qualifiers: Anemia type: other cause Other causes of anemia: chronic disease, other Qualified Code(s): D63.8 - Anemia in other chronic diseases classified elsewhere (11) Hypertension Current Visit: Yes Status: Chronic Assessment and plan: Controlled today. Had some low blood pressures last night. Monitoring. Qualifiers: Hypertension type: essential hypertension Qualified Code(s): I10 - Essential (primary) hypertension - Subjective Interval history: Ms Evans is currently admitted for bradycardia and CHF exacerbation. She remains moderate to high risk due to potential for worsening clinical status. Ms Evans says she knows her heartrate is up some. No CP. Breathing better from yesterday. Feels very tired and weak. No fever. Wants "potato chips" as she "wants salt." I told her she should not have that right now. Says her stools are a little soft - went 3 times today already. No abd pain. - Constitutional Vitals: Temp Pulse Resp BP Pulse Ox 98.1 F 106 18 132/61 95 08/14/17 07:27 08/14/17 09:18 08/14/17 07:42 08/14/17 07:27 08/14/17 09:18 General appearance: Present: A&O X 3, pleasant, answers questions appropriately - Head Head exam: Present: normocephalic - Eye Eye exam: Present: EOMI, conjuntiva pink - ENT ENT exam: Present: mucous membranes moist - Respiratory Respiratory exam: Present: CTAB. Absent: rhonchi, wheezes Additional comments: Lungs clearer anteriorly and laterally. - Cardiovascular Cardiovascular exam: Present: irregular rhythm, tachycardia - GI/Abdominal GI/Abdominal exam: Present: soft. Absent: tenderness - Extremities Exam Extremities exam: Present: pedal edema, warm. Absent: tenderness - Neurological Exam Neurological exam: Present: alert, oriented X3 - Skin Skin exam: Present: dry, warm Internal Medicine: Result - Labs CBC & Chem 7: 08/14/17 06:02 08/14/17 06:02 Labs: Short CBC 08/14/17 Range/Units 06:02 WBC 8.3 (4.3-11.1) K/mcL Hgb 8.2 L (11.5-15.4) g/dL Hct 27.5 L (35.3-44.9) % Plt Count 278 (140-400) K/mcL Neutrophils # 6.5 (1.6-8.9) K/mcL BMP 08/14/17 06:02 Sodium 135 L Potassium 3.4 L Chloride 98 Carbon Dioxide 31 H BUN 22 Creatinine 0.71 Glucose 106 H Calcium 8.7 Cardiac Enzymes 08/13/17 08/13/17 08/13/17 Range/Units 08:58 18:09 23:44 Troponin I 0.05 H* 0.06 H* 0.04 H* (< 0.04) ng/mL - ABG Interpretation ABG results: ABG ABG pH 7.39 pH Units (7.32-7.45) 08/11/17 17:42 ABG pCO2 44 mmHg (35-45) 08/11/17 17:42 ABG pO2 89 mmHg (85-104) 08/11/17 17:42 ABG O2 Saturation 97 % (95-98) 08/11/17 17:42 Consult Discharge Plan - Plan Referrals: one week,wound check [Other] (The office will call patient with appointment) three week,device check [Other] (Office will call patient with appointment) Tamiko Keys CNP [Primary Care Provider] - (This patient is from [facility] no PCP appointment needed) Samm Driver MD [Partnered Physician] - (Office will call patient with appointment)
[2017-08-14] MEDS ORDERED: NON-FORMULARY MEDICATION 1 EACH EACH (Oxygen [Oxygen] 3 L) NS SCH (11:00)
[2017-08-14] MEDS ORDERED: *HR* Metoprolol 5 MG/5 ML VIAL IVP ONE ×4 (12:29→21:16)
--- NOTE | 2017-08-14 12:30 | Cardiology Progress Note ---
Date of Encounter: 08/14/17 Time of Encounter: 09:30 Assessment and Plan (1) Symptomatic bradycardia Current Visit: Yes Status: Resolved Per cardiology: -Patient presented with symptomatic bradycardia, HR 30--sinus david. QT/QTc 644, 509 ms. Reports syncopal episode last week. -ECG demonstrated SR 06/29/2017--HR 74 bpm. QT/QTc 437,465 ms. -EF normal per TTE 05/2017. TSH elevated, will defer mgmt to primary service. CHIQUITA upon presentation. -Home medications included: amiodarone 200 mg BID, Toprol 125 mg BID, and Cardizem 360 mg daily. -Temporary pacer inserted on 08/11/17, HR did not respond to epi or atropine. Temporary wire now removed. -No indication for PPM at this juncture. -Average HR previous 12 hours noted to be 105, ST. -Amiodarone 200mg daily resumed yesterday. -Per discussion with , will not start AV anuj blockers at this time. -Cardiology will sign off and will follow in outpatient setting. FOllow up set. (2) Elevated troponin Current Visit: Yes Status: Acute Per cardiology: -Troponins flat and adynamic in the setting of bradycardia, CHIQUITA. -Denies chest pain. -No acute ischemic ECG changes noted. -TTE with preserved LVEF, no segmental wall motion abnormalities noted. -Do not suspect NSTEMI, suspect demand ischemia related to above. NO cardiac rehab consult warranted. (3) PAF (paroxysmal atrial fibrillation) Current Visit: Yes Status: Chronic Hx of PAF. Recent hospitalization May 2017 with afib with RVR, rate was difficult to control at that time. Home medications included: amiodarone 200 mg BID, Cardizem 360 mg daily, and Toprol 125 mg BID. Has not been on AC d/t bleeding. H/H downtrended today, suspect dilutional. Continue to monitor closely. Patient and family aware of increased risk of CVA AV anuj blocking agents on hold, but resuming Amiodarone at 200mg daily today. (4) CAD (coronary artery disease) Current Visit: Yes Status: Chronic Hx of CAD. [facility]-- Patent ESTEVEZ to LAD. Occluded SVG to OM and Diagonal. Severe diffuse circumflex artery stenosis and in-stent restenosis ( small diseased distal vessel). On asa, statin. No BB secondary to bradycardia. Stress test 10/2016 negative for ischemia. Qualifiers: Coronary Disease-Associated Artery/Lesion type: bypass graft [place] vs. transplanted heart: [place] heart Associated angina: without angina Qualified Code(s): I25.810 - Atherosclerosis of coronary artery bypass graft(s) without angina pectoris Discussion w patient/family: The assessment and plan as outlined above was discussed with the patient and/or family members who expressed understanding and agreement. All questions were answered. Thank you for involving us in the care of your patient. Please call with any questions. Discussed and reviewed with . Subjective Principal diagnosis: Bradycardia Interval history: Patient states she feels much better today. States breathing is much improved. Denies chest pain, however reports occasional palpitation. Objective Vital Signs, Last 4 Hours Temp Pulse Resp BP Pulse Ox 08/14/17 11:47 98.3 F 110 18 114/53 93 08/14/17 11:36 18 95 08/14/17 09:18 106 95 General: Conversant, No Apparent Distress HEENT: Atraumatic, Normocephaly, Mucus Membranes Moist Neck: No JVD, Normal carotid pulses Cardiac: Reg Rate and Rhythm, Normal S1 and S2, No Murmur Lungs: Normal Breath Sounds, No Wheeze, Rales, Rhonchi Neuro: Alert and responsive, No focal deficits noted Abdomen: Soft, Non-Tender Skin: No rashes noted on visualized skin Musculoskeletal: No Chest Wall Tenderness Extremities: No Clubbing, No Cyanosis, No Edema, Normal Pulses Results 08/14/17 06:02 08/14/17 06:02 Lab Results Active Medications Acetaminophen (Tylenol) 500 mg PO Q6HR PRN PRN Reason: Mild Pain Stop: 02/10/18 15:53 Last Admin: 08/13/17 20:10 Dose: 500 mg Albuterol Sulfate (Proventil Neb) 2.5 mg AER Q2H PRN PRN Reason: SOB/WHEEZING Stop: 02/11/18 15:08 Albuterol/Ipratropium (Duoneb) 3 ml IH [id number] CONRADO Stop: 02/10/18 20:01 Last Admin: 08/14/17 11:35 Dose: 3 ml Amiodarone HCl (Cordarone) 200 mg PO DAILY [facility] Stop: 02/12/18 10:01 Last Admin: 08/14/17 08:39 Dose: 200 mg Aspirin (Aspirin) 81 mg PO DAILY [facility] Stop: 02/13/18 09:01 Last Admin: 08/14/17 08:39 Dose: 81 mg Budesonide/Formoterol Fumarate (Symbicort) 2 puff IH BIDRESP [facility] Stop: 02/11/18 22:01 Last Admin: 08/14/17 07:42 Dose: 2 puff Citalopram Hydrobromide (Celexa) 20 mg PO HS [facility] Stop: 02/10/18 21:01 Last Admin: 08/13/17 20:10 Dose: 20 mg Docusate Sodium (Colace) 100 mg PO BID CONRADO PRN Reason: Protocol Stop: 02/10/18 21:01 Last Admin: 08/14/17 08:39 Dose: 100 mg Furosemide (Lasix) 40 mg PO DAILY [facility] Stop: 02/14/18 09:01 Heparin Sodium (Porcine) (Heparin) 5,000 unit SQ Q8H [facility] Stop: 02/11/18 15:16 Last Admin: 08/14/17 08:39 Dose: 5,000 unit Isosorbide Mononitrate (Imdur) 60 mg PO QAM [facility] Stop: 02/14/18 09:01 Omeprazole ([facility]ilosec) [facility] [place] Stop: 02/11/18 09:01 Last Admin: 08/14/17 08:39 Dose: 20 mg Ondansetron HCl (Zofran) 4 mg IVP Q8HR PRN PRN Reason: Nausea And Vomiting Stop: 02/10/18 15:53 Last Admin: 08/11/17 22:48 Dose: 4 mg Oxycodone/Acetaminophen (Percocet 5/325) 1 each PO Q6HR PRN PRN Reason: Pain Stop: 02/12/18 17:04 Last Admin: 08/13/17 17:24 Dose: 1 each Potassium Chloride (Potassium Chloride) 20 meq PO QAM [facility] Stop: 02/14/18 09:01 Pramipexole Dihydrochloride (Mirapex) 0.5 mg PO BID [facility] Stop: 02/10/18 21:01 Last Admin: 08/14/17 08:39 Dose: 0.5 mg Simvastatin (Zocor) 10 mg PO HS [facility] Stop: 02/10/18 21:01 Last Admin: 03/23/18 20:11 Dose: 10 mg Laboratory Tests 08/11/17 08/13/17 08/13/17 14:39 08:58 18:09 Hgb Creatinine 1.96 H Troponin I 0.04 H* 0.05 H* 0.06 H* 08/13/17 08/14/17 08/14/17 23:44 06:02 06:02 Hgb 8.2 L Creatinine 0.71 Troponin I 0.04 H* - Imaging and Cardiology Chest Xray: report reviewed Echo: report reviewed - EKG Interpretation EKG results cardiology: other (Telemetry reviewed with average HR previous 12 hours noted to be 105, ST. PVCs noted.) Consult Discharge Plan - Plan Referrals: one week,wound check [Other] (The office will call patient with appointment) three week,device check [Other] (Office will call patient with appointment) Tamiko Keys CNP [Primary Care Provider] - (This patient is from [facility] no PCP appointment needed) Samm Driver MD [Partnered Physician] - (Office will call patient with appointment)
[2017-08-14] MEDS: *HR* OxyCODONE/APAP 5/325 TABLET PO PRN (15:15)
[2017-08-14] MEDS ORDERED: Hydrocortisone Acetate 25 MG RECTAL SUPPOSITORY RC PRN (16:57)
[2017-08-15] MEDS: *HR* Heparin 5,000 UNIT/ML VIAL SQ SCH ×3 (00:02→15:15)
[2017-08-15] MEDS: Ipratropium/Albuterol Neb 3 ML IH SCH ×5 (03:56→19:55)
[2017-08-15 07:16] LABS: Hematocrit 27.6 % (35.3-44.9); Hemoglobin 8.3 g/dL (11.5-15.4); Mean Corpuscular HGB Conc 30.1 g/dL (31.6-35.5); Mean Corpuscular Volume 93.2 fL (83.0-100.0); Platelet Count 301 K/mcL (140-400); Red Blood Count 2.96 M/mcL (3.82-4.97); Red Cell Distribution Width 15.8 % (11.5-14.5)
[2017-08-15 07:18] LABS: BUN/Creatinine Ratio 18 (6-26); Blood Urea Nitrogen 14 mg/dL (8-23); Calcium 8.7 mg/dL (8.6-10.3); Carbon Dioxide 29 mEq/L (23-29); Chloride 96 mEq/L (98-107); Glucose 94 mg/dL (70-105); Magnesium 1.9 mg/dL (1.6-2.6); Osmolality,Calculated 272 (280-300); Potassium 3.9 mEq/L (3.5-5.1); Sodium 131 mEq/L (136-145); eGFR For African Americans > 60 (> 60); eGFR For Non-African Americans > 60 (> 60)
[2017-08-15] MEDS: Budesonide/Formoterol 160/4.5 MDI IH SCH ×2 (07:36→19:55)
[2017-08-15] MEDS: Isosorbide MONOnitrate (24 HR) 60 MG TAB.ER.24H PO SCH (08:00)
[2017-08-15] MEDS: Aspirin 81 MG TAB.CHEW PO SCH (08:00)
[2017-08-15] MEDS: Furosemide 40 MG TABLET PO SCH (08:01)
[2017-08-15] MEDS: *HR* Amiodarone 200 MG TABLET PO SCH (08:01)
--- NOTE | 2017-08-15 16:58 | Internal Med Progress Note ---
Date of Encounter: 08/15/17 Time of Encounter: 15:30 - Assessment and plan (1) Night sweats Current Visit: Yes Status: Acute Assessment and plan: Takes Celexa at night. Will decrease dose and see if this helps. (2) Hypokalemia Current Visit: No Status: Resolved Assessment and plan: Will continue to follow. (3) CHF (congestive heart failure) Current Visit: Yes Status: Acute Assessment and plan: Clinically improving today. Continue meds same today. Reassess volume status and labs tomorrow. Qualifiers: Heart failure type: diastolic Heart failure chronicity: acute on chronic Qualified Code(s): I50.33 - Acute on chronic diastolic (congestive) heart failure (4) Chronic respiratory failure Current Visit: No Status: Chronic Assessment and plan: Continue oxygen supplementation. Qualifiers: Respiratory failure complication: hypoxia Qualified Code(s): J96.11 - Chronic respiratory failure with hypoxia (5) COPD (chronic obstructive pulmonary disease) Current Visit: Yes Status: Chronic Assessment and plan: Does not appear to be in acute exacerbation at this time. Qualifiers: COPD type: emphysema Emphysema type: centrilobular Qualified Code(s): J43.2 - Centrilobular emphysema (6) CKD (chronic kidney disease) Current Visit: No Status: Chronic Assessment and plan: Monitoring. Avoid nephrotoxins as able. Qualifiers: Chronic kidney disease stage: stage 3 (moderate) Qualified Code(s): N18.3 - Chronic kidney disease, stage 3 (moderate) (7) Restless legs syndrome Current Visit: No Status: Chronic Assessment and plan: Continue home medications (8) PAF (paroxysmal atrial fibrillation) Current Visit: Yes Status: Chronic Assessment and plan: Remains tachycardic but appears to be sinus at this time (9) Bradycardia Current Visit: Yes Status: Resolved (10) Acute kidney injury Current Visit: Yes Status: Resolved (11) Anemia Current Visit: Yes Status: Chronic Assessment and plan: Hemoglobin lower today. No overt signs of bleeding. Recheck in AM. Qualifiers: Anemia type: other cause Other causes of anemia: chronic disease, other Qualified Code(s): D63.8 - Anemia in other chronic diseases classified elsewhere (12) Hypertension Current Visit: Yes Status: Chronic Assessment and plan: Controlled today. Qualifiers: Hypertension type: essential hypertension Qualified Code(s): I10 - Essential (primary) hypertension (13) UTI (urinary tract infection) Current Visit: No Status: Acute Assessment and plan: Hx of E coli in urine. Will treat with abx. Qualifiers: Urinary tract infection type: acute cystitis Hematuria presence: with hematuria Qualified Code(s): N30.01 - Acute cystitis with hematuria - Subjective Interval history: Ms Evans is currently admitted for bradycardia and CHF exacerbation. She remains moderate to high risk due to potential for worsening clinical status. Ms Evans is complaining of night sweats. She says it has been going on at least a couple of months. Soaks bed. No fevers. Heart rate still tachycardic. No CP or worsening dyspnea. No GI issues. Not sleeping well. - Constitutional Vitals: Temp Pulse Resp BP Pulse Ox 99.3 F 103 16 119/52 97 08/15/17 15:30 08/15/17 15:30 08/15/17 15:43 08/15/17 15:30 08/15/17 15:43 General appearance: Present: A&O X 3, pleasant, answers questions appropriately - Head Head exam: Present: normocephalic - Eye Eye exam: Present: conjuntiva pink - ENT ENT exam: Present: mucous membranes dry - Respiratory Respiratory exam: Present: decreased breath sounds, rhonchi. Absent: rales, wheezes - Cardiovascular Cardiovascular exam: Present: RRR, tachycardia - GI/Abdominal GI/Abdominal exam: Present: normal bowel sounds, soft. Absent: mass, tenderness - Extremities Exam Extremities exam: Present: warm. Absent: tenderness - Neurological Exam Neurological exam: Present: alert, oriented X3 - Skin Skin exam: Present: dry, warm Internal Medicine: Result - Labs CBC & Chem 7: 08/15/17 06:39 08/15/17 06:39 Labs: Short CBC 08/15/17 Range/Units 06:39 WBC 8.7 (4.3-11.1) K/mcL Hgb 8.3 L (11.5-15.4) g/dL Hct 27.6 L (35.3-44.9) % Plt Count 301 (140-400) K/mcL BMP 08/15/17 06:39 Sodium 131 L Potassium 3.9 Chloride 96 L Carbon Dioxide 29 BUN 14 Creatinine 0.76 Glucose 94 Calcium 8.7 - ABG Interpretation ABG results: ABG ABG pH 7.39 pH Units (7.32-7.45) 08/11/17 17:42 ABG pCO2 44 mmHg (35-45) 08/11/17 17:42 ABG pO2 89 mmHg (85-104) 08/11/17 17:42 ABG O2 Saturation 97 % (95-98) 08/11/17 17:42 Consult Discharge Plan - Plan Referrals: one week,wound check [Other] (The office will call patient with appointment) three week,device check [Other] (Office will call patient with appointment) Tamiko Keys CNP [Primary Care Provider] - (This patient is from [facility] no PCP appointment needed) Samm Driver MD [Partnered Physician] - (Office will call patient with appointment)
[2017-08-15] MEDS ORDERED: *HR* Metoprolol 5 MG/5 ML VIAL IVP PRN (17:09)
[2017-08-15] MEDS: *HR* OxyCODONE/APAP 5/325 TABLET PO PRN (17:38)
[2017-08-15] MEDS: cefTRIAXone 1,000 MG in Water for inj. (sterile) 20 ML 10 ML IVPB SCH (17:40)
[2017-08-15] MEDS: Melatonin 3 MG TABLET PO SCH (21:45)
[2017-08-16] MEDS: *HR* Heparin 5,000 UNIT/ML VIAL SQ SCH ×4 (00:12→20:39)
[2017-08-16] MEDS: Ipratropium/Albuterol Neb 3 ML IH SCH ×7 (00:45→23:41)
[2017-08-16] MEDS: *HR* OxyCODONE/APAP 5/325 TABLET PO PRN ×3 (01:25→23:46)
[2017-08-16 04:09] LABS: Hematocrit 27.9 % (35.3-44.9); Hemoglobin 8.4 g/dL (11.5-15.4); Mean Corpuscular HGB Conc 30.1 g/dL (31.6-35.5); Mean Corpuscular Hemoglobin 28.2 pg (28.0-33.3); Mean Corpuscular Volume 93.6 fL (83.0-100.0); Platelet Count 304 K/mcL (140-400); Red Blood Count 2.98 M/mcL (3.82-4.97); Red Cell Distribution Width 15.7 % (11.5-14.5)
[2017-08-16 04:25] LABS: BUN/Creatinine Ratio 16 (6-26); Blood Urea Nitrogen 12 mg/dL (8-23); Carbon Dioxide 29 mEq/L (23-29); Chloride 94 mEq/L (98-107); Potassium 3.9 mEq/L (3.5-5.1); Sodium 131 mEq/L (136-145); eGFR For African Americans > 60 (> 60)
[2017-08-16 04:26] LABS: Calcium 8.8 mg/dL (8.6-10.3); Glucose 91 mg/dL (70-105); Magnesium 1.8 mg/dL (1.6-2.6); Osmolality,Calculated 271 (280-300); eGFR For Non-African Americans > 60 (> 60)
[2017-08-16] MEDS: Budesonide/Formoterol 160/4.5 MDI IH SCH ×2 (07:45→19:57)
[2017-08-16] MEDS: Aspirin 81 MG TAB.CHEW PO SCH (07:46)
[2017-08-16] MEDS: Isosorbide MONOnitrate (24 HR) 60 MG TAB.ER.24H PO SCH (07:46)
[2017-08-16] MEDS: Furosemide 40 MG TABLET PO SCH (07:47)
[2017-08-16] MEDS: *HR* Amiodarone 200 MG TABLET PO SCH (07:47)
--- NOTE | 2017-08-16 11:14 | Internal Med Progress Note ---
<Eleazar Benito - Last Filed: 08/16/17 11:12> Date of Encounter: 08/16/17 Time of Encounter: 11:12 - Assessment and plan (1) UTI (urinary tract infection) Current Visit: Yes Status: Acute Assessment and plan: Klebsiella uti continue ceftriaxone day 2 Qualifiers: Urinary tract infection type: acute cystitis Hematuria presence: with hematuria Qualified Code(s): N30.01 - Acute cystitis with hematuria (2) PAF (paroxysmal atrial fibrillation) Current Visit: Yes Status: Chronic Assessment and plan: This morning patient has sinus tachycardia. Patient started on amiodarone 200 mg daily today. on PRN lopressor for tachycardia (used multiple times over the weekend). appreciate cardiology reccomendations (3) CHF exacerbation Current Visit: Yes Status: Resolved Assessment and plan: resolved continue lasix PO daily Patient started on daily Lasix. Strict I's and O's. Cardiac diet. O2 weaned down to home dose of 3L Qualifiers: Qualified Code(s): I50.33 - Acute on chronic diastolic (congestive) heart failure (4) CAD (coronary artery disease) Current Visit: Yes Status: Chronic Assessment and plan: Status post left heart catheter 10/2015 which showed occluded SVG to OM and diagonal and severe diffuse circumflex artery stenosis and in-stent restenosis. Continue aspirin, statin. Qualifiers: Coronary Disease-Associated Artery/Lesion type: bypass graft [place] vs. transplanted heart: [place] heart Associated angina: without angina Qualified Code(s): I25.810 - Atherosclerosis of coronary artery bypass graft(s) without angina pectoris (5) COPD (chronic obstructive pulmonary disease) Current Visit: Yes Status: Chronic Assessment and plan: Stable Not an exacerbation Continue oxygen supplementation and home nebulizer treatment. Qualifiers: COPD type: emphysema Emphysema type: centrilobular Qualified Code(s): J43.2 - Centrilobular emphysema (6) Hypertension Current Visit: Yes Status: Chronic Assessment and plan: Patient's blood pressure has normalized. Continue Lasix. Qualifiers: Hypertension type: essential hypertension Qualified Code(s): I10 - Essential (primary) hypertension (7) Hyperlipidemia Current Visit: Yes Status: Chronic Assessment and plan: Continue home statin. Qualifiers: Hyperlipidemia type: unspecified Qualified Code(s): E78.5 - Hyperlipidemia , unspecified (8) Anemia Current Visit: Yes Status: Chronic Assessment and plan: Stable. continue to monitor Qualifiers: Anemia type: other cause Other causes of anemia: chronic disease, other Qualified Code(s): D63.8 - Anemia in other chronic diseases classified elsewhere (9) Night sweats Current Visit: Yes Status: Acute Assessment and plan: continues to have night sweats decreased celexa dose may be 2nd to UTI as well (10) Symptomatic bradycardia Current Visit: Yes Status: Resolved (11) Restless legs syndrome Current Visit: Yes Status: Chronic Assessment and plan: continue home medicaiton - Subjective Interval history: Patient resting comfortably in bed today. She has no complaints. She denies headache, chest pain, shortness of breath, abdominal pain. She Reports continued lower extremity pain. Patient remains tachycardic. - Constitutional Vitals: Temp Pulse Resp BP Pulse Ox 97.7 F 113 18 112/74 94 08/16/17 07:26 08/16/17 10:12 08/16/17 10:12 08/16/17 07:27 08/16/17 10:12 General appearance: Present: A&O X 3, pleasant, answers questions appropriately - Other Additional findings: General: Pleasant moderate distress Heart: Sinus tachycardia Lungs: CTAB Abdomen: Soft nontender, nondistended positive bowel sounds Skin: warm and dry Extremities: Absent pedal edema, Neuro: Alert oriented 3 Vascular: Pedal and radial pulses 2 out of 4 Internal Medicine: Result - Labs CBC & Chem 7: 08/16/17 02:56 08/16/17 02:56 Labs: Short CBC 08/16/17 Range/Units 02:56 WBC 7.0 (4.3-11.1) K/mcL Hgb 8.4 L (11.5-15.4) g/dL Hct 27.9 L (35.3-44.9) % Plt Count 304 (140-400) K/mcL BMP 08/16/17 02:56 Sodium 131 L Potassium 3.9 Chloride 94 L Carbon Dioxide 29 BUN 12 Creatinine 0.75 Glucose 91 Calcium 8.8 - ABG Interpretation ABG results: ABG ABG pH 7.39 pH Units (7.32-7.45) 08/11/17 17:42 ABG pCO2 44 mmHg (35-45) 08/11/17 17:42 ABG pO2 89 mmHg (85-104) 08/11/17 17:42 ABG O2 Saturation 97 % (95-98) 08/11/17 17:42 Consult Discharge Plan - Plan Referrals: one week,wound check [Other] (The office will call patient with appointment) three week,device check [Other] (Office will call patient with appointment) Tamiko Keys CNP [Primary Care Provider] - (This patient is from [facility] no PCP appointment needed) Samm Driver MD [Partnered Physician] - (Office will call patient with appointment) <Carlos Wills - Last Filed: 08/16/17 18:31> Date of Encounter: 08/16/17 - Assessment and plan (1) UTI (urinary tract infection) Current Visit: Yes Status: Acute Qualifiers: Urinary tract infection type: acute cystitis Hematuria presence: with hematuria Qualified Code(s): N30.01 - Acute cystitis with hematuria (2) Night sweats Current Visit: Yes Status: Acute (3) Hypokalemia Current Visit: No Status: Resolved (4) CHF (congestive heart failure) Current Visit: Yes Status: Acute Qualifiers: Heart failure type: diastolic Heart failure chronicity: acute on chronic Qualified Code(s): I50.33 - Acute on chronic diastolic (congestive) heart failure (5) Chronic respiratory failure Current Visit: No Status: Chronic Qualifiers: Respiratory failure complication: hypoxia Qualified Code(s): J96.11 - Chronic respiratory failure with hypoxia (6) COPD (chronic obstructive pulmonary disease) Current Visit: Yes Status: Chronic Qualifiers: COPD type: emphysema Emphysema type: centrilobular Qualified Code(s): J43.2 - Centrilobular emphysema (7) CKD (chronic kidney disease) Current Visit: No Status: Chronic Qualifiers: Chronic kidney disease stage: stage 3 (moderate) Qualified Code(s): N18.3 - Chronic kidney disease, stage 3 (moderate) (8) Restless legs syndrome Current Visit: Yes Status: Chronic (9) PAF (paroxysmal atrial fibrillation) Current Visit: Yes Status: Chronic (10) Bradycardia Current Visit: Yes Status: Resolved (11) Acute kidney injury Current Visit: Yes Status: Inactive (12) Anemia Current Visit: Yes Status: Chronic Qualifiers: Anemia type: other cause Other causes of anemia: chronic disease, other Qualified Code(s): D63.8 - Anemia in other chronic diseases classified elsewhere (13) Hypertension Current Visit: Yes Status: Chronic Qualifiers: Hypertension type: essential hypertension Qualified Code(s): I10 - Essential (primary) hypertension - Constitutional Vitals: Temp Pulse Resp BP Pulse Ox 98.9 F 102 20 110/70 96 08/16/17 15:24 08/16/17 18:06 08/16/17 18:06 08/16/17 15:24 08/16/17 18:09 Internal Medicine: Result - Labs CBC & Chem 7: 08/16/17 02:56 08/16/17 02:56 Labs: Short CBC 08/16/17 Range/Units 02:56 WBC 7.0 (4.3-11.1) K/mcL Hgb 8.4 L (11.5-15.4) g/dL Hct 27.9 L (35.3-44.9) % Plt Count 304 (140-400) K/mcL BMP 08/16/17 02:56 Sodium 131 L Potassium 3.9 Chloride 94 L Carbon Dioxide 29 BUN 12 Creatinine 0.75 Glucose 91 Calcium 8.8 - ABG Interpretation ABG results: ABG ABG pH 7.39 pH Units (7.32-7.45) 08/11/17 17:42 ABG pCO2 44 mmHg (35-45) 08/11/17 17:42 ABG pO2 89 mmHg (85-104) 08/11/17 17:42 ABG O2 Saturation 97 % (95-98) 08/11/17 17:42 - Attending Attestation I examined this patient and my medical decision-making was reviewed with the Resident Physician on 08/16/17. I agree with the documented findings, disposition and treatment plan as described except to the extent set forth below. Ms Evans is currently admitted for bradycardia. She now has episodes of MAT. She remains moderate to high risk due to potential for worsening clinical status. Ms Evans says she is feeling OK. Her heartrate is still elevated. No fever or chills but having profound night sweats. Breathing is OK. Exam Alert Comfortable Mucus membranes dry Heart tachy and irreg Lungs clear at this time Abd soft I/P 1. CHF 2. UTI Further diagnoses and plan as above.
--- NOTE | 2017-08-16 13:51 | Electrophysiology ProgressNote ---
Date of Encounter: 08/16/17 Time of Encounter: 13:48 Assessment and Plan (1) Symptomatic bradycardia Current Visit: Yes Status: Resolved Per cardiology: -Patient presented with symptomatic bradycardia, HR 30--sinus david. QT/QTc 644, 509 ms. Reports syncopal episode last week. -Home medications included: amiodarone 200 mg BID, Toprol 125 mg BID, and Cardizem 360 mg daily. -Temporary pacer inserted on 08/11/17, HR did not respond to epi or atropine. Temporary wire now removed. -No indication for PPM at this juncture. -Average HR previous 12 hours noted to be 99, SR and multifocal atrial tachycardia. -Amiodarone 200mg daily resumed. -Discussed with Dr. Samm Driver. Will restart low dose CCB--Cardizem CD 120mg daily. (2) PAF (paroxysmal atrial fibrillation) Current Visit: Yes Status: Chronic Hx of PAF. Recent hospitalization May 2017 with afib with RVR, rate was difficult to control at that time. Home medications included: amiodarone 200 mg BID, Cardizem 360 mg daily, and Toprol 125 mg BID. Has not been on AC d/t bleeding. H/H downtrended. Patient and family aware of increased risk of CVA Continue Amiodarone at 200mg daily, restarting low dose Cardizem CD 120mg daily. (3) CAD (coronary artery disease) Current Visit: Yes Status: Chronic Hx of CAD. Last [facility] 10/2015-- Patent ESTEVEZ to LAD. Occluded SVG to OM and Diagonal. Severe diffuse circumflex artery stenosis and in-stent restenosis ( small diseased distal vessel). On asa, statin. No BB secondary to bradycardia. Stress test 10/2016 negative for ischemia. Qualifiers: Coronary Disease-Associated Artery/Lesion type: bypass graft [place] vs. transplanted heart: [place] heart Associated angina: without angina Qualified Code(s): I25.810 - Atherosclerosis of coronary artery bypass graft(s) without angina pectoris (4) Multifocal atrial tachycardia Current Visit: Yes Status: Acute Reviewed EKG with Dr. Samm Driver. Appears to be MAT. Continue amiodarone 200mg daily. Start Cardizem CD 120mg daily. Discussion w patient/family: The assessment and plan as outlined above was discussed with the patient and/or family members who expressed understanding and agreement. All questions were answered. Thank you for involving us in the care of your patient. Please call with any questions. I will discuss all the above with Dr. Samm Driver and make changes as necessary. Subjective Principal diagnosis: Bradycardia Interval history: EP reconsulted due to tachycardia. HR 110s at bedside. EKG obtained, appears to be multifocal atrial tachycardia. Pt denies chest pain. Dyspnea has improved. 12 hr tele AVG HR 99, SR, MAT. Objective Vital Signs, Last 4 Hours Temp Pulse Resp BP Pulse Ox 08/16/17 12:12 118 08/16/17 12:09 118 18 94 08/16/17 11:09 98.3 F 109 17 102/51 97 08/16/17 11:06 16 95 08/16/17 10:12 113 18 94 Vital Signs Temp Pulse Resp BP Pulse Ox 08/16/17 12:12 118 08/16/17 12:09 118 18 94 08/16/17 11:09 98.3 F 109 17 102/51 97 08/16/17 11:06 16 95 08/16/17 10:12 113 18 94 08/16/17 07:57 98 08/16/17 07:48 18 98 08/16/17 07:36 93 08/16/17 07:27 90 18 112/74 98 08/16/17 07:26 97.7 F 92 19 112/74 98 08/16/17 04:55 16 92 08/16/17 02:54 97.9 F 93 20 103/46 96 08/16/17 02:32 97 08/15/17 23:27 98.1 F 101 18 115/58 95 08/15/17 20:15 98.1 F 108 18 106/60 94 08/15/17 19:55 20 99 08/15/17 19:23 103 08/15/17 15:43 16 97 08/15/17 15:30 99.3 F 89 18 119/52 95 Intake and Output 08/15/17 08/16/17 08/16/17 23:59 07:59 15:59 Intake Total 240 / 240 360 / 360 Output Total 220 / 220 275 / 275 150 / 150 Balance 20 / 20 -275 / -275 210 / 210 Intake: Oral 240 / 240 360 / 360 Output: Urine 275 / 275 150 / 150 Catheter 220 / 220 Other: Meal Dinner Breakfast Percent of Meal Consumed 50% 50% Stool Size Small Stool Consistency formed Stool Color Brown # Voids 1 1 Weight 69.3 kg Blood Glucose* 132 98 106 Patient Weight 08/16/17 23:59 Weight 69.3 kg General: Conversant, No Apparent Distress HEENT: Atraumatic, Normocephaly, Mucus Membranes Moist Neck: No JVD, Normal carotid pulses Cardiac: Reg Rate and Rhythm, Normal S1 and S2, No Murmur Lungs: Normal Breath Sounds, No Wheeze, Rales, Rhonchi Neuro: Alert and responsive, No focal deficits noted Abdomen: Soft, Non-Tender Skin: No rashes noted on visualized skin Musculoskeletal: No Chest Wall Tenderness Extremities: No Clubbing, No Cyanosis, No Edema, Normal Pulses Results 08/16/17 02:56 08/16/17 02:56 Lab Results 08/16/17 08/16/17 02:56 02:56 WBC 7.0 Hgb 8.4 L Hct 27.9 L Plt Count 304 Sodium 131 L Potassium 3.9 Chloride 94 L Carbon Dioxide 29 BUN 12 Creatinine 0.75 Glucose 91 Calcium 8.8 Magnesium 1.8 Short CBC 08/16/17 Range/Units 02:56 WBC 7.0 (4.3-11.1) K/mcL Hgb 8.4 L (11.5-15.4) g/dL Hct 27.9 L (35.3-44.9) % Plt Count 304 (140-400) K/mcL BMP 08/16/17 Range/Units 02:56 Sodium 131 L (136-145) mEq/L Potassium 3.9 (3.5-5.1) mEq/L Chloride 94 L (98-107) mEq/L Carbon Dioxide 29 (23-29) mEq/L BUN 12 (8-23) mg/dL Creatinine 0.75 (0.60-1.20) mg/dL Glucose 91 (70-105) mg/dL Calcium 8.8 (8.6-10.3) mg/dL Active Medications Acetaminophen (Tylenol) 500 mg PO Q6HR PRN PRN Reason: Mild Pain Stop: 02/10/18 15:53 Last Admin: 08/13/17 20:10 Dose: 500 mg Albuterol Sulfate (Proventil Neb) 2.5 mg AER Q2H PRN PRN Reason: SOB/WHEEZING Stop: 02/11/18 15:08 Albuterol/Ipratropium (Duoneb) 3 ml IH [id number] CONRADO Stop: 02/10/18 20:01 Last Admin: 08/16/17 11:06 Dose: 3 ml Amiodarone HCl (Cordarone) 200 mg PO DAILY CONRADO Stop: 02/12/18 10:01 Last Admin: 08/16/17 07:47 Dose: 200 mg Aspirin (Aspirin) 81 mg PO DAILY CONRADO Stop: 02/13/18 09:01 Last Admin: 08/16/17 07:46 Dose: 81 mg Budesonide/Formoterol Fumarate (Symbicort) 2 puff IH BIDRESP CONRADO Stop: 02/11/18 22:01 Last Admin: 08/16/17 07:45 Dose: 2 puff Citalopram Hydrobromide (Celexa) 10 mg PO HS CONRADO Stop: 02/14/18 21:01 Last Admin: 08/15/17 21:45 Dose: 10 mg Docusate Sodium (Colace) 100 mg PO BID CONRADO PRN Reason: Protocol Stop: 02/10/18 21:01 Last Admin: 08/16/17 07:47 Dose: 100 mg Furosemide (Lasix) 40 mg PO DAILY CONRADO Stop: 02/14/18 09:01 Last Admin: 08/16/17 07:47 Dose: 40 mg Heparin Sodium (Porcine) (Heparin) 5,000 unit SQ Q8H CONRADO Stop: 02/11/18 15:16 Last Admin: 08/16/17 06:31 Dose: 5,000 unit Hydrocortisone Acetate (Anucort-Hc) 25 mg RC BID PRN; Protocol PRN Reason: Hemorrhoids Stop: 02/13/18 16:58 Ceftriaxone Sodium 1,000 mg/ (Sterile Water) 10 mls @ 300 mls/hr IVPB Q24H CONRADO Stop: 02/14/18 18:01 Last Admin: 08/15/17 17:40 Dose: 300 mls/hr Isosorbide Mononitrate (Imdur) 60 mg PO QAM CONRADO Stop: 02/14/18 09:01 Last Admin: 08/16/17 07:46 Dose: 60 mg Melatonin (Melatonin) 3 mg PO HS [facility] Stop: 02/14/18 21:01 Last Admin: 08/15/17 21:45 Dose: 3 mg Metoprolol Tartrate (Lopressor) 2.5 mg IVP Q6HR PRN PRN Reason: heart rate sustained over 110 Stop: 02/14/18 17:10 Last Admin: 08/15/17 17:40 Dose: 2.5 mg Omeprazole (Prilosec) 20 mg PO QAM CONRADO Stop: 02/11/18 09:01 Last Admin: 08/16/17 07:47 Dose: 20 mg Ondansetron HCl (Zofran) 4 mg IVP Q8HR PRN PRN Reason: Nausea And Vomiting Stop: 02/10/18 15:53 Last Admin: 08/11/17 22:48 Dose: 4 mg Oxycodone/Acetaminophen (Percocet 5/325) 1 each PO Q6HR PRN PRN Reason: Pain Stop: 02/12/18 17:04 Last Admin: 08/16/17 01:25 Dose: 1 each Potassium Chloride (Potassium Chloride) 20 meq PO QAM CONRADO Stop: 02/14/18 09:01 Last Admin: 08/16/17 07:46 Dose: 20 meq Pramipexole Dihydrochloride (Mirapex) 0.5 mg PO BID CONRADO Stop: 02/10/18 21:01 Last Admin: 08/16/17 07:46 Dose: 0.5 mg Simvastatin (Zocor) 10 mg PO HS CONRADO Stop: 02/10/18 21:01 Last Admin: 08/15/17 21:45 Dose: 10 mg - Imaging and Cardiology Echo: report reviewed - EKG Interpretation EKG results cardiology: personally reviewed (multifocal atrial tach), other (12 hr tele AVG HR 99, SR, multifocal atrial tach) Consult Discharge Plan - Plan Referrals: one week,wound check [Other] (The office will call patient with appointment) three week,device check [Other] (Office will call patient with appointment) Tamiko Keys CNP [Primary Care Provider] - (This patient is from [facility] no PCP appointment needed) Samm Driver MD [Partnered Physician] - (Office will call patient with appointment)
[2017-08-16] MEDS: Diltiazem CD (24hr) 120 MG CAPSULE PO SCH (15:18)
[2017-08-16] MEDS: cefTRIAXone 1,000 MG in Water for inj. (sterile) 20 ML 10 ML IVPB SCH (18:00)
[2017-08-16] MEDS: Melatonin 3 MG TABLET PO SCH (20:39)
[2017-08-17] MEDS: Ipratropium/Albuterol Neb 3 ML IH SCH ×4 (04:24→16:04)
[2017-08-17 05:42] LABS: Basophils % 0.5 %; Eosinophils # 0.2 K/mcL (0.0-0.6); Eosinophils % 2.5 %; Hemoglobin 8.4 g/dL (11.5-15.4); Immature Granulocytes % 0.5 % (0-4); Lymphocytes # 1.1 K/mcL (0.6-4.6); Lymphocytes % 18.1 %; Mean Corpuscular Hemoglobin 27.8 pg (28.0-33.3); Mean Corpuscular Volume 92.7 fL (83.0-100.0); Mean Platelet Volume 9.6 fL (9.4-12.4); Monocytes # 0.6 K/mcL (0.0-1.3); Neutrophils # 4.3 K/mcL (1.6-8.9); Platelet Count 283 K/mcL (140-400); Red Blood Count 3.02 M/mcL (3.82-4.97); Red Cell Distribution Width 15.7 % (11.5-14.5); Segmented Neutrophils % 68.4 %
--- NOTE | 2017-08-17 06:29 | Electrocardiograph Report ---
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
--- NOTE | 2017-08-17 06:40 | Electrocardiograph Report ---
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
--- NOTE | 2017-08-17 07:20 | Electrocardiograph Report ---
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
[2017-08-17] MEDS: Budesonide/Formoterol 160/4.5 MDI IH SCH (07:33)
[2017-08-17] MEDS: Furosemide 40 MG TABLET PO SCH (07:40)
[2017-08-17] MEDS: Diltiazem CD (24hr) 120 MG CAPSULE PO SCH (07:40)
[2017-08-17] MEDS: *HR* Amiodarone 200 MG TABLET PO SCH (07:40)
[2017-08-17] MEDS: Aspirin 81 MG TAB.CHEW PO SCH (07:41)
[2017-08-17] MEDS: Isosorbide MONOnitrate (24 HR) 60 MG TAB.ER.24H PO SCH (07:41)
[2017-08-17] MEDS: *HR* Heparin 5,000 UNIT/ML VIAL SQ SCH ×2 (07:41→15:27)
--- NOTE | 2017-08-17 08:25 | Event Note ---
Date of Encounter: 08/17/17 Time of Encounter: 08:24 - Cardiology Event Note Cardizem CD 120mg daily added yesterday due to multifocal atrial tachycardia. Also on Amiodarone 200mg daily. HR has improved. 12 hr tele AVG HR 95. HR 90s at bedside. Cardiology signing off. Reconsult PRN. Outpt follow-up in 2-3 weeks coordinated.
--- NOTE | 2017-08-17 09:11 | Discharge Summary ---
<Eleazar Benito - Last Filed: 08/17/17 09:08> Date of Encounter: 08/17/17 Time of Encounter: 09:08 - Discharge Diagnosis (1) Symptomatic bradycardia Priority: Primary Status: Resolved (2) PAF (paroxysmal atrial fibrillation) Priority: Secondary Status: Chronic (3) UTI (urinary tract infection) Priority: Secondary Status: Acute Qualifiers: Urinary tract infection type: acute cystitis Hematuria presence: with hematuria Qualified Code(s): N30.01 - Acute cystitis with hematuria (4) CHF exacerbation Priority: Secondary Status: Resolved Qualifiers: Qualified Code(s): I50.33 - Acute on chronic diastolic (congestive) heart failure (5) CAD (coronary artery disease) Priority: Secondary Status: Chronic Qualifiers: Coronary Disease-Associated Artery/Lesion type: bypass graft [place] vs. transplanted heart: [place] heart Associated angina: without angina Qualified Code(s): I25.810 - Atherosclerosis of coronary artery bypass graft(s) without angina pectoris (6) COPD (chronic obstructive pulmonary disease) Priority: Secondary Status: Chronic Qualifiers: COPD type: emphysema Emphysema type: centrilobular Qualified Code(s): J43.2 - Centrilobular emphysema (7) Hypertension Priority: Secondary Status: Chronic Qualifiers: Hypertension type: essential hypertension Qualified Code(s): I10 - Essential (primary) hypertension (8) Hyperlipidemia Priority: Secondary Status: Chronic Qualifiers: Hyperlipidemia type: unspecified Qualified Code(s): E78.5 - Hyperlipidemia , unspecified (9) Anemia Priority: Secondary Status: Chronic Qualifiers: Anemia type: other cause Other causes of anemia: chronic disease, other Qualified Code(s): D63.8 - Anemia in other chronic diseases classified elsewhere (10) Night sweats Priority: Secondary Status: Acute Comments: Unclear etiology. Follow-up with PCP. LDH within normal limits. (11) Restless legs syndrome Priority: Secondary Status: Chronic Hospital course: Ms. Evans is a 87 year old female history of coronary artery disease with CABG , previous PCI, atrial fibrillation, COPD on 3 L O2, presented to cardiology office with heart rate in the 30s. Patient was sent to the emergency department thereafter. Patient had felt weak and tired one week before admission. At time of admission she had shortness of breath, increased oxygen requirements 5L. In the emergency department bradycardia was refractory to epinephrine and atropine. Patient's blood pressures dropped into 50 systolic. Patient was started on epinephrine GTT which then improved blood pressure. Cardiology was consultedand determined patient's bradycardia was secondary to AV anuj blockers. She was urgently taken to seed analysis laboratory assistant and a temporary pacemaker was placed. Patient also had acute kidney injury secondary to bradycardia which improved after patient was placed on temporary pacemaker. Chest x-ray showed vascular congestion and patient was started on low-dose Lasix. Patient had anemia that was stable and there is no evidence of bleeding on exam. After temporally pacemaker was removed patient was placed on amiodarone 200 mg daily. She converted to into sinus rhythm but remained sinus tachycardic. Patient required intermittent IV dose of Lopressor. Patient also had elevated troponin with no acute ischemic EKG changes and was determined by cardiology to be secondary to advanced ischemia. Patient's TTE showed preserved left ventricular ejection fraction. Patient continued to remained sinus tachycardic and was started on Cardizem 120 mg daily. She was also found to have a Klebsiella UTI and started on ceftriaxone which was since transitioned to Cefdinir upon discharge. Plan: Follow-up with cardiology, PCP. Medications include amiodarone 2 mg daily, diltiazem 120 mg daily. Discontinue metoprolol./The near 300 mg by mouth twice a day 4 days Discharge discussed with: patient, family - Time Spent with Patient Total time spent providing and/or coordinating discharge services: Greater than 30 minutes - Discharge Medications Prescriptions: Cefdinir [Omnicef] 300 mg PO BID #8 capsule Home Medications: Pantoprazole Sodium [Protonix] 40 mg PO QAM 06/10/15 [History] Isosorbide MONOnitrate (24 HR) [Imdur] 60 mg PO QAM 05/19/17 [History] Pramipexole Di-HCl [Pramipexole Dihydrochloride] 0.5 mg PO BID 05/19/17 [History ] Oxygen 3 l NS AD 06/06/17 [History] Potassium Chloride 20 meq PO QAM 06/06/17 [History] Acetaminophen [Tylenol] 500 mg PO TID 08/11/17 [History] Docusate [Colace] 100 mg PO BID 08/11/17 [History] Fluticasone/Vilanterol [Breo Ellipta 200-25 Mcg INH] 1 puff IH DAILY 08/11/17 [ History] Furosemide [Lasix] 40 mg PO DAILY 08/11/17 [History] Ipratropium/Albuterol Neb [Duoneb] 3 ml IH BID 08/11/17 [History] Ipratropium/Albuterol Neb [Duoneb] 3 ml IH Q4H PRN 08/11/17 [History] Lactose-Reduced Food [Ensure Liquid] 1 bottle PO TIDWM 08/11/17 [History] Simvastatin [Zocor] 10 mg PO HS 08/11/17 [History] Amiodarone [Cordarone] 200 mg PO DAILY tablet 08/17/17 [Rx] Aspirin 81 mg PO DAILY tab.chew 08/17/17 [Rx] Cefdinir [Omnicef] 300 mg PO BID #8 capsule 08/17/17 [Rx] Citalopram [CeleXA] 10 mg PO HS tablet 08/17/17 [Rx] Diltiazem CD (24hr) [Cardizem CD] 120 mg PO DAILY cap.er.24h 08/17/17 [Rx] Melatonin 3 mg PO HS tablet 08/17/17 [Rx] Allergies/Adverse Reactions: 3 Allergy/AdvReac Type Severity Reaction Status Date / Time Sulfa (Sulfonamide AdvReac Nausea Verified 08/11/17 15:19 Antibiotics) Date of admission: 08/11/17 16:02 Primary care physician: Tamiko Keys CNP Consults: 08/11/17 17:45 Consult to Senior Mainframe Programmer Analyst [CONS] Routine Reason for SW Consult: d/c planning, from [facility] 08/12/17 10:53 Consult to Electrophysiology (EP) [CONS] Routine Consulting Provider: Electrophysiology Olivia Reason for Consult: symptomatic bradycardia Call Completed: Yes 08/16/17 13:32 Consult to Electrophysiology (EP) [CONS] Routine Consulting Provider: Electrophysiology Olivia Reason for Consult: tachycardia per Dr. Wills Call Completed: Yes Discharging clinician: Eleazar Benito Anticipated date of discharge: 08/17/17 - Constitutional Vitals: Temp Pulse Resp BP Pulse Ox 97.7 F 91 16 94/73 97 08/17/17 07:03 08/17/17 07:48 08/17/17 07:35 08/17/17 07:03 08/17/17 07:35 General appearance: Present: A&O X 3, pleasant, answers questions appropriately - Patient Status Disposition: Transfer SNF Condition: Fair Functional capacity at discharge: independent ambulation Overall status at discharge: patient is progressing back to baseline - Discharge Instructions Follow Up With: one week,wound check [Other] (The office will call patient with appointment) three week,device check [Other] (Office will call patient with appointment) Tamiko Keys CNP [Primary Care Provider] - (This patient is from [facility] no PCP appointment needed) Samm Driver MD [Partnered Physician] - (Office will call patient with appointment) - Diet and Activity Activity: as per physical therapy Diet: low fat, low cholesterol, low salt diet <Rodriguez Bonner - Last Filed: 08/17/17 16:14> Date of Encounter: 08/17/17 Hospital course: Ms. Evans is a 87 year old female - Time Spent with Patient Total time spent providing and/or coordinating discharge services: Date of admission: 08/11/17 16:02 Primary care physician: Tamiko Keys CNP Consults: 08/11/17 17:45 Consult to Senior Mainframe Programmer Analyst [CONS] Routine Reason for SW Consult: d/c planning, from [facility] 08/12/17 10:53 Consult to Electrophysiology (EP) [CONS] Routine Consulting Provider: Electrophysiology Lee Reason for Consult: symptomatic bradycardia Call Completed: Yes 08/16/17 13:32 Consult to Electrophysiology (EP) [CONS] Routine Consulting Provider: Electrophysiology Olivia Reason for Consult: tachycardia per Dr. Wills Call Completed: Yes - Constitutional Vitals: Temp Pulse Resp BP Pulse Ox 97.8 F 100 16 122/69 100 08/17/17 11:07 08/17/17 11:07 08/17/17 16:06 08/17/17 11:07 08/17/17 16:06 - Attending Attestation I performed a [id number] diagnostic evaluation of this patient and my medical decision-making was reviewed with the Resident Physician, Dr Eleazar Benito. I agree with the documented findings, disposition and treatment plan as described except to the extent set forth below. Patient was admitted for bradycardia. Per record review she was on extended release Cardizem 240 mg and Toprol XL 25 mg twice a day. She was evaluated by cardiology. She had a temporary pacemaker placed. This was discontinued. All AV anuj blocking agents were stopped initially. Cardizem was restarted. She will be discharged on extended release diltiazem 120 mg daily and amiodarone. She has tolerated this regimen well. Currently she is asymptomatic. Heart is regular, tachycardic, rate 90-110. Lungs are clear. Rodriguez Bonner MD
--- NOTE | 2017-08-17 09:27 | Physician Discharge Referral ---
ExtendedCare Referral Info Provider in Charge: Dr. Bonner Provider in Charge after Transfer: PCP Institutional Level of Care: Skilled - Diagnosis (1) Symptomatic bradycardia Priority: Primary Status: Resolved (2) PAF (paroxysmal atrial fibrillation) Priority: Secondary Status: Chronic (3) UTI (urinary tract infection) Priority: Secondary Status: Acute (4) CHF exacerbation Priority: Secondary Status: Resolved (5) CAD (coronary artery disease) Priority: Secondary Status: Chronic (6) COPD (chronic obstructive pulmonary disease) Priority: Secondary Status: Chronic (7) Hypertension Priority: Secondary Status: Chronic (8) Hyperlipidemia Priority: Secondary Status: Chronic (9) Anemia Priority: Secondary Status: Chronic (10) Night sweats Priority: Secondary Status: Acute (11) Restless legs syndrome Priority: Secondary Status: Chronic Prognosis: Fair Aware of Diagnosis: Patient, Family Aware of Prognosis: Patient, Family - Transfer Medications Prescriptions: Cefdinir [Omnicef] 300 mg PO BID #8 capsule Home Medications: Pantoprazole Sodium [Protonix] 40 mg PO QAM 06/10/15 [History] Isosorbide MONOnitrate (24 HR) [Imdur] 60 mg PO QAM 05/19/17 [History] Pramipexole Di-HCl [Pramipexole Dihydrochloride] 0.5 mg PO BID 05/19/17 [History ] Oxygen 3 l NS AD 06/06/17 [History] Potassium Chloride 20 meq PO QAM 06/06/17 [History] Acetaminophen [Tylenol] 500 mg PO TID 08/11/17 [History] Docusate [Colace] 100 mg PO BID 08/11/17 [History] Fluticasone/Vilanterol [Breo Ellipta 200-25 Mcg INH] 1 puff IH DAILY 08/11/17 [ History] Furosemide [Lasix] 40 mg PO DAILY 08/11/17 [History] Ipratropium/Albuterol Neb [Duoneb] 3 ml IH BID 08/11/17 [History] Ipratropium/Albuterol Neb [Duoneb] 3 ml IH Q4H PRN 08/11/17 [History] Lactose-Reduced Food [Ensure Liquid] 1 bottle PO TIDWM 08/11/17 [History] Simvastatin [Zocor] 10 mg PO HS 08/11/17 [History] Amiodarone [Cordarone] 200 mg PO DAILY tablet 08/17/17 [Rx] Aspirin 81 mg PO DAILY tab.chew 08/17/17 [Rx] Cefdinir [Omnicef] 300 mg PO BID #8 capsule 08/17/17 [Rx] Citalopram [CeleXA] 10 mg PO HS tablet 08/17/17 [Rx] Diltiazem CD (24hr) [Cardizem CD] 120 mg PO DAILY cap.er.24h 08/17/17 [Rx] Melatonin 3 mg PO HS tablet 08/17/17 [Rx] Allergies/Adverse Reactions: 3 Allergy/AdvReac Type Severity Reaction Status Date / Time Sulfa (Sulfonamide AdvReac Nausea Verified 08/11/17 15:19 Antibiotics) - Respiratory Orders Oxygen / L per min (3L) Smoking Cessation: Smoking cessation has been advised. For more information, call the [employer] Quit Line at 9-420-SEEZ-NOW. - Advance Directives Code Status: DNR-Arrest/Don't Intubate - Mobility Orders Chair - Rehabiliation Orders Rehab Potential: Fair Rehab Orders: ROM Exercises, Evaluation for Physical Therapy, Evaluation for Occupational Therapy - Diet Orders Cardiac (fluid restrict to 2L) CERTIFICATION: I certify that the transfer of the above named patient to an Extended Care Facility is necessary for the continuing treatment of the diagnosis listed. The above information is true and accurate reflection of patient's current condition. Confidential - Redisclosure prohibited without a patient's written consent.
[2017-08-17] MEDS: Ondansetron 4 MG/2 ML VIAL IVP PRN (09:45)
[2017-08-17 16:10] VITALS: BP 123/57
--- NOTE | 2017-08-18 06:31 | Electrocardiograph Report ---
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
== END 2017-08-17 17:06 | DRG 308 ==
LOC: EMEROO 14:26 → 2NNU 14:26 → SUATTDRO 16:02
PROVIDERS: ADMIT Emergency Medicine; ATTEND Internal Medicine

== ENCOUNTER 2017-10-01 07:48 | Inpatient (IN) ==
--- NOTE | 2017-10-01 08:00 | Emergency Department Note ---
Disposition Clinical Impression: Respiratory distress, Hypercapnia Respiratory failure with hypoxia Qualifiers: Chronicity: acute Qualified Code(s): J96.01 - Acute respiratory failure with hypoxia CHF exacerbation Qualifiers: Heart failure type: unspecified Qualified Code(s): I50.9 - Heart failure, unspecified UTI (urinary tract infection) Qualifiers: Urinary tract infection type: site unspecified Hematuria presence: without hematuria Qualified Code(s): N39.0 - Urinary tract infection, site not specified Disposition: Admitted As Inpatient Condition: Fair Referrals: Tamiko Keys CODING AND REIMBURSEMENT SPECIALIST [Primary Care Provider] - Forms: ED Satisfaction Letter Time of Disposition: 09:31 SOB HPI - General Chief Complaint: ED Shortness of Breath/Dyspnea Stated Complaint: Respiratory Distress Time Seen by Provider: 10/01/17 07:54 Source: EMS Mode of arrival: EMS Limitations: altered mental status Nursing Notes Reviewed: Yes Vital Signs Reviewed: Yes - History of Present Illness Patient is an 87-year-old female with past medical history of COPD, CHF, hypertension, hyperlipidemia, a fib. She presents today from [facility] due to respiratory distress. According to EMS, the [facility] states that yesterday, the patient was having some shortness of breath and has been placed on nasal cannula. This morning, she had increased shortness of breath, had crackles on lung exam, chest x-ray obtained at outside facility showed urinary edema. She was satting 60% when EMS arrived. Patient was placed on nonrebreather and was satting in the 90s on arrival. However, she was guppy breathing, not responding to any questions or localizing painful stimuli. Otherwise, the rest of the vitals were stable. - Related Data Home Medications Medication Instructions Recorded Confirmed Pantoprazole Sodium [Protonix] 40 mg PO QAM 06/10/15 08/11/17 Isosorbide MONOnitrate (24 HR) 60 mg PO QAM 05/19/17 08/11/17 [Imdur] Pramipexole Di-HCl [Pramipexole 0.5 mg PO BID 05/19/17 08/11/17 Dihydrochloride] Oxygen 3 l NS AD 06/06/17 08/11/17 Potassium Chloride 20 meq PO QAM 06/06/17 08/11/17 Acetaminophen [Tylenol] 500 mg PO TID 08/11/17 08/11/17 Docusate [Colace] 100 mg PO BID 08/11/17 08/11/17 Fluticasone/Vilanterol [Breo 1 puff IH DAILY 08/11/17 08/11/17 Ellipta 200-25 Mcg INH] Furosemide [Lasix] 40 mg PO DAILY 08/11/17 08/11/17 Ipratropium/Albuterol Neb [Duoneb] 3 ml IH BID 08/11/17 08/11/17 Ipratropium/Albuterol Neb [Duoneb] 3 ml IH Q4H PRN 08/11/17 08/11/17 Lactose-Reduced Food [Ensure 1 bottle PO TIDWM 08/11/17 08/11/17 Liquid] Simvastatin [Zocor] 10 mg PO HS 08/11/17 08/11/17 Previous Rx's Medication Instructions Recorded Amiodarone [Cordarone] 200 mg PO DAILY tablet 08/17/17 Aspirin 81 mg PO DAILY tab.chew 08/17/17 Cefdinir [Omnicef] 300 mg PO BID #8 capsule 08/17/17 Citalopram [CeleXA] 10 mg PO HS tablet 08/17/17 Diltiazem CD (24hr) [Cardizem CD] 120 mg PO DAILY cap.er.24h 08/17/17 Melatonin 3 mg PO HS tablet 08/17/17 Allergies Allergy/AdvReac Type Severity Reaction Status Date / Time Sulfa (Sulfonamide AdvReac Nausea Verified 08/11/17 15:19 Antibiotics) Limitations: ROS unobtainable due to patients medical condition Past Medical History - Past Medical History Attestation: Yes The following information was validated with the patient. Source: patient Medical history: Reports: GERD, atrial fibrillation, hyperlipidemia, arthritis, hypertension, osteoporosis, CVA, coronary artery disease, CHF, COPD Surgical history: Reports: carotid endarterectomy, coronary bypass (CABG), orthopedic, other, angioplasty/stent, other, hysterectomy, appendectomy, LE stent (s), LE vascular intervention Psychiatric history: Reports: anxiety, depression - Social History Smoking Status: Former smoker Smokeless Tobacco Status: No Alcohol use: Reports: none Drug use: Reports: none Physical Exam Patient was guppy breathing, not responding to any questions or painful stimuli. Otherwise, the rest of the vitals were stable. She is not able to answer any questions. Withdrawing from painful stimuli but no decorticate or decerebrate posturing. No obvious signs of any injury to head, abdomen, or extremities. - General Limitations: altered mental status General appearance: lethargic, in distress - Head Head exam: atraumatic, normocephalic, normal inspection - Eye Eye exam: Present: normal appearance, PERRL - ENT ENT exam: normal exam, normal oropharynx, mucous membranes moist - Neck Neck exam: Present: normal inspection, full ROM, trachea midline - Chest Chest inspection: Present: normal inspection, symmetric chest wall rise - Respiratory Respiratory exam: Present: other (Significantly decreased throughout, crackles in bilateral lower lobes) - Cardiovascular Cardiovascular exam: Present: regular rate, normal rhythm, normal heart sounds - Abdominal Exam Abdominal exam: Present: soft, Non-Tender. Absent: tenderness, distention, guarding, rebound, rigidity - Extremities Exam Extremities exam: Present: normal inspection, full ROM. Absent: tenderness, pedal edema - Neurological Exam Neurological exam: Present: other (lethargic) - Expanded Neurological Exam Coma Scale Eye Opening: None Coma Scale Motor Response: Withdraws to Pain Coma Scale Verbal Response: None Coma Scale Total: 6 - Psychiatric Psychiatric exam: Present: other - Skin Skin exam: Present: warm, dry, intact, normal color Course Course Narrative: Due to guppy breathing, respiratory distress secondary to CHF exacerbation, patient was intubated. Otherwise, the rest of the vitals remained stable. Will start the patient on propofol drip, obtain basic labs, EKG, CT head due to AMS (likely secondary to hypoxia and/or hypercapnea, but no additional history able to obtained about any falls). After workup, patient will be admitted to ICU for further care. 08:19 EKG shows A. fib with no acute ST changes. Family is now present and confirmed the patient is DNR CC-A but would still want to be intubated. We will proceed with above plan. Post procedure CXR shows interstitial edema and pleural effusion, no pneumonia. Will give lasix after kidney function tests return. UA positive for UTI, we will give the patient 2 g of Rocephin. 08:41 ABG shows mild acidosis and hypercapnea, rate increased. Down to 30% FiO2 at this time. May be mixed component of CHF and COPD exacerbation. 09:[address] was negative for any acute intracranial process. Then is within normal limits, patient will be given 40 of Lasix. Patient has chronic anemia and near baseline. She also has leukocytosis likely secondary to UTI. We talked with catalogue clerk, patient was accepted for admission by Dr. Rey who requests lactic acid and BNP, both are pending. Chest X-Ray 10/01/17 07:54 IMPRESSION: Interstitial edema within both lungs which appears to be improved. Stable small right pleural effusion. Mild cardiomegaly. Satisfactory endotracheal tube placement located 3.4 cm above the fermín. D/ / 10/01/2017 08:16:47 Vazquez Salinas MD / emery Interpreting Provider: Vazquez Salinas MD Vital Signs Temperature 98.7 F 10/01/17 07:50 Pulse Rate 109 10/01/17 07:50 Respiratory Rate 9 10/01/17 07:50 Blood Pressure 151/79 10/01/17 07:50 O2 Sat by Pulse Oximetry 92 10/01/17 07:50 Temperature 98.7 F 10/01/17 07:50 Pulse Rate 124 10/01/17 08:15 Respiratory Rate 12 10/01/17 08:21 Blood Pressure 169/77 10/01/17 08:15 O2 Sat by Pulse Oximetry 100 10/01/17 08:36 Oxygen Delivery Oxygen Delivery Ventilator Procedures - Intubation Time out performed: Yes sedative: Etomidate Mg Given: 20 paralytic: Rocuronium Mg Given: 70 Laryngoscope: Harry ET Tube Size: 7.5 ET Tube Uncuffed: Yes Tube Secured Depth (cm): 22 (lip) Tube Secured Location: lips Tube Placement Confirmation: visualized tube passing through cords, equal breath sounds bilaterally, no breath sounds over epigastrium, confirmation by capnometry Patient Tolerated Procedure: well Intubation Complications: none Additional Comments: Postprocedure chest x-ray shows proper endotracheal tube placement. Chest X-Ray 10/01/17 07:54 IMPRESSION: Interstitial edema within both lungs which appears to be improved. Stable small right pleural effusion. Mild cardiomegaly. Satisfactory endotracheal tube placement located 3.4 cm above the fermín. D/ / 10/01/2017 08:16:47 Vazquez Salinas MD / emery Interpreting Provider: Vazquez Salinas MD Shortness of Breath/Dyspnea - [facility] Narrative Medical decision making narrative: Due to guppy breathing, respiratory distress secondary to CHF exacerbation, patient was intubated. Otherwise, the rest of the vitals remained stable. Will start the patient on propofol drip, obtain basic labs, EKG, CT head due to AMS (likely secondary to hypoxia and/or hypercapnea, but no additional history able to obtained about any falls). After workup, patient will be admitted to ICU for further care. 08:19 EKG shows A. fib with no acute ST changes. Family is now present and confirmed the patient is DNR CC-A but would still want to be intubated. We will proceed with above plan. Post procedure CXR shows interstitial edema and pleural effusion, no pneumonia. Will give lasix after kidney function tests return. UA positive for UTI, we will give the patient 2 g of Rocephin. 08:41 ABG shows mild acidosis and hypercapnea, rate increased. Down to 30% FiO2 at this time. May be mixed component of CHF and COPD exacerbation. 09:[address] was negative for any acute intracranial process. Then is within normal limits, patient will be given 40 of Lasix. Patient has chronic anemia and near baseline. She also has leukocytosis likely secondary to UTI. We talked with catalogue clerk, patient was accepted for admission by Dr. Rey who requests lactic acid and BNP, both are pending. - Medical Records Medical records reviewed: Yes I reviewed the patient's medical records. - Lab Data Lab results reviewed: Yes I reviewed the patient's lab results. Result diagrams: 10/01/17 07:57 10/01/17 07:57 Lab Results 10/01/17 10/01/17 10/01/17 Range/Units 07:57 07:57 07:57 WBC 17.7 H (4.3-11.1) K/mcL RBC 3.51 L (3.82-4.97) M/mcL Hgb 9.6 L (11.5-15.4) g/dL Hct 32.7 L (35.3-44.9) % MCV 93.2 (83.0-100.0) fL MCH 27.4 L (28.0-33.3) pg MCHC 29.4 L (31.6-35.5) g/dL RDW 15.3 H (11.5-14.5) % Plt Count 329 (140-400) K/mcL MPV 10.4 (9.4-12.4) fL Immature Gran % 0.5 (0-4) % Seg Neutrophils % 55.5 % Lymphocytes % 35.8 % Monocytes % 6.8 % Eosinophils % 1.0 % Basophils % 0.4 % Neutrophils # 9.8 H (1.6-8.9) K/mcL Lymphocytes # 6.4 H (0.6-4.6) K/mcL Monocytes # 1.2 (0.0-1.3) K/mcL Eosinophils # 0.2 (0.0-0.6) K/mcL Basophils # 0.1 (0.0-0.2) K/mcL Nucleated RBCs/100 WBC 0.2 H (0) /100 WBC PT 13.0 H (9.4-12.1) Seconds INR 1.2 APTT 30.2 (26.0-36.0) Seconds Sample Site ABG pH (7.32-7.45) pH Units ABG pCO2 (35-45) mmHg ABG pO2 (85-104) mmHg ABG HCO3 (21-27) mEq/L ABG Total CO2 (20-26) mEq/L ABG O2 Saturation (95-98) % ABG Base Excess (-2 to 3) mEq/L O2 Delivery Device Sodium 137 (136-145) mEq/L Potassium 4.6 (3.5-5.1) mEq/L Chloride 103 (98-107) mEq/L Carbon Dioxide 22 L (23-29) mEq/L BUN 9 (8-23) mg/dL Creatinine 0.82 (0.60-1.20) mg/dL Est GFR ( Amer) > 60 (> 60) Est GFR (Non-Af Amer) > 60 (> 60) BUN/Creatinine Ratio 11 (6-26) Glucose 241 H (70-105) mg/dL Calculated Osmolality 291 (280-300) Calcium 9.1 (8.6-10.3) mg/dL Troponin I < 0.03 (< 0.04) ng/mL Urine Color (Yellow) Urine Clarity (Clear) Urine pH (5.0-8.0) pH Units Ur Specific [place] (1.010-1.025) Urine Protein (Neg-Trace) mg/dL Urine Glucose (UA) (Normal) mg/dL Urine Ketones (Negative) mg/dL Urine Blood (Negative) Urine Nitrite (Negative) Urine Bilirubin (Negative) Urine Urobilinogen (Normal) mg/dL Ur Leukocyte Esterase (Negative) Urine Microscopic RBC (0-3) per hpf Urine Microscopic WBC (0-3) per hpf Ur Squamous Epith Cells (None-Few) per lpf Urine Bacteria (None-Few) per hpf Hyaline Casts (None-Few) per lpf Ur Culture Indicated? (NO) 10/01/17 10/01/17 Range/Units 08:15 08:35 WBC (4.3-11.1) K/mcL RBC (3.82-4.97) M/mcL Hgb (11.5-15.4) g/dL Hct (35.3-44.9) % MCV (83.0-100.0) fL MCH (28.0-33.3) pg MCHC (31.6-35.5) g/dL RDW (11.5-14.5) % Plt Count (140-400) K/mcL MPV (9.4-12.4) fL Immature Gran % (0-4) % Seg Neutrophils % % Lymphocytes % % Monocytes % % Eosinophils % % Basophils % % Neutrophils # (1.6-8.9) K/mcL Lymphocytes # (0.6-4.6) K/mcL Monocytes # (0.0-1.3) K/mcL Eosinophils # (0.0-0.6) K/mcL Basophils # (0.0-0.2) K/mcL Nucleated RBCs/100 WBC (0) /100 WBC PT (9.4-12.1) Seconds INR APTT (26.0-36.0) Seconds Sample Site R Radial ABG pH 7.23 L (7.32-7.45) pH Units ABG pCO2 64 H (35-45) mmHg ABG pO2 151 H (85-104) mmHg ABG HCO3 27 (21-27) mEq/L ABG Total CO2 29 H (20-26) mEq/L ABG O2 Saturation 99 H (95-98) % ABG Base Excess -2 (-2 to 3) mEq/L O2 Delivery Device Adult Vent Sodium (136-145) mEq/L Potassium (3.5-5.1) mEq/L Chloride (98-107) mEq/L Carbon Dioxide (23-29) mEq/L BUN (8-23) mg/dL Creatinine (0.60-1.20) mg/dL Est GFR ( Amer) (> 60) Est GFR (Non-Af Amer) (> 60) BUN/Creatinine Ratio (6-26) Glucose (70-105) mg/dL Calculated Osmolality (280-300) Calcium (8.6-10.3) mg/dL Troponin I (< 0.04) ng/mL Urine Color Yellow (Yellow) Urine Clarity Cloudy A (Clear) Urine pH 6.5 (5.0-8.0) pH Units Ur Specific [place] 1.011 (1.010-1.025) Urine Protein 100 H (Neg-Trace) mg/dL Urine Glucose (UA) Normal (Normal) mg/dL Urine Ketones Negative (Negative) mg/dL Urine Blood Moderate H (Negative) Urine Nitrite Positive A (Negative) Urine Bilirubin Negative (Negative) Urine Urobilinogen Normal (Normal) mg/dL Ur Leukocyte Esterase Large H (Negative) Urine Microscopic RBC 3-5 H (0-3) per hpf Urine Microscopic WBC TNTC H (0-3) per hpf Ur Squamous Epith Cells Many H (None-Few) per lpf Urine Bacteria Many H (None-Few) per hpf Hyaline Casts None Seen (None-Few) per lpf Ur Culture Indicated? NO. A (NO) - Radiology Data Radiology results reviewed: Yes I reviewed the patient's radiology results. Chest X-Ray 10/01/17 07:54 IMPRESSION: Interstitial edema within both lungs which appears to be improved. Stable small right pleural effusion. Mild cardiomegaly. Satisfactory endotracheal tube placement located 3.4 cm above the fermín. D/ / 10/01/2017 08:16:47 Vazquez Salinas MD / emery Interpreting Provider: Vazquez Salinas MD - EKG Data EKG attestation: Yes I reviewed and interpreted this EKG. EKG results narrative: 10/01/2017 07:52. A. fib. Rate 112. QRS 125. QTC 426. Normal axis. Mild elevation of ST segment in lead 3 that is chronic for the patient. Otherwise, no other acute ST changes from EKG on 08/16/2017. S.B.ALexi - [place].Jade Situation: Demographics, MOA Background: Presenting Complaint, Relevant PMH, Meds, & Allergies Assessment: Vital Signs, Course and respsone to treatment, Exam Concerns, Patient/Family Expectation, Pertinant Lab Results, Outstanding Labs Recommendation: Barrier(s) to disposition, Recommendation based on pending studies, treatments, or consults S.B.A.Stefan Report Given to: Dr. Candido Dominguez Repor Time: 09:31
[2017-10-01] MEDS ORDERED: Lacri-Lube 3.5 GM TUBE BOTH EYES PRN (08:01)
--- NOTE | 2017-10-01 08:14 | Emergency Department Note ---
Disposition Clinical Impression: Respiratory distress Disposition: Admitted As Inpatient Referrals: Tamiko Keys BAG WASHER [Primary Care Provider] - Forms: ED Satisfaction Letter General Adult HPI - General Chief complaint: ED Shortness of Breath/Dyspnea Stated complaint: Respiratory Distress Time Seen by Provider: 10/01/17 07:54 Source: EMS Mode of arrival: EMS Limitations: altered mental status - History of Present Illness Pain Scale: 0 - Related Data Home Medications Medication Instructions Recorded Confirmed Pantoprazole Sodium [Protonix] 40 mg PO QAM 06/10/15 08/11/17 Isosorbide MONOnitrate (24 HR) 60 mg PO QAM 05/19/17 08/11/17 [Imdur] Pramipexole Di-HCl [Pramipexole 0.5 mg PO BID 05/19/17 08/11/17 Dihydrochloride] Oxygen 3 l NS AD 06/06/17 08/11/17 Potassium Chloride 20 meq PO QAM 06/06/17 08/11/17 Acetaminophen [Tylenol] 500 mg PO TID 08/11/17 08/11/17 Docusate [Colace] 100 mg PO BID 08/11/17 08/11/17 Fluticasone/Vilanterol [Breo 1 puff IH DAILY 08/11/17 08/11/17 Ellipta 200-25 Mcg INH] Furosemide [Lasix] 40 mg PO DAILY 08/11/17 08/11/17 Ipratropium/Albuterol Neb [Duoneb] 3 ml IH BID 08/11/17 08/11/17 Ipratropium/Albuterol Neb [Duoneb] 3 ml IH Q4H PRN 08/11/17 08/11/17 Lactose-Reduced Food [Ensure 1 bottle PO TIDWM 08/11/17 08/11/17 Liquid] Simvastatin [Zocor] 10 mg PO HS 08/11/17 08/11/17 Previous Rx's Medication Instructions Recorded Amiodarone [Cordarone] 200 mg PO DAILY tablet 08/17/17 Aspirin 81 mg PO DAILY tab.chew 08/17/17 Cefdinir [Omnicef] 300 mg PO BID #8 capsule 08/17/17 Citalopram [CeleXA] 10 mg PO HS tablet 08/17/17 Diltiazem CD (24hr) [Cardizem CD] 120 mg PO DAILY cap.er.24h 08/17/17 Melatonin 3 mg PO HS tablet 08/17/17 Allergies Allergy/AdvReac Type Severity Reaction Status Date / Time Sulfa (Sulfonamide AdvReac Nausea Verified 08/11/17 15:19 Antibiotics) Past Medical History - Past Medical History Medical history: Reports: GERD, atrial fibrillation, hyperlipidemia, arthritis, hypertension, osteoporosis, CVA, coronary artery disease, CHF, COPD Surgical history: Reports: carotid endarterectomy, coronary bypass (CABG), orthopedic, other, angioplasty/stent, other, hysterectomy, appendectomy, LE stent (s), LE vascular intervention Psychiatric history: Reports: anxiety, depression - Social History Smoking Status: Former smoker Smokeless Tobacco Status: No Alcohol use: Reports: none Drug use: Reports: none Physical Exam - General Limitations: altered mental status General appearance: lethargic, in distress Course Vital Signs Temperature 98.7 F 10/01/17 07:50 Pulse Rate 109 10/01/17 07:50 Respiratory Rate 9 10/01/17 07:50 Blood Pressure 151/79 10/01/17 07:50 O2 Sat by Pulse Oximetry 92 10/01/17 07:50 Temperature 98.7 F 10/01/17 07:50 Pulse Rate 109 10/01/17 07:50 Respiratory Rate 9 10/01/17 07:50 Blood Pressure 151/79 10/01/17 07:50 O2 Sat by Pulse Oximetry 92 10/01/17 07:50 Oxygen Delivery Oxygen Delivery Ambu Bag Attestation Statement - Attestation Attestation: I examined this patient and my medical decision-making was reviewed with the Resident Physician. I agree with the documented findings, disposition and treatment plan as described except to the extent set forth below. 87 year old female presnte to the eD via EMS in respiratory distress fro alf. She was 68% on 2LNC at that time and decompensated in about 10 minutes per alf after complaning about difficuty in breathing. Upon arrival she was sedated and intubated due to a GCS < 8. Wew ill do an altered mental status and sepsis workup and then admit to ICU.
[2017-10-01] MEDS ORDERED: Propofol 500 MG/50 ML INFUS..BTL IVC SCH (08:15)
[2017-10-01 08:28] LABS: Bilirubin,Urine Negative (Negative); Blood,Urine Moderate (Negative); Color,Urine Yellow (Yellow); Glucose,Urine (UA) Normal (Normal); Ketones,Urine Negative (Negative); Leukocyte Esterase,Urine Large (Negative); Nitrite,Urine Positive (Negative); PH,Urine 6.5 pH Units (5.0-8.0); Protein,Urine 100 mg/dL (Neg-Trace); Specific Gravity,Urine 1.011 (1.010-1.025); Urobilinogen,Urine Normal (Normal)
[2017-10-01 08:31] LABS: Bacteria,Urine Many per hpf (None-Few); Hyaline Casts,Urine None Seen per lpf (None-Few); Squamous Epithelial Cell,Urine Many per lpf (None-Few); WBC,Urine TNTC per hpf (0-3)
[2017-10-01 08:32] LABS: Clarity,Urine Cloudy (Clear)
[2017-10-01 08:33] LABS: INR 1.2
[2017-10-01 08:35] LABS: BUN/Creatinine Ratio 11 (6-26); Blood Urea Nitrogen 9 mg/dL (8-23); Calcium 9.1 mg/dL (8.6-10.3); Carbon Dioxide 22 mEq/L (23-29); Chloride 103 mEq/L (98-107); Glucose 241 mg/dL (70-105); Osmolality,Calculated 291 (280-300); Potassium 4.6 mEq/L (3.5-5.1); Sodium 137 mEq/L (136-145); Troponin I < 0.03 ng/mL (< 0.04); eGFR For African Americans > 60 (> 60); eGFR For Non-African Americans > 60 (> 60)
[2017-10-01] MEDS ORDERED: cefTRIAXone 2,000 MG in 0.9 % Sodium Chloride Mini Bag 100 ML IVPB ONE (08:35)
[2017-10-01 08:36] LABS: Activated Partial Thrombo Time 30.2 Seconds (26.0-36.0)
[2017-10-01 08:38] LABS: ABG Base Excess -2 mEq/L (-2 to 3); ABG HCO3 27 mEq/L (21-27); ABG Oxygen Saturation 99 % (95-98); ABG PCO2 64 mmHg (35-45); ABG PH 7.23 pH Units (7.32-7.45); ABG PO2 151 mmHg (85-104); ABG TCO2 29 mEq/L (20-26)
[2017-10-01 08:40] LABS: Basophils # 0.1 K/mcL (0.0-0.2); Basophils % 0.4 %; Eosinophils # 0.2 K/mcL (0.0-0.6); Hematocrit 32.7 % (35.3-44.9); Hemoglobin 9.6 g/dL (11.5-15.4); Immature Granulocytes % 0.5 % (0-4); Lymphocytes # 6.4 K/mcL (0.6-4.6); Lymphocytes % 35.8 %; Mean Corpuscular HGB Conc 29.4 g/dL (31.6-35.5); Mean Corpuscular Hemoglobin 27.4 pg (28.0-33.3); Mean Corpuscular Volume 93.2 fL (83.0-100.0); Mean Platelet Volume 10.4 fL (9.4-12.4); Monocytes # 1.2 K/mcL (0.0-1.3); Monocytes % 6.8 %; Neutrophils # 9.8 K/mcL (1.6-8.9); Nucleated Red Blood Cells 0.2 /100 WBC (0); Platelet Count 329 K/mcL (140-400); Red Blood Count 3.51 M/mcL (3.82-4.97); Red Cell Distribution Width 15.3 % (11.5-14.5); Segmented Neutrophils % 55.5 %
[2017-10-01] MEDS ORDERED: Chlorhexidine Rinse 15 ML MOUTHWASH MM SCH (09:00)
[2017-10-01] MEDS ORDERED: Furosemide 40 MG/4 ML VIAL IVP ONE (09:22)
[2017-10-01] MEDS ORDERED: Naloxone 0.4 MG/ML INJ IVP PRN (10:56)
[2017-10-01] MEDS ORDERED: *HR* Dextrose 50 % in Water (Syg) 50 ML SYRINGE IVP PRN (11:00)
[2017-10-01] MEDS ORDERED: Dextrose Gel 15 GM/37.5 ML TUBE PO PRN ×2 (11:00)
[2017-10-01] MEDS ORDERED: D5% in Water 1,000 ML IVC PRN (11:00)
--- NOTE | 2017-10-01 11:31 | Pulmonology History & Physical ---
<Adis Rey M - Last Filed: 10/01/17 13:06> Date of Encounter: 10/01/17 History of Present Illness HPI: Ms. Evans is a 87 year old female Medications and Allergies Pantoprazole Sodium [Protonix] 40 mg PO QAM 06/10/15 [History] Isosorbide MONOnitrate (24 HR) [Imdur] 60 mg PO QAM 05/19/17 [History] Pramipexole Di-HCl [Pramipexole Dihydrochloride] 0.5 mg PO BID 05/19/17 [History ] Oxygen 3 l NS AD 06/06/17 [History] Potassium Chloride 20 meq PO QAM 06/06/17 [History] Acetaminophen [Tylenol] 500 mg PO TID 08/11/17 [History] Docusate [Colace] 100 mg PO BID 08/11/17 [History] Fluticasone/Vilanterol [Breo Ellipta 200-25 Mcg INH] 1 puff IH DAILY 08/11/17 [ History] Furosemide [Lasix] 40 mg PO BID 08/11/17 [History] Ipratropium/Albuterol Neb [Duoneb] 3 ml IH BID 08/11/17 [History] Lactose-Reduced Food [Ensure Liquid] 1 bottle PO TIDWM 08/11/17 [History] Simvastatin [Zocor] 10 mg PO HS 08/11/17 [History] Amiodarone [Cordarone] 200 mg PO DAILY tablet 08/17/17 [Rx] Aspirin 81 mg PO DAILY tab.chew 08/17/17 [Rx] Diltiazem CD (24hr) [Cardizem CD] 120 mg PO DAILY cap.er.24h 08/17/17 [Rx] Nitroglycerin [Nitrostat] 0.4 mg SL Q5M PRN 10/01/17 [History] Oxycodone HCl/Acetaminophen [Percocet 5-325 mg Tablet] 1 tab PO Q6H PRN [History] Spironolactone [Aldactone] 25 mg PO DAILY 10/01/17 [History] 3 Allergy/AdvReac Type Severity Reaction Status Date / Time Sulfa (Sulfonamide AdvReac Nausea Verified 08/11/17 15:19 Antibiotics) All Systems: The remainder of the systems were reviewed and are negative Physical Examination Vital Signs: Vital Signs, Last 4 Hours Temp Pulse Resp BP Pulse Ox 10/01/17 11:00 98.6 F 108 15 153/85 98 10/01/17 10:41 112 10/01/17 10:34 12 100 10/01/17 10:07 12 142/71 Results - Laboratory Findings CBC and BMP: 10/01/17 07:57 10/01/17 07:57 ABG ABG pH 7.23 pH Units (7.32-7.45) L 10/01/17 08:35 ABG pCO2 64 mmHg (35-45) H 10/01/17 08:35 ABG pO2 151 mmHg (85-104) H 10/01/17 08:35 ABG O2 Saturation 99 % (95-98) H 10/01/17 08:35 PT/INR, D-dimer PT 13.0 Seconds (9.4-12.1) H 10/01/17 07:57 Abnormal lab findings: Abnormal lab results WBC 17.7 K/mcL (4.3-11.1) H 10/01/17 07:57 RBC 3.51 M/mcL (3.82-4.97) L 10/01/17 07:57 Hgb 9.6 g/dL (11.5-15.4) L 10/01/17 07:57 Hct 32.7 % (35.3-44.9) L 10/01/17 07:57 MCH 27.4 pg (28.0-33.3) L 10/01/17 07:57 MCHC 29.4 g/dL (31.6-35.5) L 10/01/17 07:57 RDW 15.3 % (11.5-14.5) H 10/01/17 07:57 Neutrophils # 9.8 K/mcL (1.6-8.9) H 10/01/17 07:57 Lymphocytes # 6.4 K/mcL (0.6-4.6) H 10/01/17 07:57 Nucleated RBCs/100 WBC 0.2 /100 WBC (0) H 10/01/17 07:57 PT 13.0 Seconds (9.4-12.1) H 10/01/17 07:57 ABG pH 7.23 pH Units (7.32-7.45) L 10/01/17 08:35 ABG pCO2 64 mmHg (35-45) H 10/01/17 08:35 ABG pO2 151 mmHg (85-104) H 10/01/17 08:35 ABG Total CO2 29 mEq/L (20-26) H 10/01/17 08:35 ABG O2 Saturation 99 % (95-98) H 10/01/17 08:35 Carbon Dioxide 22 mEq/L (23-29) L 10/01/17 07:57 Glucose 241 mg/dL (70-105) H 10/01/17 07:57 B-Natriuretic Peptide 188 pg/mL (Less than 100) H 10/01/17 09:38 Urine Clarity Cloudy (Clear) A 10/01/17 08:15 Urine Protein 100 mg/dL (Neg-Trace) H 10/01/17 08:15 Urine Blood Moderate (Negative) H 10/01/17 08:15 Urine Nitrite Positive (Negative) A 10/01/17 08:15 Ur Leukocyte Esterase Large (Negative) H 10/01/17 08:15 Urine Microscopic RBC 3-5 per hpf (0-3) H 10/01/17 08:15 Urine Microscopic WBC TNTC per hpf (0-3) H 10/01/17 08:15 Ur Squamous Epith Cells Many per lpf (None-Few) H 10/01/17 08:15 Urine Bacteria Many per hpf (None-Few) H 10/01/17 08:15 Ur Culture Indicated? NO. (NO) A 10/01/17 08:15 - Attending Attestation I examined this patient and my medical decision-making was reviewed with the Resident Physician. I agree with the documented findings, disposition and treatment plan as described except to the extent set forth below. Patient seen and examined. Labs, radiology, chart personally reviewed. Agree with resident's history and physical, assessment, plan with following comments: APPLICATION SUPPORT ANALYST: Patient does not follows commands on sedation and sedation was turned off, Pulmonary: Acceptable oxygenation and ventilation and currently patient does not want any aggressive treatment such as intubation and chest compression and CODE STATUS changed to DNR comfort care. Palliative care to see patient and possible transfer to the floor. Cardiovascular: Relatively stable stable GI: Nutrition per dietary and GI prophylaxis per routine Heme: DVT prophylaxis per routine ID: Palliative care discussed with patient and goal of comfort care will decide about antibiotics. Renal; urine out put and renal funtion reviewed Endorcine: blood glucose is monitored Lines: all lines checked and no evidence of infections Skin: skin care to prevent pressure ulcers per nursing routine care Prognosis is poor <MelchorElan spangler - Last Filed: 10/01/17 16:35> Date of Encounter: 10/01/17 Time of Encounter: 10:45 Assessment and Plan (1) Acute and chronic respiratory failure with hypoxia Current visit: Yes Status: Acute - Acute respiratory failure with hypoxia and hypercarbia likely secondary to CHF exacerbation with possible underlying COPD - Patient intubated in emergency room - Discussion with family was present at bedside with niece who is power of litigation attorney, regarding goals of care - It is the patient has expressed that she does not want to remain intubated - Palliative care has been consulted Plan - We will proceed with extubation with supplemental oxygen via option mask - Supportive care at this time - Change CODE STATUS to DNR CC (2) CHF (congestive heart failure) Current visit: Yes Status: Acute As above for acute on chronic respiratory failure Qualifiers: Heart failure type: diastolic Heart failure chronicity: acute on chronic Qualified Code(s): I50.33 - Acute on chronic diastolic (congestive) heart failure (3) Dyspnea Current visit: Yes Status: Acute Qualifiers: Dyspnea type: unspecified Qualified Code(s): R06.00 - Dyspnea, unspecified (4) Goals of care, counseling/discussion Current visit: Yes Status: Acute - Palliative care consult and upon presentation to intensive care unit Changing CODE STATUS as above Will provide supportive care while admitted Transfer to palliative care pending her status (5) Respiratory distress Current visit: Yes Status: Acute As above (6) Anemia Current visit: Yes Status: Chronic Anemia at baseline levels with hemoglobin of 9.6/32.7 Continue supportive care Qualifiers: Anemia type: other cause Other causes of anemia: chronic disease, other Qualified Code(s): D63.8 - Anemia in other chronic diseases classified elsewhere (7) Dyslipidemia Current visit: No Status: Chronic (8) Physical deconditioning Current visit: Yes Status: Chronic History of Present Illness Chief complaint: Shortness of breath HPI: Ms. Evans is a 87 year old female with past medical history of COPD, heart failure with preserved ejection fraction, hypertension, CVA, CAD, CABG presents from long-term to emergency room with the complaint of respiratory distress. According to EMS, patient began experiencing shortness of breath yesterday and was placed on nasal cannula. Chest x-ray was obtained at outside facility and showed pulmonary edema. She was reportedly saturating oxygen 60% when EMS arrived. She was also not responding to questions or localizing painful stimuli on presentation to emergency room. Patient was intubated in the emergency room due to respiratory distress and started on a propofol drip. EKG at the time shows atrial fibrillation with no ST changes, post intubation x-ray shows interstitial edema and pleural effusion. She was given a dose of Lasix and started on Rocephin. ABG shows respiratory acidosis which appears to be acute in nature. Other labs significant for WBC of 17.7, baseline anemia with hemoglobin 9.6, bicarbonate of 22, BNP of 188, and possible urinary tract infection. Head CT was also obtained and shows global atrophy and extensive chronic small vessel ischemic disease without acute abnormality. She was admitted to the intensive care unit for further management of her respiratory distress. Upon arrival to the intensive care unit, daughter, and niece who is power of litigation attorney, were present in the room. Patient was resting comfortably. Family discussion was held and family is in agreement that patient has expressed that she would not like to remain intubated. Palliative care was consulted. CODE STATUS at that time was changed to DNR- CC. Past Med Surg Social Fam HX - Past Medical History Medical history: arthritis, atrial fibrillation, CHF, COPD, coronary artery disease, CVA, GERD, hyperlipidemia, hypertension, osteoporosis, TIA Psychiatric history: anxiety, depression - Past Surgical History Surgical History: carotid endarterectomy, coronary bypass (CABG), orthopedic, other, angioplasty/stent, other, hysterectomy, appendectomy, LE stent (s), LE vascular intervention - Social History Smoking Status: Former smoker Smokeless Tobacco Status: No Alcohol use: none Drug use: none - Family History Mother Living Status: Hx Family Cardiac Disorders: Yes (CAD) Father Living Status: Hx Family Cardiac Disorders: Yes (CAD) Hx Family Neurologic Disorders: Yes (epilepsy) Sister Living Status: Unknown Hx Family Cardiac Disorders: Yes (CAD) Hx Family Cancer: No Hx Family Neurologic Disorders: Yes (CVA) ROS unobtainable: due to endotracheal tube All Systems: The remainder of the systems were reviewed and are negative Physical Examination Vital Signs: Vital Signs, Last 4 Hours Temp Pulse Resp BP Pulse Ox 10/01/17 11:00 98.6 F 108 15 153/85 98 10/01/17 10:41 112 10/01/17 10:34 12 100 10/01/17 10:07 12 142/71 Gen.: Vitals noted. No acute distress. Intubated and comfortable HEENT: PERRL/EOMI, oropharynx clear, Normocephalic, atraumatic, MMM, endotracheal tube in place Cardiac: Irregularly irregular, no murmur, +S1/S2 Pulmonary: Rales present diffusely, equal chest expansion Abdomen: soft, nontender, BS noted, no guarding, no rebound. MSK: ROM intact, no joint swelling noted Extremities: no BLE edema, nontender calf, no cyanosis or clubbing Neuro: Intubated and sedated but does respond to tactile stimuli Psych: Unable to assess Results - Laboratory Findings CBC and BMP: 10/01/17 07:57 10/01/17 07:57 ABG ABG pH 7.23 pH Units (7.32-7.45) L 10/01/17 08:35 ABG pCO2 64 mmHg (35-45) H 10/01/17 08:35 ABG pO2 151 mmHg (85-104) H 10/01/17 08:35 ABG O2 Saturation 99 % (95-98) H 10/01/17 08:35 PT/INR, D-dimer PT 13.0 Seconds (9.4-12.1) H 10/01/17 07:57 Abnormal lab findings: Abnormal lab results WBC 17.7 K/mcL (4.3-11.1) H 10/01/17 07:57 RBC 3.51 M/mcL (3.82-4.97) L 10/01/17 07:57 Hgb 9.6 g/dL (11.5-15.4) L 10/01/17 07:57 Hct 32.7 % (35.3-44.9) L 10/01/17 07:57 MCH 27.4 pg (28.0-33.3) L 10/01/17 07:57 MCHC 29.4 g/dL (31.6-35.5) L 10/01/17 07:57 RDW 15.3 % (11.5-14.5) H 10/01/17 07:57 Neutrophils # 9.8 K/mcL (1.6-8.9) H 10/01/17 07:57 Lymphocytes # 6.4 K/mcL (0.6-4.6) H 10/01/17 07:57 Nucleated RBCs/100 WBC 0.2 /100 WBC (0) H 10/01/17 07:57 PT 13.0 Seconds (9.4-12.1) H 10/01/17 07:57 ABG pH 7.23 pH Units (7.32-7.45) L 10/01/17 08:35 ABG pCO2 64 mmHg (35-45) H 10/01/17 08:35 ABG pO2 151 mmHg (85-104) H 10/01/17 08:35 ABG Total CO2 29 mEq/L (20-26) H 10/01/17 08:35 ABG O2 Saturation 99 % (95-98) H 10/01/17 08:35 Carbon Dioxide 22 mEq/L (23-29) L 10/01/17 07:57 Glucose 241 mg/dL (70-105) H 10/01/17 07:57 B-Natriuretic Peptide 188 pg/mL (Less than 100) H 10/01/17 09:38 Urine Clarity Cloudy (Clear) A 10/01/17 08:15 Urine Protein 100 mg/dL (Neg-Trace) H 10/01/17 08:15 Urine Blood Moderate (Negative) H 10/01/17 08:15 Urine Nitrite Positive (Negative) A 10/01/17 08:15 Ur Leukocyte Esterase Large (Negative) H 10/01/17 08:15 Urine Microscopic RBC 3-5 per hpf (0-3) H 10/01/17 08:15 Urine Microscopic WBC TNTC per hpf (0-3) H 10/01/17 08:15 Ur Squamous Epith Cells Many per lpf (None-Few) H 10/01/17 08:15 Urine Bacteria Many per hpf (None-Few) H 10/01/17 08:15 Ur Culture Indicated? NO. (NO) A 10/01/17 08:15
[2017-10-01] MEDS ORDERED: Insulin LISPRO 300 UNITS/3 ML VIAL SQ SCH (12:00)
[2017-10-01] MEDS ORDERED: Lacri-Lube 3.5 GM TUBE BOTH EYES SCH (12:00)
--- NOTE | 2017-10-01 12:29 | Event Note ---
<Moises Horton - Last Filed: 10/01/17 12:29> Date of Encounter: 10/01/17 Time of Encounter: 12:26 Patient is off sedation. Family is at bedside. Patient's power of trial attorney and nieces at bedside. Family is in agreement with the patient would not want to be intubated. Family as well as the patient when asked nods her head that she would like to removed. Did not family also insists that the patient would not want chest compressions or aggressive measures. Patient's CODE STATUS will be changed to DNR comfort care. Will involve round cutter operator services. <Aids Rey - Last Filed: 10/01/17 13:06> Date of Encounter: 10/01/17 This was discussed with patient and agree with plan.
[2017-10-01] MEDS ORDERED: *HR* LORazepam 2 MG/ML VIAL IVP PRN (12:59)
[2017-10-01] MEDS ORDERED: *HR* FentaNYL (PF) 100 MCG/2 ML VIAL IVP PRN (12:59)
[2017-10-01] MEDS ORDERED: Atropine Sulfate 1% 40 DROP/2 ML BOTTLE SL PRN (13:00)
[2017-10-01] MEDS ORDERED: Scopolamine Patch 1.5 MG PATCH.TD72 TD SCH (13:00)
[2017-10-01] MEDS ORDERED: Ondansetron ODT 4 MG TAB.RAPDIS SL PRN (13:01)
[2017-10-01 13:15] VITALS: BP 151/87
--- NOTE | 2017-10-01 13:15 | Palliative - Consult Note ---
Date of Encounter: 10/01/17 Time of Encounter: 12:45 - Assessment and Plan (1) Respiratory failure with hypoxia Current Visit: Yes Status: Acute Assessment and plan: Patient intubated during assessment d/t respiratory distress/failure. Ordered placed to extubate patient and keep patient comfortable per patient and family wishes. Qualifiers: Chronicity: unspecified Qualified Code(s): J96.91 - Respiratory failure, unspecified with hypoxia (2) Atrial fibrillation with rapid ventricular response Current Visit: No Status: Acute (3) Goals of care, counseling/discussion Current Visit: Yes Status: Acute Assessment and plan: Patient and family have requested to be terminally extubated. Orders placed for extubation, including: Fentanyl IVP and Ativan IVP PRN. Family and patient wish for patient to be kept comfortable. Will transfer to if stable. (4) Excessive oral secretions Current Visit: Yes Status: Acute Assessment and plan: Patient having increased oral secretions. Ordered Scopalamine Patch and Atropine drops. Palliative-CN HPI - Data of Consult Patient: new to practice Consult date: 10/01/17 Requesting Physician: Adis Rey MD Primary Care Provider: Tamiko Keys CNP - Consult Narrative Palliative Care/Comfort Measures: Palliative care Reason for consult: possible terminal extubation History of present illness: Ms. Evans is a 87 year old female arrived to [place] ER for SOB on 10/01/17. Patient admitted for respiratory distress. Patient was found to be 68% oxygen saturation on 2LNC. Patient was intubated and sedated on arrival. Admitted to ICU for altered mental status and sepsis. Palliative care consulted as patient and family agree that they want to have a terminal extubation as patient has been "miserable at [facility] for months." Visited patient and family (patient's , niece, and daughter) at bedside. Spoke with patient as she is able to answer yes and no questions. Patient is intubated and sedation is turned off. Patient is alert; however, is unable to evaluate orientation. Pedro ERWIN and Sean Grijalva at bedside. Patient denies pain or anxiety. Family wishes to have patient extubated and kept comfortable. CC: Adis Rey MD Past Med Surg Social Fam HX - Past Medical History Medical history: arthritis, atrial fibrillation, CHF, COPD, coronary artery disease, CVA, GERD, hyperlipidemia, hypertension, osteoporosis, TIA Psychiatric history: anxiety, depression - Past Surgical History Surgical History: carotid endarterectomy, coronary bypass (CABG), orthopedic, other, angioplasty/stent, other, hysterectomy, appendectomy, LE stent (s), LE vascular intervention - Social History Smoking Status: Former smoker Smokeless Tobacco Status: No Alcohol use: none Drug use: none - Family History Mother Living Status: Hx Family Cardiac Disorders: Yes (CAD) Father Living Status: Hx Family Cardiac Disorders: Yes (CAD) Hx Family Neurologic Disorders: Yes (epilepsy) Sister Living Status: Unknown Hx Family Cardiac Disorders: Yes (CAD) Hx Family Cancer: No Hx Family Neurologic Disorders: Yes (CVA) Medications and Allergies Pantoprazole Sodium [Protonix] 40 mg PO QAM 06/10/15 [History] Isosorbide MONOnitrate (24 HR) [Imdur] 60 mg PO QAM 05/19/17 [History] Pramipexole Di-HCl [Pramipexole Dihydrochloride] 0.5 mg PO BID 05/19/17 [History ] Oxygen 3 l NS AD 06/06/17 [History] Potassium Chloride 20 meq PO QAM 06/06/17 [History] Acetaminophen [Tylenol] 500 mg PO TID 08/11/17 [History] Docusate [Colace] 100 mg PO BID 08/11/17 [History] Fluticasone/Vilanterol [Breo Ellipta 200-25 Mcg INH] 1 puff IH DAILY 08/11/17 [ History] Furosemide [Lasix] 40 mg PO BID 08/11/17 [History] Ipratropium/Albuterol Neb [Duoneb] 3 ml IH BID 08/11/17 [History] Lactose-Reduced Food [Ensure Liquid] 1 bottle PO TIDWM 08/11/17 [History] Simvastatin [Zocor] 10 mg PO HS 08/11/17 [History] Amiodarone [Cordarone] 200 mg PO DAILY tablet 08/17/17 [Rx] Aspirin 81 mg PO DAILY tab.chew 08/17/17 [Rx] Diltiazem CD (24hr) [Cardizem CD] 120 mg PO DAILY cap.er.24h 08/17/17 [Rx] Nitroglycerin [Nitrostat] 0.4 mg SL Q5M PRN 10/01/17 [History] Oxycodone HCl/Acetaminophen [Percocet 5-325 mg Tablet] 1 tab PO Q6H PRN [History] Spironolactone [Aldactone] 25 mg PO DAILY 10/01/17 [History] 3 Allergy/AdvReac Type Severity Reaction Status Date / Time Sulfa (Sulfonamide AdvReac Nausea Verified 08/11/17 15:19 Antibiotics) ROS unobtainable: due to endotracheal tube Palliative Care-Exam - Constitutional Vitals: Temp Pulse Resp BP Pulse Ox 98.6 F 108 15 153/85 98 10/01/17 11:00 10/01/17 11:00 10/01/17 11:00 10/01/17 11:00 10/01/17 11:00 General appearance: Present: cooperative, mild distress (patient tearful and wishes to be extubated.) - Head Head Exam: Present: atraumatic, normal inspection - Eye Eye exam: Present: EOMI, normal appearance. Absent: nystagmus, periorbital swelling, periorbital tenderness Pupils: Present: normal accommodation, PERRL - ENT ENT exam: Present: mucous membranes moist, normal external ear exam - Expanded ENT Exam Mouth Exam: Absent: drooling - Neck Neck exam: Present: full ROM, normal inspection - Respiratory Respiratory exam: Present: CTAB. Absent: accessory muscle use, respiratory distress (intubated.) - Cardiovascular Cardiovascular exam: Present: +S1, +S2 - Expanded Cardiovascular Exam Peripheral pulses: 2+: Radial (L), Radial (R) - GI/Abdominal Exam GI/Abdominal exam: Present: diminished bowel sounds - Rectal Rectal exam: Present: deferred - Catheter Type: Urethral (Ordaz) - Neurological Exam Neurological exam: Present: alert, strengths equal and symetr throughout - Expanded Neurological Exam Speech: Present: total aphasia - Psychiatric Psychiatric exam: Present: anxious (slightly anxious as wanting extubated) Internal Medicine - CN: Reslt - Labs CBC & Chem 7: 10/01/17 07:57 10/01/17 07:57 - ABG Interpretation ABG results: ABG ABG pH 7.23 pH Units (7.32-7.45) L 10/01/17 08:35 ABG pCO2 64 mmHg (35-45) H 10/01/17 08:35 ABG pO2 151 mmHg (85-104) H 10/01/17 08:35 ABG O2 Saturation 99 % (95-98) H 10/01/17 08:35 PT/INR, D-dimer PT 13.0 Seconds (9.4-12.1) H 10/01/17 07:57 Consult Discharge Plan - Plan Referrals: Tamiko Keys, [facility] [Primary Care Provider] - Palliative Quality Palliative Quality: Screen for Code Status: Yes, Screen for Goals of Care: Yes, Screen for Pain: Yes, If Pain Regimen Started, Initiate Bowel Regimen: NA, Screen for Nausea/Vomitting: Yes Code Status: 10/01/17 10:56 Resuscitation Status: Active [RES] Routine Comment: Resuscitation Status: DNR-Comfort Care-Arrest 10/01/17 12:26 Resuscitation Status: Active [RES] Routine Comment: Resuscitation Status: DNR-Comfort Care
[2017-10-01] MEDS ORDERED: *HR* Rocuronium Bromide 100 MG/10 ML VIAL IVC ONE (14:10)
[2017-10-01] MEDS ORDERED: *HR* Etomidate 20 MG/10 ML AMPUL IVP ONE (14:10)
--- NOTE | 2017-10-01 15:04 | Death Note ---
<PadmaElan goodson - Last Filed: 10/01/17 15:04> Discharge Sum: Summary - Date and Time Date of admission: 10/01/17 09:43 - Additional Data Attending physician: Adis Rey MD Discharge Sum: Prov - Provider Primary care physician: Tamiko Keys CNP Consults: 10/01/17 12:44 Consult to Palliative Care [CONS] Routine Comment: Consulting Provider: Palliative Care Olivia Reason for Consult: Possible terminal extubation Call Completed: Yes Consult to Pastoral Services [CONS] Routine Comment: <Adis Rey - Last Filed: 10/02/17 08:35> Discharge Sum: Summary - Date and Time Date of admission: 10/01/17 09:43 - Additional Data Attending physician: Adis Rey MD Discharge Sum: Diag - PCOD Probable Cause of : Acute respiratory failure Discharge Sum: Prov - Provider Primary care physician: Tamiko Keys CNP Consults: 10/01/17 12:44 Consult to Palliative Care [CONS] Routine Comment: Consulting Provider: Palliative Care Olivia Reason for Consult: Possible terminal extubation Call Completed: Yes Consult to Pastoral Services [CONS] Routine Comment: - Attending Attestation I examined this patient and my medical decision-making was reviewed with the Resident Physician. I agree with the documented findings, disposition and treatment plan as described except to the extent set forth below. Patient with poor prognosis and family has stated patient does not want to live on mechanical ventilation and they wanted to honor her wishes for that reason patient was extubated and subsequently she .
--- NOTE | 2017-10-01 15:04 | Death Note ---
Pronouncement Note - Date and Time of Date of : 10/01/17 Time of : 14:11 - PCOD Preliminary cause of : Respiratory arrest - Additional Data Confirmation of : no pulse, no respirations, no heart sounds, pupils fixed and dilated Family: at bedside Attending physician: Adis Rey MD Was code activated?: No Autopsy requested?: No law examiner notified?: Yes
[2017-10-01] MEDS ORDERED: *HR* Heparin 5,000 UNIT/ML VIAL SQ SCH (18:00)
[2017-10-02] MEDS ORDERED: cefTRIAXone 1,000 MG in Water for inj. (sterile) 20 ML 10 ML IVP SCH (09:00)
--- NOTE | 2017-10-04 05:53 | Electrocardiograph Report ---
[address] [place], [place] [address] Test Date: 2017-10-01 Pat Name: Ivette Evans Department: 103 Room: [facility] Gender: F Supervisor [employer]: GLENN : 1930 Requested By: Steve Lezama Order Number: [id number] Reading MD: Sean Gamino Measurements Intervals [place] Rate: 112 P: RI: 0 QRS: 44 QRSD: 125 T: 81 QT: 360 QTc: 426 Interpretive Statements SINUS TACHYCARDIA IVCD Poor R wave progression Electronically Signed On 10-04-2017 5:52:21 EDT by Sean Gamino
== END 2017-10-01 14:11 | disposition expired | DRG 208 ==
LOC: EMEROO 07:48 → ICNU 09:43
PROVIDERS: ADMIT Internal Medicine Pulmonary Disease; ATTEND Internal Medicine Pulmonary Disease